=== PATIENT | male | born 1955 | race Caucasian/White ===

== ENCOUNTER → 2017-01-01 | Outpatient (CLI) | payer MEDICAID | LOC: M OUTALCOH 13:20 | PROVIDERS: ATTEND Psychiatry & Neurology Psychiatry | DX: Z13.9 Encounter for screening, unspecified (principal); F12.20 Cannabis dependence, uncomplicated ==

== ENCOUNTER 2017-01-17 15:30 | Outpatient (RCR) | payer MEDICAID | END 2017-01-22 | LOC: M OUTALCOH 15:30 | PROVIDERS: ATTEND Psychiatry & Neurology Psychiatry | DX: F12.20 Cannabis dependence, uncomplicated (principal) ==

== ENCOUNTER 2017-02-21 15:09 | Outpatient (RCR) | payer MEDICAID | END 2017-02-22 | LOC: M OUTALCOH 15:09 | PROVIDERS: ATTEND Psychiatry & Neurology Psychiatry | DX: F12.20 Cannabis dependence, uncomplicated (principal) ==

== ENCOUNTER 2017-03-21 15:00 | Outpatient (RCR) | payer MEDICAID | END 2017-03-24 | LOC: M OUTALCOH 15:00 | PROVIDERS: ATTEND Psychiatry & Neurology Psychiatry | DX: F12.20 Cannabis dependence, uncomplicated (principal) ==

== ENCOUNTER → 2017-11-05 | Outpatient (CLI) | payer MEDICAID ==
[2017-11-08 00:08] LABS: QUANTIFERON GOLD TB Negative (Negative); TB Test (QFT) Antigen 0.13 IU/mL (.); TB Test (QFT) Antigen Minus Ni 0.09 IU/mL (.); TB Test (QFT) Mitogen >10.00 IU/mL (.); TB Test (QFT) Nil 0.04 IU/mL (.)
== END ==
LOC: M LAB 12:45
DX: Z09 Encounter for follow-up examination after completed treatment for conditions other than malignant neoplasm (principal); R91.8 Other nonspecific abnormal finding of lung field; Z86.11 Personal history of tuberculosis
CPT/HCPCS: 71046

== ENCOUNTER → 2020-03-12 | Outpatient (REF) | payer MEDICAID, OTHER ==
[2020-03-12 18:25] LABS: BASO % 0.7 % (0.0-1.0); EOS # 0.1 10^3/uL (0.0-0.5); EOS % 3.1 % (0.0-3.0); HEMATOCRIT 48.1 % (42.0-52.0); HEMOGLOBIN 16.3 g/dl (13.5-17.5); LYMPH % 23.1 % (24.0-44.0); MEAN CORPUSCULAR HEMOGLOBIN 32.5 pg (27.0-33.0); MEAN CORPUSCULAR HGB CONC 33.9 g/dl (32.0-36.5); MONO # 0.5 10^3/uL (0.0-0.8); MONO % 10.2 % (0.0-5.0); NEUTROPHILS # 2.8 10^3/uL (1.5-8.5); NEUTROPHILS % 62.7 % (36.0-66.0); PLATELET COUNT, AUTOMATED 105 10^3/uL (150-450); RED BLOOD COUNT 5.01 10^6/uL (4.30-6.10); WHITE BLOOD COUNT 4.5 10^3/uL (4.0-10.0)
[2020-03-12 18:34] LABS: ALBUMIN 3.4 GM/DL (3.2-5.2); ALT/SGPT 93 U/L (12-78); BILIRUBIN,TOTAL 1.5 MG/DL (0.2-1.0); BLOOD UREA NITROGEN 15 MG/DL (7-18); CALCIUM LEVEL 8.6 MG/DL (8.8-10.2); CARBON DIOXIDE LEVEL 29 MEQ/L (21-32); CHLORIDE LEVEL 107 MEQ/L (98-107); CHOLESTEROL LEVEL 185 MG/DL (<200); CREATININE FOR GFR 0.81 MG/DL (0.70-1.30); GLOMERULAR FILTRATION RATE > 60.0 (>49); GLUCOSE, FASTING 131 MG/DL (70-100); HDL CHOLESTEROL 100 MG/DL (>40); LDL CHOLESTEROL 75 MG/DL (<100); NON-HDL-C 85 MG/DL; POTASSIUM SERUM 4.1 MEQ/L (3.5-5.1); SODIUM LEVEL 140 MEQ/L (136-145); THYROID STIMULATING HORMONE 0.711 uIU/ML (0.358-3.740); TOTAL PROTEIN 7.4 GM/DL (6.4-8.2); TRIGLYCERIDES LEVEL 50 MG/DL (<150)
[2020-03-12 18:54] LABS: HEMOGLOBIN A1c 5.1 %
== END ==
LOC: M LAB REF 16:22
PROVIDERS: ATTEND Physician Assistant
DX: I10 Essential (primary) hypertension (principal); B17.10 Acute hepatitis C without hepatic coma

== ENCOUNTER → 2021-11-22 | Outpatient (CLI) | payer MEDICARE, OTHER ==
[2021-11-22 15:50] LABS: BASO # 0.1 10^3/uL (0.0-0.2); BASO % 1.2 % (0.0-1.0); EOS # 0.1 10^3/uL (0.0-0.5); EOS % 2.6 % (0.0-3.0); HEMATOCRIT 43.5 % (42.0-52.0); HEMOGLOBIN 14.6 g/dl (13.5-17.5); LYMPH # 1.1 10^3/uL (1.5-5.0); LYMPH % 22.5 % (24.0-44.0); MEAN CORPUSCULAR HEMOGLOBIN 31.1 pg (27.0-33.0); MEAN CORPUSCULAR HGB CONC 33.6 g/dl (32.0-36.5); MEAN CORPUSCULAR VOLUME 92.6 fl (80.0-96.0); MONO # 0.6 10^3/uL (0.0-0.8); MONO % 11.2 % (2.0-8.0); NEUTROPHILS # 3.2 10^3/uL (1.5-8.5); NEUTROPHILS % 62.5 % (36.0-66.0); PLATELET COUNT, AUTOMATED 103 10^3/uL (150-450); WHITE BLOOD COUNT 5.1 10^3/uL (4.0-10.0)
[2021-11-22 16:11] LABS: INR 1.24
[2021-11-22 16:19] LABS: ALBUMIN 2.8 GM/DL (3.2-5.2); ALT/SGPT 41 U/L (12-78); BILIRUBIN,TOTAL 1.7 MG/DL (0.2-1.0); BLOOD UREA NITROGEN 12 MG/DL (7-18); CALCIUM LEVEL 8.3 MG/DL (8.8-10.2); CARBON DIOXIDE LEVEL 32 MEQ/L (21-32); CHLORIDE LEVEL 103 MEQ/L (98-107); CREATININE FOR GFR 0.87 MG/DL (0.70-1.30); GLOMERULAR FILTRATION RATE > 60.0 (>49); GLUCOSE, FASTING 92 MG/DL (70-100); POTASSIUM SERUM 3.6 MEQ/L (3.5-5.1); SODIUM LEVEL 138 MEQ/L (136-145); TOTAL PROTEIN 6.9 GM/DL (6.4-8.2)
[2021-11-22 16:40] LABS: HEPATITIS B SURFACE ANTIBODY NEGATIVE (POSITIVE)
[2021-11-22 16:50] LABS: HEPATITIS B SURFACE ANTIGEN NEGATIVE (NEGATIVE)
[2021-11-22 17:19] LABS: HIV 1&2 SCREEN CENTAUR NEGATIVE (NEGATIVE)
[2021-11-25 21:09] LABS: HEPATITIS A IgG TOTAL Positive (Negative); HEPATITIS B CORE ANTIBODY IGG Negative (Negative); HEPATITIS C QUANTITATION 946000 IU/mL (.); HEPATITIS C VIRUS GENOTYPE 1b (.)
== END ==
LOC: M PLALAB 13:24
PROVIDERS: ATTEND Internal Medicine Infectious Disease
DX: B18.2 Chronic viral hepatitis C (principal); K70.31 Alcoholic cirrhosis of liver with ascites

== ENCOUNTER → 2021-12-13 | Outpatient (CLI) | payer MEDICARE, OTHER ==
[~2021-12-13] MED LIST: ATEN50TA2 PO; FURO40TA2 PO; KRIS20PA4 PO; PANT40TA29 PO; SPIR-10 PO; TAMS1CAP17 PO
[2021-12-13 15:49] LABS: BASO # 0.1 10^3/uL (0.0-0.2); BASO % 1.2 % (0.0-1.0); EOS # 0.1 10^3/uL (0.0-0.5); EOS % 2.6 % (0.0-3.0); HEMATOCRIT 45.6 % (42.0-52.0); HEMOGLOBIN 15.2 g/dl (13.5-17.5); LYMPH # 1.1 10^3/uL (1.5-5.0); LYMPH % 21.9 % (24.0-44.0); MEAN CORPUSCULAR HEMOGLOBIN 30.8 pg (27.0-33.0); MEAN CORPUSCULAR HGB CONC 33.3 g/dl (32.0-36.5); MEAN CORPUSCULAR VOLUME 92.3 fl (80.0-96.0); MONO # 0.6 10^3/uL (0.0-0.8); MONO % 12.1 % (2.0-8.0); NEUTROPHILS # 3.1 10^3/uL (1.5-8.5); RED BLOOD COUNT 4.94 10^6/uL (4.30-6.10)
[2021-12-13 15:51] LABS: PLATELET COUNT, AUTOMATED 99 10^3/uL (150-450)
[2021-12-13 15:57] LABS: INR 1.15; PROTHROMBIN TIME 15.1 SECONDS (12.7-14.5)
[2021-12-13 15:58] LABS: PARTIAL THROMBOPLASTIN TIME 33.4 SECONDS (25.9-37.0)
[2021-12-13 15:59] LABS: BLOOD UREA NITROGEN 13 MG/DL (7-18); CARBON DIOXIDE LEVEL 33 MEQ/L (21-32); CHLORIDE LEVEL 103 MEQ/L (98-107); GLOMERULAR FILTRATION RATE > 60.0 (>49); GLUCOSE, FASTING 110 MG/DL (70-100); SODIUM LEVEL 142 MEQ/L (136-145)
[2021-12-13 16:00] LABS: ALT/SGPT 36 U/L (12-78); CALCIUM LEVEL 8.6 MG/DL (8.8-10.2); TOTAL PROTEIN 7.1 GM/DL (6.4-8.2)
== END ==
LOC: M PLAIMG 13:42
PROVIDERS: ATTEND Physician Assistant
DX: R33.8 Other retention of urine (principal); B18.2 Chronic viral hepatitis C

== ENCOUNTER → 2021-12-14 | Outpatient (REF) | payer MEDICARE, OTHER ==
[2021-12-14 18:52] LABS: APPEARANCE, URINE CLEAR (CLEAR); BACTERIA, URINE AUTO NEGATIVE (NEGATIVE); BILIRUBIN, URINE AUTO NEGATIVE (NEGATIVE); BLOOD, URINE BLOOD 2+ (NEGATIVE); COLOR, URINE YELLOW (YELLOW); GLUCOSE, URINE (UA) AUTO NEGATIVE (NEGATIVE); KETONE, URINE AUTO NEGATIVE (NEGATIVE); LEUKOCYTE ESTERASE, URINE AUTO 3+ (NEGATIVE); NITRITE, URINE AUTO NEGATIVE (NEGATIVE); PROTEIN, URINE AUTO NEGATIVE (NEGATIVE); RBC, URINE AUTO 14 /HPF (0-3); SPECIFIC GRAVITY URINE AUTO 1.009 (1.002-1.035); SQUAMOUS EPITHELIAL CELL UR AU 0 /HPF (0-6); UROBILINOGEN, URINE AUTO 0.2 mg/dL (0.0-2.0); WBC, URINE AUTO 16 /HPF (0-3)
== END ==
LOC: M SMT 16:59
PROVIDERS: ATTEND Physician Assistant
DX: Z01.818 Encounter for other preprocedural examination (principal); Z79.899 Other long term (current) drug therapy

== ENCOUNTER → 2022-01-26 | Outpatient (CLI) | payer MEDICARE, OTHER ==
[2022-01-26 17:47] LABS: BASO % 0.9 % (0.0-1.0); EOS # 0.1 10^3/uL (0.0-0.5); EOS % 1.4 % (0.0-3.0); HEMATOCRIT 36.3 % (42.0-52.0); HEMOGLOBIN 11.9 g/dl (13.5-17.5); LYMPH # 0.8 10^3/uL (1.5-5.0); LYMPH % 18.9 % (24.0-44.0); MEAN CORPUSCULAR HEMOGLOBIN 31.3 pg (27.0-33.0); MEAN CORPUSCULAR HGB CONC 32.8 g/dl (32.0-36.5); MEAN CORPUSCULAR VOLUME 95.5 fl (80.0-96.0); MONO # 0.4 10^3/uL (0.0-0.8); NEUTROPHILS % 68.6 % (36.0-66.0); PLATELET COUNT, AUTOMATED 105 10^3/uL (150-450); WHITE BLOOD COUNT 4.4 10^3/uL (4.0-10.0)
[2022-01-26 17:53] LABS: INR 1.22; PROTHROMBIN TIME 15.8 SECONDS (12.7-14.5)
[2022-01-26 21:55] LABS: ALBUMIN 3.1 GM/DL (3.2-5.2); ALT/SGPT 20 U/L (12-78); BILIRUBIN,TOTAL 3.3 MG/DL (0.2-1.0); BLOOD UREA NITROGEN 16 MG/DL (7-18); CALCIUM LEVEL 8.8 MG/DL (8.8-10.2); CARBON DIOXIDE LEVEL 29 MEQ/L (21-32); CHLORIDE LEVEL 103 MEQ/L (98-107); GLOMERULAR FILTRATION RATE > 60.0 (>49); GLUCOSE, FASTING 94 MG/DL (70-100); IRON (FE) 85 UG/DL (65-175); PERCENT SATURATION 36.2 % (19.7-50.0); POTASSIUM SERUM 3.8 MEQ/L (3.5-5.1); SODIUM LEVEL 139 MEQ/L (136-145); TOTAL IRON BINDING CAPACITY 235 UG/DL (250-450); TOTAL PROTEIN 6.7 GM/DL (6.4-8.2)
[2022-01-31 16:08] LABS: ANCA-ATYPICAL <1:20 titer (Neg:<1:20); ANTI-MITOCHONDRIAL ANTIBODY <20.0 Units (0.0-20.0); ANTINUCLEAR ANTIBODIES DIRECT Negative (Negative); CYTOPLASMIC NEUTROP AB ANCA-C <1:20 titer (Neg:<1:20); LIVER-KIDNEY MICROSOMAL ABY <20.1 Units (0.0-20.0); PERINUCLEAR AB ANCA-P <1:20 titer (Neg:<1:20)
== END ==
LOC: M PLALAB 14:57
PROVIDERS: ATTEND Internal Medicine Gastroenterology
DX: K70.31 Alcoholic cirrhosis of liver with ascites (principal)

== ENCOUNTER → 2022-01-26 | Outpatient (CLI) | payer MEDICARE, OTHER ==
[2022-01-28 20:07] LABS: HEPATITIS C QUANTITATION <15 IU/mL (.)
== END ==
LOC: M PLALAB 14:54
PROVIDERS: ATTEND Internal Medicine Infectious Disease
DX: B18.2 Chronic viral hepatitis C (principal)

== ENCOUNTER → 2022-02-13 | Outpatient (CLI) | payer MEDICARE, OTHER | LOC: M RAD 08:37 | PROVIDERS: ATTEND Internal Medicine Gastroenterology | DX: K70.31 Alcoholic cirrhosis of liver with ascites (principal) ==

== ENCOUNTER → 2022-03-15 | Outpatient (CLI) | payer MEDICARE, OTHER ==
[~2022-03-15] MED LIST changes: +LIDOCAINE 1% MDV 20ML VIAL As Ordered ONE
[2022-03-15 11:42] VITALS: BP 106/44
[2022-03-15 12:13] VITALS: BP 116/81
[2022-03-15 12:35] VITALS: BP 114/58
[2022-03-15 12:46] VITALS: BP 114/60
== END ==
LOC: M IRPRO 10:34
PROVIDERS: ATTEND Internal Medicine Gastroenterology
DX: K70.31 Alcoholic cirrhosis of liver with ascites (principal)
CPT/HCPCS: 49083; 96365; P9047

== ENCOUNTER → 2022-03-28 | Outpatient (CLI) | payer MEDICARE, MEDICAID ==
[~2022-03-28] MED LIST changes: -LIDOCAINE 1% MDV 20ML VIAL As Ordered ONE
[2022-03-28 10:53] VITALS: BP 134/84
[2022-03-28 10:58] VITALS: BP 138/110
[2022-03-28 11:02] VITALS: BP 130/78
[2022-03-28 11:32] VITALS: BP 134/73
[2022-03-28 11:45] VITALS: BP 128/72
== END ==
LOC: M IRPRO 09:27
PROVIDERS: ATTEND Internal Medicine Gastroenterology
DX: K70.31 Alcoholic cirrhosis of liver with ascites (principal)
CPT/HCPCS: 49083; 96365; P9047

== ENCOUNTER → 2022-04-18 | Outpatient (CLI) | payer MEDICARE, OTHER ==
[2022-04-18 11:14] VITALS: BP 128/79
[2022-04-18 11:29] VITALS: BP 112/70
[2022-04-18 11:36] VITALS: BP 121/79
[2022-04-18 11:45] VITALS: BP 123/83
== END ==
LOC: M IRPRO 10:24
PROVIDERS: ATTEND Internal Medicine Gastroenterology
DX: K70.31 Alcoholic cirrhosis of liver with ascites (principal)
CPT/HCPCS: 49083; 96365; P9047

== ENCOUNTER → 2022-05-02 | Outpatient (CLI) | payer MEDICAID, MEDICARE ==
[2022-05-02 14:14] VITALS: BP 135/75
[2022-05-02 14:18] VITALS: BP 131/71
[2022-05-02 14:31] VITALS: BP 132/80
[2022-05-02 14:37] VITALS: BP 133/76
[2022-05-02 15:37] LABS: APPEARANCE, BODY FLUID HAZY (CLEAR); ASCITES FL COLOR YELLOW (COLORLESS); SOURCE, BODY FLUID ASCITES
[2022-05-02 16:30] LABS: SOURCE, BODY FLUID ALBUMIN ASCITES; SOURCE, BODY FLUID TOT PROTEIN ASCITES; TOTAL PROTEIN, BODY FLUID 1.1 G/DL (NOT ESTABLISHED)
== END ==
LOC: M IRPRO 13:21
PROVIDERS: ATTEND Internal Medicine Gastroenterology
DX: K70.31 Alcoholic cirrhosis of liver with ascites (principal)
CPT/HCPCS: 49083; 82042; 84157; 88108; 88305; 88313; 89051; 96365; P9047

== ENCOUNTER 2022-05-16 10:26 | Emergency (ER) | payer MEDICARE, MEDICAID ==
[~2022-05-16] VITALS: Ht 190.5 cm; Wt 111.5 kg
[2022-05-16 10:27] VITALS: BP 150/80
[2022-05-16 11:38] LABS: BASO % 0.1 % (0.0-1.0); EOS % 0.2 % (0.0-3.0); HEMATOCRIT 41.4 % (42.0-52.0); HEMOGLOBIN 13.2 g/dl (13.5-17.5); LYMPH # 0.6 10^3/uL (1.5-5.0); LYMPH % 6.3 % (24.0-44.0); MEAN CORPUSCULAR HEMOGLOBIN 30.8 pg (27.0-33.0); MEAN CORPUSCULAR HGB CONC 31.9 g/dl (32.0-36.5); MEAN CORPUSCULAR VOLUME 96.5 fl (80.0-96.0); MONO # 1.1 10^3/uL (0.0-0.8); MONO % 11.7 % (2.0-8.0); NEUTROPHILS # 7.6 10^3/uL (1.5-8.5); NEUTROPHILS % 81.4 % (36.0-66.0); PLATELET COUNT, AUTOMATED 111 10^3/uL (150-450); RED BLOOD COUNT 4.29 10^6/uL (4.30-6.10); WHITE BLOOD COUNT 9.3 10^3/uL (4.0-10.0)
[2022-05-16 11:51] LABS: INR 1.33; PROTHROMBIN TIME 16.7 SECONDS (12.5-14.5)
[2022-05-16 11:52] LABS: PARTIAL THROMBOPLASTIN TIME 32.2 SECONDS (24.8-34.2)
[2022-05-16 12:07] LABS: ALBUMIN 2.7 G/DL (3.2-5.2); ALKALINE PHOSPHATASE 122 U/L (46-116); ALT/SGPT 24 U/L (7.0-40); AST/SGOT 29 U/L (<34); BILIRUBIN,DIRECT 1.9 MG/DL (<0.4); BLOOD UREA NITROGEN 34 MG/DL (9-23); CALCIUM LEVEL 7.9 MG/DL (8.3-10.6); CARBON DIOXIDE LEVEL 27 MMOL/L (20-31); CHLORIDE LEVEL 101 MMOL/L (98-107); GLOMERULAR FILTRATION RATE > 60.0 (>49); GLUCOSE, FASTING 112 MG/DL (74-106); LIPASE 28 U/L (12-53); POTASSIUM SERUM 3.9 MMOL/L (3.5-5.1); SODIUM LEVEL 137 MMOL/L (136-145); TOTAL PROTEIN 5.8 G/DL (5.7-8.2)
== END 2022-05-16 13:59 | disposition left against medical advice (07) ==
LOC: M ED 10:26
DX: R18.8 Other ascites (principal); I25.2 Old myocardial infarction; K74.60 Unspecified cirrhosis of liver; Z79.899 Other long term (current) drug therapy; Z86.69 Personal history of other diseases of the nervous system and sense organs
CPT/HCPCS: 36415; 80048; 80076; 83690; 85025; 85610; 85730; 99281; G0463

== ENCOUNTER → 2022-05-17 | Outpatient (CLI) | payer MEDICARE ==
[~2022-05-17] MED LIST changes: +ALBU8.5H INH; +ERGO500029 PO; +LACT20EL PO; +OXYB10TA23 PO; +SPIR100T3 PO; +TRIA1CR80 TOP; +XIFA550T PO
[2022-05-17 13:48] VITALS: BP 147/84
[2022-05-17 13:58] VITALS: BP 147/84
[2022-05-17 14:07] VITALS: BP 144/86
== END ==
LOC: M IRPRO 12:07
PROVIDERS: ATTEND Internal Medicine Gastroenterology
DX: K70.31 Alcoholic cirrhosis of liver with ascites (principal)
CPT/HCPCS: 49083; 96365; P9047

== ENCOUNTER 2022-05-22 14:15 | Emergency (ER) | payer MEDICARE ==
[~2022-05-22] VITALS: Ht 190.5 cm; Wt 108.2 kg
[~2022-05-22 14:15] MED LIST changes: -ALBU8.5H INH; -ERGO500029 PO; -LACT20EL PO; -OXYB10TA23 PO; -SPIR100T3 PO; -TRIA1CR80 TOP; -XIFA550T PO
[2022-05-22 15:20] LABS: BASO % 0.4 % (0.0-1.0); EOS % 0.3 % (0.0-3.0); HEMATOCRIT 41.5 % (42.0-52.0); HEMOGLOBIN 13.4 g/dl (13.5-17.5); LYMPH # 0.9 10^3/uL (1.5-5.0); LYMPH % 7.9 % (24.0-44.0); MEAN CORPUSCULAR HEMOGLOBIN 30.5 pg (27.0-33.0); MEAN CORPUSCULAR HGB CONC 32.3 g/dl (32.0-36.5); MEAN CORPUSCULAR VOLUME 94.3 fl (80.0-96.0); MONO # 0.9 10^3/uL (0.0-0.8); MONO % 8.4 % (2.0-8.0); NEUTROPHILS # 9.1 10^3/uL (1.5-8.5); NEUTROPHILS % 82.5 % (36.0-66.0); PLATELET COUNT, AUTOMATED 186 10^3/uL (150-450)
[2022-05-22 15:45] LABS: CHLORIDE LEVEL 103 MMOL/L (98-107); POTASSIUM SERUM 4.1 MMOL/L (3.5-5.1); SODIUM LEVEL 138 MMOL/L (136-145)
[2022-05-22 15:46] LABS: ALBUMIN 2.6 G/DL (3.2-5.2); CARBON DIOXIDE LEVEL 27 MMOL/L (20-31)
[2022-05-22 15:51] LABS: BLOOD UREA NITROGEN 23 MG/DL (9-23); CALCIUM LEVEL 8.1 MG/DL (8.3-10.6); GLUCOSE, FASTING 123 MG/DL (74-106)
[2022-05-22 15:52] LABS: ALKALINE PHOSPHATASE 163 U/L (46-116); LIPASE 20 U/L (12-53)
[2022-05-22 15:53] LABS: ALT/SGPT 35 U/L (7.0-40); AST/SGOT 35 U/L (<34); BILIRUBIN,TOTAL 1.7 MG/DL (0.3-1.2); CREATININE FOR GFR 0.98 MG/DL (0.70-1.30); GLOMERULAR FILTRATION RATE > 60.0 (>49); TOTAL PROTEIN 5.7 G/DL (5.7-8.2)
[2022-05-22] MEDS ORDERED: TRIA1CR80 TOP (20:14)
[2022-05-22] MEDS ORDERED: ERGO500029 PO (20:14)
[2022-05-22] MEDS ORDERED: XIFA550T PO (20:14)
[2022-05-22] MEDS ORDERED: SPIR100T3 PO (20:14)
[2022-05-22] MEDS ORDERED: LACT20EL PO (20:14)
[2022-05-22] MEDS ORDERED: ALBU8.5H INH (20:14)
[2022-05-22] MEDS ORDERED: OXYB10TA23 PO (20:14)
[2022-05-22] MEDS ORDERED: HOME MED LIST COMPLETE! XX SCH (20:15)
[2022-05-22 20:18] VITALS: BP 119/74
== END 2022-05-22 21:44 | disposition home or self-care (01) ==
LOC: M ED 14:15
DX: K40.90 Unilateral inguinal hernia, without obstruction or gangrene, not specified as recurrent (principal); K42.9 Umbilical hernia without obstruction or gangrene; I10 Essential (primary) hypertension; B18.2 Chronic viral hepatitis C; Z87.891 Personal history of nicotine dependence; Z79.51 Long term (current) use of inhaled steroids; Z79.2 Long term (current) use of antibiotics; Z79.83 Long term (current) use of bisphosphonates; Z79.899 Other long term (current) drug therapy

== ENCOUNTER → 2022-05-25 | Outpatient (CLI) | payer MEDICARE ==
[~2022-05-25] MED LIST changes: +ALBU8.5H INH; +ERGO500029 PO; +LACT20EL PO; +OXYB10TA23 PO; +SPIR100T3 PO; +TRIA1CR80 TOP; +XIFA550T PO
[2022-05-25 15:15] LABS: HEMOGLOBIN 12.7 g/dl (13.5-17.5); MEAN CORPUSCULAR HEMOGLOBIN 30.3 pg (27.0-33.0); MEAN CORPUSCULAR HGB CONC 32.6 g/dl (32.0-36.5); MEAN CORPUSCULAR VOLUME 93.1 fl (80.0-96.0); PLATELET COUNT, AUTOMATED 160 10^3/uL (150-450); RED BLOOD COUNT 4.19 10^6/uL (4.30-6.10); WHITE BLOOD COUNT 6.1 10^3/uL (4.0-10.0)
[2022-05-25 15:40] LABS: ALBUMIN 3.2 G/DL (3.2-5.2); ALKALINE PHOSPHATASE 159 U/L (46-116); ALT/SGPT 32 U/L (7.0-40); AST/SGOT 37 U/L (<34); BILIRUBIN,TOTAL 1.6 MG/DL (0.3-1.2); BLOOD UREA NITROGEN 22 MG/DL (9-23); CALCIUM LEVEL 8.2 MG/DL (8.3-10.6); CARBON DIOXIDE LEVEL 27 MMOL/L (20-31); CHLORIDE LEVEL 103 MMOL/L (98-107); CREATININE FOR GFR 0.88 MG/DL (0.70-1.30); GLOMERULAR FILTRATION RATE > 60.0 (>49); GLUCOSE, FASTING 118 MG/DL (74-106); POTASSIUM SERUM 3.9 MMOL/L (3.5-5.1); SODIUM LEVEL 138 MMOL/L (136-145)
[2022-05-28 02:06] LABS: HEPATITIS C QUANTITATION HCV Not Detected IU/mL (.)
== END ==
LOC: M LAB 13:54
PROVIDERS: ATTEND Internal Medicine Infectious Disease
DX: B18.2 Chronic viral hepatitis C (principal)

== ENCOUNTER → 2022-05-25 | Outpatient (CLI) | payer MEDICARE ==
[2022-05-25 12:07] VITALS: BP 122/71
[2022-05-25 12:17] VITALS: BP 132/82
[2022-05-25 12:25] VITALS: BP 141/88
[2022-05-25 12:32] VITALS: BP 141/88
== END ==
LOC: M IRPRO 10:36
PROVIDERS: ATTEND Internal Medicine Gastroenterology
DX: K70.31 Alcoholic cirrhosis of liver with ascites (principal)
CPT/HCPCS: 36415; 49083; 80053; 85027; 87522; 96365; P9047

== ENCOUNTER → 2022-06-01 | Outpatient (CLI) | payer MEDICARE ==
[2022-06-01 11:25] LABS: BASO # 0.1 10^3/uL (0.0-0.2); EOS # 0.1 10^3/uL (0.0-0.5); EOS % 1.4 % (0.0-3.0); HEMATOCRIT 39.4 % (42.0-52.0); HEMOGLOBIN 12.9 g/dl (13.5-17.5); LYMPH # 0.8 10^3/uL (1.5-5.0); LYMPH % 16.3 % (24.0-44.0); MEAN CORPUSCULAR HEMOGLOBIN 30.1 pg (27.0-33.0); MEAN CORPUSCULAR HGB CONC 32.7 g/dl (32.0-36.5); MEAN CORPUSCULAR VOLUME 91.8 fl (80.0-96.0); MONO # 0.5 10^3/uL (0.0-0.8); MONO % 9.5 % (2.0-8.0); NEUTROPHILS # 3.6 10^3/uL (1.5-8.5); NEUTROPHILS % 71.6 % (36.0-66.0); PLATELET COUNT, AUTOMATED 116 10^3/uL (150-450); RED BLOOD COUNT 4.29 10^6/uL (4.30-6.10)
[2022-06-01 11:38] LABS: ALBUMIN 2.5 G/DL (3.2-5.2); ALKALINE PHOSPHATASE 158 U/L (46-116); ALT/SGPT 30 U/L (7.0-40); AST/SGOT 32 U/L (<34); BILIRUBIN,TOTAL 1.1 MG/DL (0.3-1.2); BLOOD UREA NITROGEN 25 MG/DL (9-23); CARBON DIOXIDE LEVEL 27 MMOL/L (20-31); CHLORIDE LEVEL 102 MMOL/L (98-107); CREATININE FOR GFR 0.99 MG/DL (0.70-1.30); GLOMERULAR FILTRATION RATE > 60.0 (>49); GLUCOSE, FASTING 165 MG/DL (74-106); POTASSIUM SERUM 3.6 MMOL/L (3.5-5.1); SODIUM LEVEL 136 MMOL/L (136-145); TOTAL PROTEIN 5.3 G/DL (5.7-8.2)
[2022-06-01 11:40] VITALS: BP 122/71
[2022-06-01 11:48] VITALS: BP 119/70
[2022-06-01 11:56] VITALS: BP 120/71
[2022-06-01 12:00] VITALS: BP 121/69
[2022-06-03 00:08] LABS: HEPATITIS C QUANTITATION HCV Not Detected IU/mL (.)
== END ==
LOC: M IRPRO 10:04
PROVIDERS: ATTEND Internal Medicine Gastroenterology
DX: K70.31 Alcoholic cirrhosis of liver with ascites (principal)
CPT/HCPCS: 49083; 51702; 80053; 82105; 85025; 87522; 96365; G0463; P9047

== ENCOUNTER → 2022-06-08 | Outpatient (CLI) | payer MEDICARE ==
[2022-06-08 11:21] VITALS: BP 116/71
[2022-06-08 11:31] VITALS: BP 118/75
[2022-06-08 11:38] VITALS: BP 118/76
[2022-06-08 11:43] VITALS: BP 117/72
[2022-06-08 11:49] VITALS: BP 115/75
== END ==
LOC: M IRPRO 10:05
PROVIDERS: ATTEND Internal Medicine Gastroenterology
DX: K70.31 Alcoholic cirrhosis of liver with ascites (principal)
CPT/HCPCS: 49083; 96365; P9047

== ENCOUNTER → 2022-06-14 | Outpatient (CLI) | payer MEDICARE, OTHER ==
[2022-06-14 15:19] VITALS: BP 116/61
[2022-06-14 15:23] VITALS: BP 120/68
[2022-06-14 15:29] VITALS: BP 112/64
[2022-06-14 15:35] VITALS: BP 115/65
[2022-06-14 15:38] VITALS: BP 130/82
== END ==
LOC: M IRPRO 12:46
PROVIDERS: ATTEND Internal Medicine Gastroenterology
DX: K70.31 Alcoholic cirrhosis of liver with ascites (principal)
CPT/HCPCS: 49083; 96365; P9047

== ENCOUNTER → 2022-06-22 | Outpatient (CLI) | payer MEDICARE ==
[2022-06-22 11:18] VITALS: BP 131/70
[2022-06-22 11:26] VITALS: BP 160/72
[2022-06-22 11:33] VITALS: BP 132/75
[2022-06-22 11:40] VITALS: BP 134/74
[2022-06-22 11:47] VITALS: BP 142/82
== END ==
LOC: M IRPRO 09:56
PROVIDERS: ATTEND Internal Medicine Gastroenterology
DX: R18.8 Other ascites (principal); K74.60 Unspecified cirrhosis of liver
CPT/HCPCS: 49083; 96365; P9047

== ENCOUNTER → 2022-06-29 | Outpatient (CLI) | payer MEDICARE ==
[2022-06-29 10:22] VITALS: BP 127/72
[2022-06-29 10:32] VITALS: BP 133/68
[2022-06-29 10:41] VITALS: BP 128/69
[2022-06-29 10:53] VITALS: BP 111/63
== END ==
LOC: M IRPRO 09:44
PROVIDERS: ATTEND Internal Medicine Gastroenterology
DX: K70.31 Alcoholic cirrhosis of liver with ascites (principal)
CPT/HCPCS: 49083; 96365; P9047

== ENCOUNTER → 2022-07-07 | Outpatient (CLI) | payer MEDICARE, OTHER ==
[~2022-07-07] MED LIST changes: +LIDOCAINE 1% MDV 20ML VIAL As Ordered ONE
[2022-07-07 12:39] VITALS: BP 117/80
[2022-07-07 12:49] VITALS: BP 124/71
[2022-07-07 13:07] VITALS: BP 128/65
[2022-07-07 13:20] VITALS: BP 114/70
== END ==
LOC: M IRPRO 12:07
PROVIDERS: ATTEND Internal Medicine Gastroenterology
DX: R18.8 Other ascites (principal)
CPT/HCPCS: 49083; 96365; P9047

== ENCOUNTER → 2022-07-13 | Outpatient (CLI) | payer MEDICARE, OTHER ==
[2022-07-13 12:04] VITALS: BP 112/70
[2022-07-13 12:14] VITALS: BP 111/64
[2022-07-13 12:24] VITALS: BP 111/62
[2022-07-13 12:31] VITALS: BP 118/65
== END ==
LOC: M IRPRO 10:47
PROVIDERS: ATTEND Internal Medicine Gastroenterology
DX: K70.31 Alcoholic cirrhosis of liver with ascites (principal)
CPT/HCPCS: 49083; 96365; P9047

== ENCOUNTER → 2022-07-18 | Outpatient (POV) | payer MEDICARE ==
[~2022-07-18] VITALS: Ht 190.5 cm; Wt 100.9 kg
[~2022-07-18] MED LIST changes: -LIDOCAINE 1% MDV 20ML VIAL As Ordered ONE
[2022-07-18 09:30] VITALS: BP 125/86
== END ==
LOC: M IRPOV 09:16
PROVIDERS: ATTEND Radiology Diagnostic Radiology
DX: K70.30 Alcoholic cirrhosis of liver without ascites (principal); R18.8 Other ascites; R41.89 Other symptoms and signs involving cognitive functions and awareness; Z79.51 Long term (current) use of inhaled steroids; Z79.899 Other long term (current) drug therapy; Z86.11 Personal history of tuberculosis; Z86.19 Personal history of other infectious and parasitic diseases; Z87.891 Personal history of nicotine dependence

== ENCOUNTER → 2022-07-20 | Outpatient (CLI) | payer MEDICARE, OTHER ==
[~2022-07-20] MED LIST changes: +LIDOCAINE 1% MDV 20ML VIAL As Ordered ONE
[2022-07-20 14:11] VITALS: BP 118/58
[2022-07-20 14:34] VITALS: BP 119/72
[2022-07-20 14:36] VITALS: BP 123/77
[2022-07-20 14:57] VITALS: BP 115/79
[2022-07-20 15:34] VITALS: BP 123/76
== END ==
LOC: M IRPRO 13:51
PROVIDERS: ATTEND Internal Medicine Gastroenterology
DX: K70.31 Alcoholic cirrhosis of liver with ascites (principal)
CPT/HCPCS: 49083; 96365; P9047

== ENCOUNTER → 2022-07-27 | Outpatient (CLI) | payer MEDICARE, OTHER ==
[~2022-07-27] MED LIST changes: -LIDOCAINE 1% MDV 20ML VIAL As Ordered ONE
[2022-07-27 11:16] VITALS: BP 135/91
[2022-07-27 11:19] VITALS: BP 137/89
[2022-07-27 11:24] VITALS: BP 125/84
[2022-07-27 11:27] VITALS: BP 144/81
[2022-07-27 11:45] VITALS: BP 144/79
== END ==
LOC: M IRPRO 10:37
PROVIDERS: ATTEND Internal Medicine Gastroenterology
DX: K70.31 Alcoholic cirrhosis of liver with ascites (principal)
CPT/HCPCS: 49083; 96365; P9047

== ENCOUNTER → 2022-08-03 | Outpatient (CLI) | payer MEDICARE, OTHER ==
[~2022-08-03] MED LIST changes: +LIDOCAINE 1% MDV 20ML VIAL As Ordered ONE
[2022-08-03 14:29] VITALS: BP 135/65
[2022-08-03 14:35] VITALS: BP 116/73
[2022-08-03 14:40] VITALS: BP 117/67
[2022-08-03 14:45] VITALS: BP 127/80
[2022-08-03 14:54] VITALS: BP 125/76
== END ==
LOC: M IRPRO 14:01
PROVIDERS: ATTEND Internal Medicine Gastroenterology
DX: K70.31 Alcoholic cirrhosis of liver with ascites (principal)
CPT/HCPCS: 49083; 96365; P9047

== ENCOUNTER → 2022-08-07 | Outpatient (CLI) | payer MEDICARE, OTHER ==
[~2022-08-07] MED LIST changes: -LIDOCAINE 1% MDV 20ML VIAL As Ordered ONE
[2022-08-07 14:38] LABS: EOS # 0.1 10^3/uL (0.0-0.5); EOS % 2.9 % (0.0-3.0); HEMOGLOBIN 13.2 g/dl (13.5-17.5); LYMPH # 0.8 10^3/uL (1.5-5.0); LYMPH % 19.5 % (24.0-44.0); MEAN CORPUSCULAR HEMOGLOBIN 30.7 pg (27.0-33.0); MEAN CORPUSCULAR HGB CONC 33.8 g/dl (32.0-36.5); MEAN CORPUSCULAR VOLUME 90.7 fl (80.0-96.0); MONO # 0.5 10^3/uL (0.0-0.8); MONO % 10.7 % (2.0-8.0); NEUTROPHILS # 2.8 10^3/uL (1.5-8.5); NEUTROPHILS % 65.7 % (36.0-66.0); WHITE BLOOD COUNT 4.2 10^3/uL (4.0-10.0)
[2022-08-07 15:04] LABS: ALKALINE PHOSPHATASE 108 U/L (46-116); ALT/SGPT 20 U/L (7.0-40); AST/SGOT 30 U/L (<34); BLOOD UREA NITROGEN 15 MG/DL (9-23); CARBON DIOXIDE LEVEL 30 MMOL/L (20-31); CHLORIDE LEVEL 102 MMOL/L (98-107); CREATININE FOR GFR 1.18 MG/DL (0.70-1.30); GLOMERULAR FILTRATION RATE > 60.0 (>49); GLUCOSE, FASTING 88 MG/DL (74-106); POTASSIUM SERUM 4.1 MMOL/L (3.5-5.1); SODIUM LEVEL 137 MMOL/L (136-145); TOTAL PROTEIN 5.3 G/DL (5.7-8.2)
[2022-08-07 15:13] LABS: PLATELET COUNT, AUTOMATED 69 10^3/uL (150-450)
[2022-08-08 20:11] LABS: HEPATITIS C QUANTITATION HCV Not Detected IU/mL (.)
== END ==
LOC: M PLALAB 10:23
PROVIDERS: ATTEND Internal Medicine Infectious Disease
DX: B18.2 Chronic viral hepatitis C (principal)

== ENCOUNTER → 2022-08-10 | Outpatient (CLI) | payer MEDICARE, OTHER ==
[2022-08-10 09:56] VITALS: BP 143/68
[2022-08-10 10:07] VITALS: BP 134/87
[2022-08-10 10:25] VITALS: BP 107/59
[2022-08-10 10:31] VITALS: BP 109/60
[2022-08-10 10:35] VITALS: BP 120/70
== END ==
LOC: M IRPRO 09:22
PROVIDERS: ATTEND Internal Medicine Gastroenterology
DX: K70.31 Alcoholic cirrhosis of liver with ascites (principal)
CPT/HCPCS: 49083; 96365; P9047

== ENCOUNTER → 2022-08-16 | Outpatient (CLI) | payer MEDICARE, OTHER ==
[~2022-08-16] MED LIST changes: +HYDR-3363 PO
[2022-08-16 15:13] VITALS: BP 129/82
[2022-08-16 15:23] VITALS: BP 135/88
[2022-08-16 15:32] VITALS: BP 153/85
[2022-08-16 15:44] VITALS: BP 120/71
[2022-08-16 16:00] VITALS: BP 127/81
[2022-08-16 16:09] VITALS: BP 139/85
== END ==
LOC: M IRPRO 14:19
PROVIDERS: ATTEND Internal Medicine Gastroenterology
DX: K70.31 Alcoholic cirrhosis of liver with ascites (principal)
CPT/HCPCS: 49083; 96365; P9047

== ENCOUNTER → 2022-08-23 | Outpatient (CLI) | payer MEDICARE ==
[2022-08-23 14:37] VITALS: BP 131/84
[2022-08-23 14:41] VITALS: BP 131/82
[2022-08-23 14:45] VITALS: BP 128/77
[2022-08-23 14:50] VITALS: BP 144/86
[2022-08-23 14:52] VITALS: BP 122/76
== END ==
LOC: M IRPRO 13:18
PROVIDERS: ATTEND Internal Medicine Gastroenterology
DX: K70.31 Alcoholic cirrhosis of liver with ascites (principal)
CPT/HCPCS: 49083; 96365; P9047

== ENCOUNTER → 2022-08-24 | Outpatient (CLI) | payer MEDICARE, OTHER | LOC: M LABSMTC 09:40 | PROVIDERS: ATTEND Anesthesiology | DX: Z01.812 Encounter for preprocedural laboratory examination (principal); Z20.822 Contact with and (suspected) exposure to COVID-19 ==

== ENCOUNTER 2022-08-29 12:58 | Day surgery (SDC) | payer MEDICARE, OTHER ==
[~2022-08-29] VITALS: Ht 190.5 cm; Wt 98.9 kg
[~2022-08-29 12:58] MED LIST changes: +NS 1,000 ML IV ONE
[2022-08-29 16:31] VITALS: BP 143/77
== END 2022-08-29 16:33 | disposition home or self-care (01) ==
LOC: M OPP 12:58
PROVIDERS: ATTEND Internal Medicine Gastroenterology
DX: I85.01 Esophageal varices with bleeding (principal); K76.6 Portal hypertension; K31.89 Other diseases of stomach and duodenum; I45.6 Pre-excitation syndrome; B19.20 Unspecified viral hepatitis C without hepatic coma; F32.9 Major depressive disorder, single episode, unspecified; Z87.891 Personal history of nicotine dependence; R33.8 Other retention of urine; Z79.51 Long term (current) use of inhaled steroids; Z79.899 Other long term (current) drug therapy; Z88.5 Allergy status to narcotic agent

== ENCOUNTER → 2022-08-30 | Outpatient (CLI) | payer MEDICARE, OTHER ==
[~2022-08-30] MED LIST changes: -NS 1,000 ML IV ONE
[2022-08-30 14:58] VITALS: BP 146/83
[2022-08-30 15:05] VITALS: BP 146/87
[2022-08-30 15:09] VITALS: BP 137/74
[2022-08-30 15:11] VITALS: BP 141/79
[2022-08-30 15:13] VITALS: BP 145/78
== END ==
LOC: M IRPRO 13:19
PROVIDERS: ATTEND Internal Medicine Gastroenterology
DX: K70.31 Alcoholic cirrhosis of liver with ascites (principal)
CPT/HCPCS: 49083; 96365; P9047

== ENCOUNTER → 2022-09-06 | Outpatient (CLI) | payer MEDICARE, OTHER ==
[2022-09-06 14:06] VITALS: BP 131/62
[2022-09-06 14:17] VITALS: BP 120/70
[2022-09-06 14:29] VITALS: BP 126/75
[2022-09-06 14:38] VITALS: BP 120/71
== END ==
LOC: M IRPRO 13:35
PROVIDERS: ATTEND Internal Medicine Gastroenterology
DX: K70.31 Alcoholic cirrhosis of liver with ascites (principal)
CPT/HCPCS: 49083; 96365; P9047

== ENCOUNTER → 2022-09-14 | Outpatient (CLI) | payer MEDICARE, OTHER ==
[2022-09-14 11:10] VITALS: BP 120/75
[2022-09-14 11:22] VITALS: BP 119/65
[2022-09-14 11:34] VITALS: BP 128/69
[2022-09-14 11:59] VITALS: BP 123/63
== END ==
LOC: M IRPRO 09:59
PROVIDERS: ATTEND Internal Medicine Gastroenterology
DX: R18.8 Other ascites (principal)
CPT/HCPCS: 49083; 96365; P9047

== ENCOUNTER → 2022-09-21 | Outpatient (CLI) | payer MEDICARE, OTHER ==
[2022-09-21 10:03] VITALS: BP 127/71
[2022-09-21 10:10] VITALS: BP 116/77
[2022-09-21 10:24] VITALS: BP 126/70
[2022-09-21 10:26] VITALS: BP 109/68
[2022-09-21 10:30] VITALS: BP 122/72
== END ==
LOC: M IRPRO 09:19
PROVIDERS: ATTEND Internal Medicine Gastroenterology
DX: R18.8 Other ascites (principal)
CPT/HCPCS: 49083; 96365; P9047

== ENCOUNTER → 2022-09-28 | Outpatient (CLI) | payer MEDICARE ==
[2022-09-28 12:56] VITALS: BP 120/78
[2022-09-28 13:00] VITALS: BP 122/68
[2022-09-28 13:05] VITALS: BP 115/71
[2022-09-28 13:10] VITALS: BP 122/69
== END ==
LOC: M IRPRO 12:18
PROVIDERS: ATTEND Internal Medicine Gastroenterology
DX: R18.8 Other ascites (principal)
CPT/HCPCS: 49083; 96365; P9047

== ENCOUNTER 2022-09-29 13:03 | Day surgery (SDC) | payer MEDICARE ==
[~2022-09-29] VITALS: Ht 190.5 cm; Wt 95.0 kg
[~2022-09-29 13:03] MED LIST changes: +NS 1,000 ML IV ONE
[2022-09-29] MEDS ORDERED: propofoL 200 MG/20 ML VIAL As Ordered ONE (14:35)
[2022-09-29] MEDS ORDERED: LIDOCAINE 2% 100MG/5ML SDV (FOR ANES.) As Ordered ONE (14:35)
[2022-09-29] MEDS ORDERED: fentaNYL 100 MCG/2 ML INJECTION As Ordered ONE (14:36)
[2022-09-29 16:38] VITALS: BP 122/72
== END 2022-09-29 16:37 | disposition home or self-care (01) ==
LOC: M OPP 13:03
PROVIDERS: ATTEND Internal Medicine Gastroenterology
DX: K31.89 Other diseases of stomach and duodenum (principal); K76.6 Portal hypertension; I85.00 Esophageal varices without bleeding; K74.60 Unspecified cirrhosis of liver; Z79.51 Long term (current) use of inhaled steroids; Z79.899 Other long term (current) drug therapy; Z86.79 Personal history of other diseases of the circulatory system; Z86.19 Personal history of other infectious and parasitic diseases; Z87.891 Personal history of nicotine dependence
CPT/HCPCS: 43235; J3010

== ENCOUNTER → 2022-10-05 | Outpatient (CLI) | payer MEDICARE, OTHER ==
[~2022-10-05] MED LIST changes: -NS 1,000 ML IV ONE
[2022-10-05 13:07] VITALS: BP 125/70
[2022-10-05 13:12] VITALS: BP 138/79
[2022-10-05 13:17] VITALS: BP 122/75
[2022-10-05 13:21] VITALS: BP 123/80
[2022-10-05 13:26] VITALS: BP 122/75
== END ==
LOC: M IRPRO 12:05
PROVIDERS: ATTEND Internal Medicine Gastroenterology
DX: R18.8 Other ascites (principal)
CPT/HCPCS: 49083; 96365; P9047

== ENCOUNTER → 2022-10-12 | Outpatient (CLI) | payer MEDICARE, OTHER ==
[~2022-10-12] MED LIST changes: +LIDOCAINE 1% MDV 20ML VIAL As Ordered ONE
[2022-10-12 12:01] VITALS: BP 119/72
[2022-10-12 12:15] VITALS: BP 115/69
[2022-10-12 12:39] VITALS: BP 109/63
== END ==
LOC: M IRPRO 11:04
PROVIDERS: ATTEND Internal Medicine Gastroenterology
DX: R18.8 Other ascites (principal)
CPT/HCPCS: 49083; 96365; P9047

== ENCOUNTER → 2022-10-18 | Outpatient (CLI) | payer MEDICARE, OTHER ==
[~2022-10-18] MED LIST changes: -LIDOCAINE 1% MDV 20ML VIAL As Ordered ONE; +SPIR50TA4 PO
[2022-10-18 14:07] LABS: BASO # 0.1 10^3/uL (0.0-0.2); BASO % 1.3 % (0.0-1.0); EOS # 0.1 10^3/uL (0.0-0.5); EOS % 2.9 % (0.0-3.0); HEMATOCRIT 38.3 % (42.0-52.0); HEMOGLOBIN 12.8 g/dl (13.5-17.5); LYMPH # 0.7 10^3/uL (1.5-5.0); LYMPH % 18.4 % (24.0-44.0); MEAN CORPUSCULAR HEMOGLOBIN 31.1 pg (27.0-33.0); MEAN CORPUSCULAR HGB CONC 33.4 g/dl (32.0-36.5); MONO # 0.3 10^3/uL (0.0-0.8); MONO % 9.1 % (2.0-8.0); NEUTROPHILS # 2.6 10^3/uL (1.5-8.5); RED BLOOD COUNT 4.12 10^6/uL (4.30-6.10); WHITE BLOOD COUNT 3.8 10^3/uL (4.0-10.0)
[2022-10-18 14:14] LABS: PLATELET COUNT, AUTOMATED 67 10^3/uL (150-450)
[2022-10-18 14:29] LABS: ALBUMIN 3.1 G/DL (3.2-5.2); ALKALINE PHOSPHATASE 129 U/L (46-116); ALT/SGPT 18 U/L (7.0-40); AST/SGOT 23 U/L (<34); BILIRUBIN,DIRECT 0.8 MG/DL (<0.4); BILIRUBIN,TOTAL 1.5 MG/DL (0.3-1.2); BLOOD UREA NITROGEN 18 MG/DL (9-23); CREATININE FOR GFR 0.99 MG/DL (0.70-1.30); GLOMERULAR FILTRATION RATE > 60.0 (>49); TOTAL PROTEIN 5.7 G/DL (5.7-8.2)
== END ==
LOC: M PLALAB 12:06
PROVIDERS: ATTEND Internal Medicine Gastroenterology
DX: K70.31 Alcoholic cirrhosis of liver with ascites (principal)

== ENCOUNTER → 2022-10-19 | Outpatient (CLI) | payer MEDICARE, OTHER ==
[~2022-10-19] MED LIST changes: -SPIR50TA4 PO
[2022-10-19 10:45] VITALS: BP 115/79
[2022-10-19 10:53] VITALS: BP 135/63
[2022-10-19 11:02] VITALS: BP 126/77
[2022-10-19 11:13] VITALS: BP 123/66
[2022-10-19 11:19] VITALS: BP 130/74
== END ==
LOC: M IRPRO 10:10
PROVIDERS: ATTEND Internal Medicine Gastroenterology
DX: R18.8 Other ascites (principal)
CPT/HCPCS: 49083; 96365; P9047

== ENCOUNTER → 2022-10-26 | Outpatient (CLI) | payer MEDICARE, OTHER ==
[~2022-10-26] MED LIST changes: +SPIR50TA4 PO
[2022-10-26 11:05] LABS: INR 1.12; PLATELET COUNT, AUTOMATED 67 10^3/uL (150-450); PROTHROMBIN TIME 14.6 SECONDS (12.5-14.5)
[2022-10-26 11:21] VITALS: BP 125/77
[2022-10-26 11:44] VITALS: BP 115/66
[2022-10-26 11:52] VITALS: BP 118/72
[2022-10-26 12:00] VITALS: BP 106/64
[2022-10-26 12:15] VITALS: BP 115/69
== END ==
LOC: M IRPRO 10:04
PROVIDERS: ATTEND Internal Medicine Gastroenterology
DX: R18.8 Other ascites (principal)
CPT/HCPCS: 49083; 85027; 85049; 85055; 85610; 96365; P9047

== ENCOUNTER → 2022-11-02 | Outpatient (CLI) | payer MEDICARE, OTHER ==
[2022-11-02 11:19] VITALS: BP 131/72
[2022-11-02 11:23] VITALS: BP 128/78
[2022-11-02 11:27] VITALS: BP 114/85
[2022-11-02 11:31] VITALS: BP 133/76
[2022-11-02 11:40] VITALS: BP 123/72
== END ==
LOC: M IRPRO 10:45
PROVIDERS: ATTEND Internal Medicine Gastroenterology
DX: R18.8 Other ascites (principal)
CPT/HCPCS: 49083; 96374; P9047

== ENCOUNTER → 2022-11-09 | Outpatient (CLI) | payer MEDICARE, OTHER | LOC: M RAD 06:31 | PROVIDERS: ATTEND Internal Medicine Gastroenterology | DX: K70.31 Alcoholic cirrhosis of liver with ascites (principal) ==

== ENCOUNTER → 2022-11-09 | Outpatient (CLI) | payer MEDICARE, OTHER ==
[2022-11-09 08:34] VITALS: BP 119/73
[2022-11-09 08:45] VITALS: BP 115/72
[2022-11-09 08:49] VITALS: BP 114/70
[2022-11-09 08:53] VITALS: BP 117/73
== END ==
LOC: M IRPRO 06:37
PROVIDERS: ATTEND Internal Medicine Gastroenterology
DX: R18.8 Other ascites (principal)
CPT/HCPCS: 49083; 76705; 96365; P9047

== ENCOUNTER → 2022-11-16 | Outpatient (CLI) | payer MEDICARE, OTHER ==
[2022-11-16 10:20] VITALS: BP 140/85; TEMP 97.9; O2SAT 97
[2022-11-16 10:27] VITALS: BP 113/64; TEMP 97.9; O2SAT 97
[2022-11-16 10:29] VITALS: BP 127/73; TEMP 97.9; O2SAT 98
[2022-11-16 10:33] VITALS: BP 119/71; TEMP 98.9; O2SAT 97
[2022-11-16 10:36] VITALS: BP 121/74; TEMP 98.6; O2SAT 98
[2022-11-16 11:04] VITALS: BP 125/76; O2SAT 98
== END ==
LOC: M IRPRO 09:52
PROVIDERS: ATTEND Internal Medicine Gastroenterology
DX: R18.8 Other ascites (principal)
CPT/HCPCS: 49083; 51701; 96365; G0463; P9047

== ENCOUNTER → 2022-11-23 | Outpatient (CLI) | payer MEDICARE ==
[2022-11-23 11:39] VITALS: BP 125/73
[2022-11-23 11:45] VITALS: BP 131/78
[2022-11-23 11:49] VITALS: BP 126/78
[2022-11-23 11:52] VITALS: BP 134/81
== END ==
LOC: M IRPRO 09:44
PROVIDERS: ATTEND Internal Medicine Gastroenterology
DX: R18.8 Other ascites (principal)
CPT/HCPCS: 49083; 96365; P9047

== ENCOUNTER → 2022-12-14 | Outpatient (CLI) | payer MEDICARE, OTHER | LOC: M IRPRO 10:06 | PROVIDERS: ATTEND Internal Medicine Gastroenterology | DX: R18.8 Other ascites (principal) ==

== ENCOUNTER → 2023-01-16 | Outpatient (REF) | payer MEDICARE, MEDICAID | LOC: M SMT 17:21 | PROVIDERS: ATTEND Urology | DX: N30.00 Acute cystitis without hematuria (principal) ==

== ENCOUNTER → 2023-01-25 | Outpatient (CLI) | payer MEDICARE, OTHER ==
[2023-01-25 15:39] VITALS: BP 117/62; O2SAT 97
[2023-01-25 15:54] VITALS: BP 115/61; TEMP 99; O2SAT 98
[2023-01-25 15:58] VITALS: BP 115/64; TEMP 98.9; O2SAT 97
[2023-01-25 16:05] VITALS: BP 110/63; TEMP 98.6; O2SAT 98
[2023-01-25 16:10] VITALS: BP 112/82; O2SAT 97
[2023-01-25 16:15] VITALS: BP 112/82; O2SAT 98
== END ==
LOC: M IRPRO 14:35
PROVIDERS: ATTEND Internal Medicine Gastroenterology
DX: R18.8 Other ascites (principal)
CPT/HCPCS: 49083; 96365; P9047

== ENCOUNTER → 2023-02-28 | Outpatient (CLI) | payer MEDICARE, OTHER ==
[2023-02-28 10:48] VITALS: TEMP 99.3
[2023-02-28 11:16] VITALS: BP 105/72; O2SAT 96
[2023-02-28 11:21] VITALS: BP 128/81; O2SAT 97
[2023-02-28 11:36] VITALS: BP 113/67; O2SAT 98
[2023-02-28 11:44] VITALS: BP 141/87; O2SAT 97
[2023-02-28 12:09] LABS: INR 1.2; PROTHROMBIN TIME 14.9 SECONDS (12.5-14.5)
[2023-02-28 12:10] LABS: HEMATOCRIT 37.4 % (42.0-52.0); HEMOGLOBIN 12.7 g/dl (13.5-17.5); MEAN CORPUSCULAR HEMOGLOBIN 30.8 pg (27.0-33.0); MEAN CORPUSCULAR VOLUME 90.8 fl (80.0-96.0); RED BLOOD COUNT 4.12 10^6/uL (4.30-6.10); WHITE BLOOD COUNT 4.7 10^3/uL (4.0-10.0)
[2023-02-28 12:11] LABS: PLATELET COUNT, AUTOMATED 67 10^3/uL (150-450)
== END ==
LOC: M IRPRO 10:40
PROVIDERS: ATTEND Internal Medicine Gastroenterology
DX: R18.8 Other ascites (principal)
CPT/HCPCS: 49083; 85027; 85049; 85055; 85610; 96365; P9047

== ENCOUNTER → 2023-04-16 | Outpatient (CLI) | payer MEDICARE, MEDICAID ==
[~2023-04-16] MED LIST changes: +ASPI-161 PO; +GASTROGRAFIN SOLUTION 30ML As Ordered ONE; +ISOVUE-370 76% 100ML VIAL As Ordered ONE; +OXYB5TAB11 PO
== END ==
LOC: M RAD 12:07
PROVIDERS: ATTEND Internal Medicine Gastroenterology
DX: K70.31 Alcoholic cirrhosis of liver with ascites (principal)
CPT/HCPCS: 74160; Q9963; Q9967

== ENCOUNTER 2023-04-17 16:07 | Inpatient (IN) | payer MEDICARE, MEDICAID ==
[~2023-04-17] VITALS: Ht 190.5 cm; Wt 104.6 kg
[~2023-04-17 16:07] MED LIST changes: -ASPI-161 PO; -GASTROGRAFIN SOLUTION 30ML As Ordered ONE; -ISOVUE-370 76% 100ML VIAL As Ordered ONE; -OXYB5TAB11 PO
[2023-04-17 18:04] LABS: BASO % 0.2 % (0.0-1.0); EOS % 0.1 % (0.0-3.0); HEMATOCRIT 41.6 % (42.0-52.0); HEMOGLOBIN 14.7 g/dl (13.5-17.5); LYMPH # 0.6 10^3/uL (1.5-5.0); LYMPH % 5.7 % (24.0-44.0); MEAN CORPUSCULAR HEMOGLOBIN 31.1 pg (27.0-33.0); MEAN CORPUSCULAR HGB CONC 35.3 g/dl (32.0-36.5); MEAN CORPUSCULAR VOLUME 88.1 fl (80.0-96.0); MONO # 0.8 10^3/uL (0.0-0.8); MONO % 7.4 % (2.0-8.0); NEUTROPHILS % 86.4 % (36.0-66.0); PLATELET COUNT, AUTOMATED 108 10^3/uL (150-450); RED BLOOD COUNT 4.72 10^6/uL (4.30-6.10); WHITE BLOOD COUNT 10.5 10^3/uL (4.0-10.0)
[2023-04-17 18:23] LABS: LIPASE 27 U/L (12-53)
[2023-04-17 18:24] LABS: INR 1.22
[2023-04-17 18:25] LABS: ALBUMIN 3.4 G/DL (3.2-5.2); ALKALINE PHOSPHATASE 118 U/L (46-116); ALT/SGPT 29 U/L (7.0-40); AST/SGOT 37 U/L (<34); BILIRUBIN,DIRECT 1.4 MG/DL (<0.4); BILIRUBIN,TOTAL 3.1 MG/DL (0.3-1.2); BLOOD UREA NITROGEN 22 MG/DL (9-23); CALCIUM LEVEL 8.8 MG/DL (8.3-10.6); CARBON DIOXIDE LEVEL 27 MMOL/L (20-31); CHLORIDE LEVEL 106 MMOL/L (98-107); CREATININE FOR GFR 1.03 MG/DL (0.70-1.30); GLOMERULAR FILTRATION RATE > 60.0 (>49); GLUCOSE, FASTING 130 MG/DL (74-106); PARTIAL THROMBOPLASTIN TIME 29.9 SECONDS (24.8-34.2); POTASSIUM SERUM 4.6 MMOL/L (3.5-5.1); SODIUM LEVEL 140 MMOL/L (136-145); TOTAL PROTEIN 6.8 G/DL (5.7-8.2)
[2023-04-17] MEDS ORDERED: MIDAZOLAM INJ 2MG/2ML VIAL As Ordered ONE (18:43)
[2023-04-17] MEDS ORDERED: fentaNYL 100 MCG/2 ML INJECTION As Ordered ONE ×3 (18:43→21:00)
[2023-04-17] MEDS ORDERED: SUCCINYLCHOLINE 100MG/5ML SYRINGE As Ordered ONE (18:49)
[2023-04-17] MEDS ORDERED: propofoL 200 MG/20 ML VIAL As Ordered ONE (18:49)
[2023-04-17] MEDS ORDERED: LIDOCAINE 2% 100MG/5ML SDV (FOR ANES.) As Ordered ONE (18:49)
[2023-04-17] MEDS ORDERED: ROCURONIUM BROMIDE 50MG/5ML VIAL As Ordered ONE (18:49)
[2023-04-17 18:50] LABS: RSV AMPLIFICATION NEGATIVE (NEGATIVE)
[2023-04-17] MEDS ORDERED: ACETAMINOPHEN 1000MG 100ML IV BAG As Ordered ONE (18:50)
[2023-04-17] MEDS ORDERED: KETOROLAC 60MG 2ML VIAL As Ordered ONE (18:50)
[2023-04-17] MEDS ORDERED: ONDANSETRON 4MG 2ML VIAL As Ordered ONE (18:50)
[2023-04-17] MEDS ORDERED: ONDANSETRON 4MG 2ML VIAL IV ONE (18:55)
[2023-04-17] MEDS ORDERED: LIDOCAINE 1% SDV 30ML VIAL As Ordered ONE (18:57)
[2023-04-17] MEDS ORDERED: LR 1,000 ML IV SCH (19:10)
[2023-04-17] MEDS ORDERED: ZOSYN 3.375GM VIAL As Ordered ONE (20:07)
[2023-04-17] MEDS ORDERED: MED REC IN PROGRESS XX SCH (20:45)
[2023-04-17] MEDS ORDERED: SUGAMMADEX SODIUM 500 MG/5 ML VIAL (BRIDION) As Ordered ONE (21:09)
[2023-04-17] MEDS ORDERED: oxyCODONE 5MG TAB PO PRN (21:15)
[2023-04-17] MEDS ORDERED: fentaNYL 100 MCG/2 ML INJECTION IV PRN (21:15)
[2023-04-17] MEDS ORDERED: ONDANSETRON 4MG 2ML VIAL IV PRN ×2 (21:15→21:30)
[2023-04-17] MEDS: HYDROMORPHONE HCL 0.5 MG/ 0.5 ML SYRINGE IV PRN ×2 (21:44→21:51)
[2023-04-17 22:30] VITALS: BP 132/76; TEMP 99.4; O2SAT 97
[2023-04-17] MEDS: LR 1,000 ML IV SCH (22:30)
[2023-04-17 23:00] VITALS: BP 118/67; TEMP 99; O2SAT 95
[2023-04-17] MEDS ORDERED: ASPI-161 PO (23:00)
[2023-04-17] MEDS ORDERED: OXYB5TAB11 PO (23:01)
[2023-04-17] MEDS ORDERED: HOME MED LIST COMPLETE! XX SCH (23:05)
[2023-04-17 23:30] VITALS: BP 113/62; TEMP 99; O2SAT 97
[2023-04-18] VITALS (10 sets, daily range): BP systolic 96–154; BP diastolic 61–83; TEMP 97.8–99.5; O2SAT 96–100
[2023-04-18] MEDS: PIPERACILLIN/TAZOBACTAM SOD 3.375 GM in D5W MINI-BAG PLUS 50 ML IV SCH ×4 (01:00→20:48)
[2023-04-18] MEDS: LR 1,000 ML IV SCH ×4 (01:00→21:52)
[2023-04-18] MEDS: KETOROLAC 30 MG/ML 1ML VIAL IV SCH ×4 (01:02→20:50)
[2023-04-18 05:07] LABS: BASO % 0.2 % (0.0-1.0); HEMOGLOBIN 13.6 g/dl (13.5-17.5); LYMPH # 0.4 10^3/uL (1.5-5.0); LYMPH % 7.5 % (24.0-44.0); MEAN CORPUSCULAR HEMOGLOBIN 31.1 pg (27.0-33.0); MEAN CORPUSCULAR HGB CONC 34.9 g/dl (32.0-36.5); MEAN CORPUSCULAR VOLUME 89.2 fl (80.0-96.0); MONO # 0.6 10^3/uL (0.0-0.8); MONO % 11.1 % (2.0-8.0); NEUTROPHILS # 4.2 10^3/uL (1.5-8.5); RED BLOOD COUNT 4.37 10^6/uL (4.30-6.10); WHITE BLOOD COUNT 5.2 10^3/uL (4.0-10.0)
[2023-04-18 05:25] LABS: PLATELET COUNT, AUTOMATED 69 10^3/uL (150-450)
[2023-04-18 05:28] LABS: ALKALINE PHOSPHATASE 96 U/L (46-116); ALT/SGPT 25 U/L (7.0-40); AST/SGOT 34 U/L (<34); BILIRUBIN,TOTAL 2.9 MG/DL (0.3-1.2); BLOOD UREA NITROGEN 30 MG/DL (9-23); CALCIUM LEVEL 8.2 MG/DL (8.3-10.6); CARBON DIOXIDE LEVEL 25 MMOL/L (20-31); CHLORIDE LEVEL 107 MMOL/L (98-107); GLOMERULAR FILTRATION RATE > 60.0 (>49); GLUCOSE, FASTING 137 MG/DL (74-106); POTASSIUM SERUM 4.9 MMOL/L (3.5-5.1); SODIUM LEVEL 140 MMOL/L (136-145)
[2023-04-18] MEDS: PERCOCET 5MG/325MG TAB PO PRN (06:20)
[2023-04-18] MEDS ORDERED: ALBUTEROL 90 MCG/ACT 8GM HFA INHALER INH PRN (07:40)
[2023-04-18] MEDS: oxyBUTYnin 5 MG TAB PO SCH ×2 (08:54→20:52)
[2023-04-18] MEDS: SENOKOT S TAB PO SCH ×2 (08:54→20:52)
[2023-04-18] MEDS: rifAXIMin 550 MG TAB (XIFAXAN) PO SCH ×2 (08:54→20:52)
[2023-04-18] MEDS: PANTOPRAZOLE 40MG VIAL IV SCH (08:54)
[2023-04-18] MEDS: atenoloL 50 MG TAB PO SCH ×2 (08:56→20:52)
[2023-04-18] MEDS: ENOXAPARIN 30MG/0.3ML SYRINGE (J1650 PER 10MG) SC SCH (10:15)
[2023-04-18] MEDS: METOCLOPRAMIDE INJ 10MG/2ML VIAL IV PRN (12:59)
[2023-04-19] VITALS: BP 128/73; TEMP 98.4; O2SAT 97
[2023-04-19] MEDS: PIPERACILLIN/TAZOBACTAM SOD 3.375 GM in D5W MINI-BAG PLUS 50 ML IV SCH ×4 (02:38→20:18)
[2023-04-19] MEDS: KETOROLAC 30 MG/ML 1ML VIAL IV SCH ×4 (02:39→20:17)
[2023-04-19 04:00] VITALS: BP 127/77; TEMP 98.4; O2SAT 98
[2023-04-19] MEDS: LR 1,000 ML IV SCH ×3 (05:32→22:41)
[2023-04-19 07:48] LABS: EOS # 0.1 10^3/uL (0.0-0.5); EOS % 2.4 % (0.0-3.0); LYMPH # 0.7 10^3/uL (1.5-5.0); LYMPH % 25.6 % (24.0-44.0); MEAN CORPUSCULAR HEMOGLOBIN 31.1 pg (27.0-33.0); MEAN CORPUSCULAR HGB CONC 34.2 g/dl (32.0-36.5); MEAN CORPUSCULAR VOLUME 90.9 fl (80.0-96.0); MONO # 0.5 10^3/uL (0.0-0.8); MONO % 17.3 % (2.0-8.0); NEUTROPHILS # 1.6 10^3/uL (1.5-8.5); NEUTROPHILS % 53.7 % (36.0-66.0); RED BLOOD COUNT 4.18 10^6/uL (4.30-6.10); WHITE BLOOD COUNT 2.9 10^3/uL (4.0-10.0)
[2023-04-19 08:08] LABS: ALBUMIN 2.6 G/DL (3.2-5.2); BILIRUBIN,TOTAL 1.9 MG/DL (0.3-1.2); CALCIUM LEVEL 7.6 MG/DL (8.3-10.6); CREATININE FOR GFR 1.29 MG/DL (0.70-1.30); GLOMERULAR FILTRATION RATE 59.1 (>49); MAGNESIUM LEVEL 1.9 MG/DL (1.8-2.4); POTASSIUM SERUM 4.1 MMOL/L (3.5-5.1); TOTAL PROTEIN 5.3 G/DL (5.7-8.2)
[2023-04-19 08:09] LABS: PLATELET COUNT, AUTOMATED 52 10^3/uL (150-450)
[2023-04-19] MEDS ORDERED: MORPHINE 10 MG/ML 1ML VIAL IV ONE (08:55)
[2023-04-19] MEDS: METOCLOPRAMIDE INJ 10MG/2ML VIAL IV PRN (09:18)
[2023-04-19] MEDS: PANTOPRAZOLE 40MG VIAL IV SCH (09:39)
[2023-04-19] MEDS: SENOKOT S TAB PO SCH ×2 (09:40→20:16)
[2023-04-19] MEDS: atenoloL 50 MG TAB PO SCH ×2 (09:40→20:16)
[2023-04-19] MEDS: ENOXAPARIN 30MG/0.3ML SYRINGE (J1650 PER 10MG) SC SCH (09:40)
[2023-04-19] MEDS: rifAXIMin 550 MG TAB (XIFAXAN) PO SCH ×2 (09:40→20:15)
[2023-04-19] MEDS: oxyBUTYnin 5 MG TAB PO SCH ×2 (09:40→20:16)
[2023-04-19] MEDS ORDERED: amLODIPine 5 MG TAB PO ONE (10:00)
[2023-04-19 12:09] VITALS: BP 129/77
[2023-04-19] MEDS: LACTULOSE 20GM/30ML SYRUP UDC PO SCH ×3 (12:30→20:15)
[2023-04-19] MEDS: ONDANSETRON 4MG 2ML VIAL IV PRN ×2 (13:42→20:18)
[2023-04-19] MEDS: PERCOCET 5MG/325MG TAB PO PRN ×2 (18:11→23:27)
[2023-04-19 18:12] VITALS: BP 133/77; TEMP 98.8; O2SAT 97
[2023-04-19 20:00] VITALS: BP 153/57; TEMP 98.3; O2SAT 97
[2023-04-19] MEDS: zolPIDEM TARTRATE 5 MG TAB PO SCH (20:18)
[2023-04-20] VITALS: BP 131/84; TEMP 98.3; O2SAT 97
[2023-04-20] MEDS: KETOROLAC 30 MG/ML 1ML VIAL IV SCH ×4 (03:00→19:48)
[2023-04-20] MEDS: PIPERACILLIN/TAZOBACTAM SOD 3.375 GM in D5W MINI-BAG PLUS 50 ML IV SCH ×4 (03:00→19:49)
[2023-04-20 04:00] VITALS: BP 145/81; TEMP 98.3; O2SAT 95
[2023-04-20 05:07] LABS: BASO % 0.7 % (0.0-1.0); EOS # 0.1 10^3/uL (0.0-0.5); EOS % 2.7 % (0.0-3.0); HEMATOCRIT 39.6 % (42.0-52.0); HEMOGLOBIN 13.6 g/dl (13.5-17.5); LYMPH # 0.7 10^3/uL (1.5-5.0); LYMPH % 17.7 % (24.0-44.0); MEAN CORPUSCULAR HEMOGLOBIN 31.1 pg (27.0-33.0); MEAN CORPUSCULAR HGB CONC 34.3 g/dl (32.0-36.5); MEAN CORPUSCULAR VOLUME 90.4 fl (80.0-96.0); MONO # 0.5 10^3/uL (0.0-0.8); MONO % 13.1 % (2.0-8.0); NEUTROPHILS # 2.7 10^3/uL (1.5-8.5); NEUTROPHILS % 65.8 % (36.0-66.0); RED BLOOD COUNT 4.38 10^6/uL (4.30-6.10); WHITE BLOOD COUNT 4.1 10^3/uL (4.0-10.0)
[2023-04-20 05:24] LABS: PLATELET COUNT, AUTOMATED 61 10^3/uL (150-450)
[2023-04-20] MEDS: ONDANSETRON 4MG 2ML VIAL IV PRN (05:26)
[2023-04-20 05:37] LABS: ALBUMIN 2.6 G/DL (3.2-5.2); BILIRUBIN,TOTAL 2.1 MG/DL (0.3-1.2); CALCIUM LEVEL 8.1 MG/DL (8.3-10.6); CREATININE FOR GFR 1.43 MG/DL (0.70-1.30); GLOMERULAR FILTRATION RATE 52.5 (>49); TOTAL PROTEIN 5.5 G/DL (5.7-8.2)
[2023-04-20] MEDS: LR 1,000 ML IV SCH ×3 (06:44→21:20)
[2023-04-20 08:15] VITALS: BP 154/85; TEMP 98.3; O2SAT 95
[2023-04-20] MEDS: METOCLOPRAMIDE INJ 10MG/2ML VIAL IV PRN (09:07)
[2023-04-20] MEDS: ENOXAPARIN 30MG/0.3ML SYRINGE (J1650 PER 10MG) SC SCH (09:09)
[2023-04-20] MEDS: PANTOPRAZOLE 40MG VIAL IV SCH (11:12)
[2023-04-20 11:40] VITALS: BP 157/77; TEMP 98; O2SAT 98
[2023-04-20] MEDS: LACTULOSE 20GM/30ML SYRUP UDC PO SCH ×3 (13:20→21:00)
[2023-04-20] MEDS: atenoloL 50 MG TAB PO SCH ×2 (13:21→21:19)
[2023-04-20] MEDS: SENOKOT S TAB PO SCH ×2 (13:21→21:19)
[2023-04-20] MEDS: oxyBUTYnin 5 MG TAB PO SCH ×2 (13:21→21:19)
[2023-04-20] MEDS: rifAXIMin 550 MG TAB (XIFAXAN) PO SCH ×2 (13:21→21:16)
[2023-04-20] MEDS ORDERED: ASPIRIN 81MG CHEW TABLET PO ONE (14:40)
[2023-04-20 15:07] VITALS: BP 138/72; TEMP 98.3; O2SAT 97
[2023-04-20 19:54] VITALS: BP 137/80; TEMP 98.2; O2SAT 98
[2023-04-20] MEDS: zolPIDEM TARTRATE 5 MG TAB PO SCH (21:19)
[2023-04-21] VITALS (7 sets, daily range): BP systolic 137–158; BP diastolic 78–89; TEMP 97.4–98.9; O2SAT 96–98
[2023-04-21] MEDS: PIPERACILLIN/TAZOBACTAM SOD 3.375 GM in D5W MINI-BAG PLUS 50 ML IV SCH ×4 (03:17→19:36)
[2023-04-21] MEDS: KETOROLAC 30 MG/ML 1ML VIAL IV SCH ×4 (03:17→19:36)
[2023-04-21 04:26] LABS: BASO % 0.8 % (0.0-1.0); EOS # 0.2 10^3/uL (0.0-0.5); EOS % 4.7 % (0.0-3.0); HEMATOCRIT 37.3 % (42.0-52.0); HEMOGLOBIN 13.1 g/dl (13.5-17.5); LYMPH # 0.8 10^3/uL (1.5-5.0); LYMPH % 20.9 % (24.0-44.0); MEAN CORPUSCULAR HEMOGLOBIN 31.3 pg (27.0-33.0); MEAN CORPUSCULAR HGB CONC 35.1 g/dl (32.0-36.5); MONO # 0.4 10^3/uL (0.0-0.8); MONO % 9.9 % (2.0-8.0); NEUTROPHILS # 2.4 10^3/uL (1.5-8.5); NEUTROPHILS % 63.4 % (36.0-66.0); RED BLOOD COUNT 4.19 10^6/uL (4.30-6.10); WHITE BLOOD COUNT 3.8 10^3/uL (4.0-10.0)
[2023-04-21 04:29] LABS: PLATELET COUNT, AUTOMATED 59 10^3/uL (150-450)
[2023-04-21] MEDS: LR 1,000 ML IV SCH ×3 (04:41→20:02)
[2023-04-21 04:54] LABS: ALBUMIN 2.5 G/DL (3.2-5.2); BILIRUBIN,TOTAL 1.9 MG/DL (0.3-1.2); CALCIUM LEVEL 7.7 MG/DL (8.3-10.6); CREATININE FOR GFR 1.33 MG/DL (0.70-1.30); GLOMERULAR FILTRATION RATE 57.1 (>49); POTASSIUM SERUM 3.7 MMOL/L (3.5-5.1)
[2023-04-21] MEDS: atenoloL 50 MG TAB PO SCH ×2 (09:00→21:16)
[2023-04-21] MEDS: PANTOPRAZOLE 40MG VIAL IV SCH (09:30)
[2023-04-21] MEDS: ENOXAPARIN 30MG/0.3ML SYRINGE (J1650 PER 10MG) SC SCH (09:30)
[2023-04-21] MEDS: SENOKOT S TAB PO SCH ×2 (09:31→21:16)
[2023-04-21] MEDS: rifAXIMin 550 MG TAB (XIFAXAN) PO SCH ×2 (09:31→21:16)
[2023-04-21] MEDS: LACTULOSE 20GM/30ML SYRUP UDC PO SCH ×3 (09:31→21:00)
[2023-04-21] MEDS: oxyBUTYnin 5 MG TAB PO SCH ×2 (09:32→21:16)
[2023-04-21] MEDS: PERCOCET 5MG/325MG TAB PO PRN (09:34)
[2023-04-21] MEDS: SPIRONOLACTONE 50 MG TAB PO SCH ×3 (11:39→21:17)
[2023-04-21] MEDS: zolPIDEM TARTRATE 5 MG TAB PO SCH (21:17)
[2023-04-22] MEDS: PIPERACILLIN/TAZOBACTAM SOD 3.375 GM in D5W MINI-BAG PLUS 50 ML IV SCH ×4 (03:28→20:49)
[2023-04-22] MEDS: LR 1,000 ML IV SCH (03:28)
[2023-04-22] MEDS: KETOROLAC 30 MG/ML 1ML VIAL IV SCH ×4 (03:29→20:48)
[2023-04-22 04:38] VITALS: BP 124/72; TEMP 97.9; O2SAT 97
[2023-04-22 07:45] LABS: BASO % 0.6 % (0.0-1.0); EOS # 0.3 10^3/uL (0.0-0.5); EOS % 4.3 % (0.0-3.0); HEMATOCRIT 39.4 % (42.0-52.0); HEMOGLOBIN 14.1 g/dl (13.5-17.5); LYMPH # 0.8 10^3/uL (1.5-5.0); LYMPH % 13.2 % (24.0-44.0); MEAN CORPUSCULAR HEMOGLOBIN 31.5 pg (27.0-33.0); MEAN CORPUSCULAR HGB CONC 35.8 g/dl (32.0-36.5); MEAN CORPUSCULAR VOLUME 87.9 fl (80.0-96.0); MONO # 0.7 10^3/uL (0.0-0.8); MONO % 10.8 % (2.0-8.0); NEUTROPHILS # 4.4 10^3/uL (1.5-8.5); NEUTROPHILS % 70.6 % (36.0-66.0); RED BLOOD COUNT 4.48 10^6/uL (4.30-6.10); WHITE BLOOD COUNT 6.3 10^3/uL (4.0-10.0)
[2023-04-22 07:50] LABS: PLATELET COUNT, AUTOMATED 77 10^3/uL (150-450)
[2023-04-22] MEDS: SPIRONOLACTONE 50 MG TAB PO SCH ×3 (07:52→20:47)
[2023-04-22] MEDS: LACTULOSE 20GM/30ML SYRUP UDC PO SCH ×3 (07:52→21:00)
[2023-04-22] MEDS: rifAXIMin 550 MG TAB (XIFAXAN) PO SCH ×2 (07:53→20:47)
[2023-04-22] MEDS: atenoloL 50 MG TAB PO SCH ×2 (07:53→20:47)
[2023-04-22] MEDS: oxyBUTYnin 5 MG TAB PO SCH ×2 (07:53→20:47)
[2023-04-22] MEDS: ENOXAPARIN 30MG/0.3ML SYRINGE (J1650 PER 10MG) SC SCH (07:54)
[2023-04-22] MEDS: PANTOPRAZOLE 40MG VIAL IV SCH (07:54)
[2023-04-22 08:16] LABS: ALBUMIN 2.7 G/DL (3.2-5.2); ALKALINE PHOSPHATASE 88 U/L (46-116); ALT/SGPT 32 U/L (7.0-40); AST/SGOT 38 U/L (<34); BILIRUBIN,TOTAL 2.1 MG/DL (0.3-1.2); BLOOD UREA NITROGEN 27 MG/DL (9-23); CARBON DIOXIDE LEVEL 25 MMOL/L (20-31); CHLORIDE LEVEL 106 MMOL/L (98-107); CREATININE FOR GFR 1.18 MG/DL (0.70-1.30); GLOMERULAR FILTRATION RATE > 60.0 (>49); GLUCOSE, FASTING 104 MG/DL (74-106); POTASSIUM SERUM 3.7 MMOL/L (3.5-5.1); SODIUM LEVEL 140 MMOL/L (136-145); TOTAL PROTEIN 5.4 G/DL (5.7-8.2)
[2023-04-22 08:30] VITALS: BP 119/74; TEMP 98.2; O2SAT 96
[2023-04-22 15:36] VITALS: BP 134/88; TEMP 98.8; O2SAT 95
[2023-04-22] MEDS: zolPIDEM TARTRATE 5 MG TAB PO SCH (20:46)
[2023-04-22 22:00] VITALS: BP 128/90; TEMP 98.6; O2SAT 96
[2023-04-22] MEDS: PERCOCET 5MG/325MG TAB PO PRN (23:56)
[2023-04-23] MEDS: PIPERACILLIN/TAZOBACTAM SOD 3.375 GM in D5W MINI-BAG PLUS 50 ML IV SCH (01:55)
[2023-04-23 05:06] LABS: BASO % 0.7 % (0.0-1.0); EOS # 0.2 10^3/uL (0.0-0.5); EOS % 4.3 % (0.0-3.0); HEMATOCRIT 36.6 % (42.0-52.0); HEMOGLOBIN 12.8 g/dl (13.5-17.5); LYMPH # 0.9 10^3/uL (1.5-5.0); LYMPH % 16.7 % (24.0-44.0); MEAN CORPUSCULAR HEMOGLOBIN 30.9 pg (27.0-33.0); MEAN CORPUSCULAR VOLUME 88.4 fl (80.0-96.0); MONO # 0.6 10^3/uL (0.0-0.8); MONO % 11.7 % (2.0-8.0); NEUTROPHILS # 3.6 10^3/uL (1.5-8.5); RED BLOOD COUNT 4.14 10^6/uL (4.30-6.10); WHITE BLOOD COUNT 5.4 10^3/uL (4.0-10.0)
[2023-04-23 05:09] LABS: PLATELET COUNT, AUTOMATED 73 10^3/uL (150-450)
[2023-04-23 05:31] LABS: ALBUMIN 2.6 G/DL (3.2-5.2); BILIRUBIN,TOTAL 1.7 MG/DL (0.3-1.2); CREATININE FOR GFR 1.29 MG/DL (0.70-1.30); GLOMERULAR FILTRATION RATE 59.1 (>49); POTASSIUM SERUM 3.8 MMOL/L (3.5-5.1)
[2023-04-23 06:00] VITALS: BP 114/76; TEMP 98.4; O2SAT 94
[2023-04-23 08:21] VITALS: BP 133/80; TEMP 98.3; O2SAT 96
[2023-04-23] MEDS: ENOXAPARIN 30MG/0.3ML SYRINGE (J1650 PER 10MG) SC SCH (10:04)
[2023-04-23] MEDS: LACTULOSE 20GM/30ML SYRUP UDC PO SCH ×3 (10:04→20:45)
[2023-04-23] MEDS: oxyBUTYnin 5 MG TAB PO SCH ×2 (10:05→20:45)
[2023-04-23] MEDS: atenoloL 50 MG TAB PO SCH ×2 (10:05→20:39)
[2023-04-23] MEDS: FUROSEMIDE 40 MG TAB PO SCH (10:05)
[2023-04-23] MEDS: rifAXIMin 550 MG TAB (XIFAXAN) PO SCH ×2 (10:05→20:45)
[2023-04-23] MEDS: PANTOPRAZOLE 40MG TAB (PROTONIX) PO SCH (10:06)
[2023-04-23] MEDS: SPIRONOLACTONE 50 MG TAB PO SCH (10:06)
[2023-04-23] MEDS: PERCOCET 5MG/325MG TAB PO PRN ×3 (10:17→21:01)
[2023-04-23 11:59] VITALS: BP 125/67; TEMP 98.2; O2SAT 98
[2023-04-23 16:00] VITALS: BP 132/94; TEMP 98.2; O2SAT 95
[2023-04-23 17:08] VITALS: BP 133/77
[2023-04-23 20:34] VITALS: BP 118/85; TEMP 98.1; O2SAT 99
[2023-04-23] MEDS: zolPIDEM TARTRATE 5 MG TAB PO SCH (20:46)
[2023-04-23] MEDS: METOCLOPRAMIDE INJ 10MG/2ML VIAL IV PRN (21:01)
[2023-04-24 06:00] VITALS: BP 113/73; TEMP 98.2; O2SAT 98
[2023-04-24 07:07] LABS: BASO # 0.1 10^3/uL (0.0-0.2); BASO % 0.9 % (0.0-1.0); EOS # 0.3 10^3/uL (0.0-0.5); EOS % 4.4 % (0.0-3.0); HEMATOCRIT 36.6 % (42.0-52.0); HEMOGLOBIN 13.1 g/dl (13.5-17.5); LYMPH # 0.9 10^3/uL (1.5-5.0); LYMPH % 16.7 % (24.0-44.0); MEAN CORPUSCULAR HEMOGLOBIN 31.5 pg (27.0-33.0); MEAN CORPUSCULAR HGB CONC 35.8 g/dl (32.0-36.5); MONO # 0.7 10^3/uL (0.0-0.8); NEUTROPHILS # 3.6 10^3/uL (1.5-8.5); NEUTROPHILS % 64.5 % (36.0-66.0); RED BLOOD COUNT 4.16 10^6/uL (4.30-6.10); WHITE BLOOD COUNT 5.6 10^3/uL (4.0-10.0)
[2023-04-24 07:10] LABS: PLATELET COUNT, AUTOMATED 75 10^3/uL (150-450)
[2023-04-24 07:39] LABS: ALBUMIN 2.5 G/DL (3.2-5.2); ALKALINE PHOSPHATASE 104 U/L (46-116); ALT/SGPT 38 U/L (7.0-40); AST/SGOT 47 U/L (<34); BILIRUBIN,TOTAL 1.6 MG/DL (0.3-1.2); BLOOD UREA NITROGEN 19 MG/DL (9-23); CALCIUM LEVEL 7.9 MG/DL (8.3-10.6); CARBON DIOXIDE LEVEL 28 MMOL/L (20-31); CHLORIDE LEVEL 106 MMOL/L (98-107); GLOMERULAR FILTRATION RATE > 60.0 (>49); GLUCOSE, FASTING 86 MG/DL (74-106); POTASSIUM SERUM 3.9 MMOL/L (3.5-5.1); SODIUM LEVEL 140 MMOL/L (136-145)
[2023-04-24] MEDS: rifAXIMin 550 MG TAB (XIFAXAN) PO SCH ×2 (08:44→20:51)
[2023-04-24] MEDS: FUROSEMIDE 40 MG TAB PO SCH (08:45)
[2023-04-24] MEDS: SPIRONOLACTONE 50 MG TAB PO SCH (08:45)
[2023-04-24] MEDS: atenoloL 50 MG TAB PO SCH ×2 (08:48→20:51)
[2023-04-24] MEDS: PANTOPRAZOLE 40MG TAB (PROTONIX) PO SCH (08:49)
[2023-04-24] MEDS: ENOXAPARIN 30MG/0.3ML SYRINGE (J1650 PER 10MG) SC SCH ×2 (08:49→08:50)
[2023-04-24] MEDS: LACTULOSE 20GM/30ML SYRUP UDC PO SCH ×3 (08:49→20:51)
[2023-04-24] MEDS: PERCOCET 5MG/325MG TAB PO PRN ×2 (08:50→21:00)
[2023-04-24] MEDS: oxyBUTYnin 5 MG TAB PO SCH ×2 (08:50→20:50)
[2023-04-24 14:45] VITALS: BP 118/79; TEMP 98.4; O2SAT 99
[2023-04-24] MEDS: zolPIDEM TARTRATE 5 MG TAB PO SCH (20:50)
[2023-04-24 20:53] VITALS: BP 124/79; TEMP 98.2; O2SAT 99
[2023-04-24] MEDS: METOCLOPRAMIDE INJ 10MG/2ML VIAL IV PRN (21:00)
[2023-04-25 05:41] VITALS: BP 118/75; TEMP 98.6; O2SAT 98
[2023-04-25 06:21] LABS: BASO % 0.6 % (0.0-1.0); EOS # 0.2 10^3/uL (0.0-0.5); EOS % 3.7 % (0.0-3.0); HEMATOCRIT 37.8 % (42.0-52.0); HEMOGLOBIN 13.1 g/dl (13.5-17.5); LYMPH # 0.9 10^3/uL (1.5-5.0); LYMPH % 14.1 % (24.0-44.0); MEAN CORPUSCULAR HEMOGLOBIN 30.5 pg (27.0-33.0); MEAN CORPUSCULAR HGB CONC 34.7 g/dl (32.0-36.5); MEAN CORPUSCULAR VOLUME 88.1 fl (80.0-96.0); MONO # 0.8 10^3/uL (0.0-0.8); MONO % 12.7 % (2.0-8.0); NEUTROPHILS # 4.2 10^3/uL (1.5-8.5); NEUTROPHILS % 68.3 % (36.0-66.0); RED BLOOD COUNT 4.29 10^6/uL (4.30-6.10); WHITE BLOOD COUNT 6.2 10^3/uL (4.0-10.0)
[2023-04-25 06:26] LABS: PLATELET COUNT, AUTOMATED 87 10^3/uL (150-450)
[2023-04-25 06:49] LABS: ALBUMIN 2.5 G/DL (3.2-5.2); ALKALINE PHOSPHATASE 131 U/L (46-116); ALT/SGPT 41 U/L (7.0-40); AST/SGOT 45 U/L (<34); BILIRUBIN,TOTAL 1.4 MG/DL (0.3-1.2); BLOOD UREA NITROGEN 22 MG/DL (9-23); CALCIUM LEVEL 8.1 MG/DL (8.3-10.6); CARBON DIOXIDE LEVEL 28 MMOL/L (20-31); CHLORIDE LEVEL 107 MMOL/L (98-107); CREATININE FOR GFR 1.19 MG/DL (0.70-1.30); GLOMERULAR FILTRATION RATE > 60.0 (>49); GLUCOSE, FASTING 98 MG/DL (74-106); POTASSIUM SERUM 4.5 MMOL/L (3.5-5.1); SODIUM LEVEL 141 MMOL/L (136-145); TOTAL PROTEIN 5.1 G/DL (5.7-8.2)
[2023-04-25] MEDS: LACTULOSE 20GM/30ML SYRUP UDC PO SCH ×3 (09:00→21:00)
[2023-04-25] MEDS ORDERED: ENOXAPARIN 30MG/0.3ML SYRINGE (J1650 PER 10MG) SC SCH (09:00)
[2023-04-25] MEDS: ENOXAPARIN 40MG/0.4ML SYRINGE (J1650 PER 10MG) SC SCH (09:00)
[2023-04-25] MEDS: atenoloL 50 MG TAB PO SCH ×2 (09:17→21:00)
[2023-04-25] MEDS: rifAXIMin 550 MG TAB (XIFAXAN) PO SCH ×2 (09:17→22:55)
[2023-04-25] MEDS: PANTOPRAZOLE 40MG TAB (PROTONIX) PO SCH (09:17)
[2023-04-25] MEDS: FUROSEMIDE 80 MG TAB PO SCH (09:17)
[2023-04-25] MEDS: SPIRONOLACTONE 50 MG TAB PO SCH ×2 (09:18→22:55)
[2023-04-25] MEDS: oxyBUTYnin 5 MG TAB PO SCH ×2 (09:18→22:54)
[2023-04-25 14:00] VITALS: BP 126/75; TEMP 98.2; O2SAT 99
[2023-04-25] MEDS ORDERED: zolPIDEM TARTRATE 5 MG TAB PO PRN (21:00)
[2023-04-25 22:22] VITALS: BP 120/76; TEMP 98.1; O2SAT 99
[2023-04-25] MEDS: PERCOCET 5MG/325MG TAB PO PRN (23:04)
[2023-04-26 05:59] LABS: BASO # 0.1 10^3/uL (0.0-0.2); BASO % 0.7 % (0.0-1.0); EOS # 0.2 10^3/uL (0.0-0.5); HEMATOCRIT 37.7 % (42.0-52.0); HEMOGLOBIN 13.3 g/dl (13.5-17.5); MEAN CORPUSCULAR HEMOGLOBIN 30.8 pg (27.0-33.0); MEAN CORPUSCULAR HGB CONC 35.3 g/dl (32.0-36.5); MEAN CORPUSCULAR VOLUME 87.3 fl (80.0-96.0); MONO # 0.9 10^3/uL (0.0-0.8); MONO % 11.8 % (2.0-8.0); NEUTROPHILS # 5.1 10^3/uL (1.5-8.5); RED BLOOD COUNT 4.32 10^6/uL (4.30-6.10); WHITE BLOOD COUNT 7.4 10^3/uL (4.0-10.0)
[2023-04-26 06:00] LABS: PLATELET COUNT, AUTOMATED 91 10^3/uL (150-450)
[2023-04-26 06:27] LABS: ALBUMIN 2.5 G/DL (3.2-5.2); ALKALINE PHOSPHATASE 134 U/L (46-116); ALT/SGPT 37 U/L (7.0-40); AST/SGOT 37 U/L (<34); BILIRUBIN,TOTAL 1.3 MG/DL (0.3-1.2); BLOOD UREA NITROGEN 27 MG/DL (9-23); CALCIUM LEVEL 8.5 MG/DL (8.3-10.6); CARBON DIOXIDE LEVEL 26 MMOL/L (20-31); CHLORIDE LEVEL 104 MMOL/L (98-107); CREATININE FOR GFR 1.11 MG/DL (0.70-1.30); GLOMERULAR FILTRATION RATE > 60.0 (>49); GLUCOSE, FASTING 127 MG/DL (74-106); POTASSIUM SERUM 4.1 MMOL/L (3.5-5.1); SODIUM LEVEL 138 MMOL/L (136-145); TOTAL PROTEIN 5.1 G/DL (5.7-8.2)
[2023-04-26 06:29] VITALS: BP 110/78; TEMP 98.1; O2SAT 98
[2023-04-26] MEDS: ENOXAPARIN 40MG/0.4ML SYRINGE (J1650 PER 10MG) SC SCH (09:00)
[2023-04-26] MEDS: PERCOCET 5MG/325MG TAB PO PRN ×3 (09:56→22:03)
[2023-04-26] MEDS: FUROSEMIDE 80 MG TAB PO SCH (09:57)
[2023-04-26] MEDS: PANTOPRAZOLE 40MG TAB (PROTONIX) PO SCH (09:59)
[2023-04-26] MEDS: oxyBUTYnin 5 MG TAB PO SCH ×2 (09:59→22:03)
[2023-04-26] MEDS: SPIRONOLACTONE 50 MG TAB PO SCH ×3 (09:59→22:01)
[2023-04-26] MEDS: LACTULOSE 20GM/30ML SYRUP UDC PO SCH ×3 (09:59→21:00)
[2023-04-26] MEDS: atenoloL 50 MG TAB PO SCH ×2 (09:59→21:00)
[2023-04-26] MEDS: rifAXIMin 550 MG TAB (XIFAXAN) PO SCH ×2 (09:59→22:00)
[2023-04-26] MEDS: METOCLOPRAMIDE INJ 10MG/2ML VIAL IV PRN (13:42)
[2023-04-26 14:59] LABS: APPEARANCE, BODY FLUID CLEAR (CLEAR); ASCITES FL COLOR PALE YELLOW (COLORLESS); SOURCE, BODY FLUID ASCITES
[2023-04-26] MEDS: FUROSEMIDE 40 MG TAB PO SCH ×2 (15:40→22:06)
[2023-04-26 21:07] VITALS: BP 111/71; TEMP 99; O2SAT 99
[2023-04-27 06:15] VITALS: BP 125/90; TEMP 97.1; O2SAT 99
[2023-04-27] MEDS: LACTULOSE 20GM/30ML SYRUP UDC PO SCH ×3 (08:18→21:00)
[2023-04-27] MEDS: ENOXAPARIN 40MG/0.4ML SYRINGE (J1650 PER 10MG) SC SCH (09:00)
[2023-04-27] MEDS: rifAXIMin 550 MG TAB (XIFAXAN) PO SCH ×2 (09:25→21:54)
[2023-04-27] MEDS: FUROSEMIDE 40 MG TAB PO SCH ×3 (09:25→21:53)
[2023-04-27] MEDS: oxyBUTYnin 5 MG TAB PO SCH ×2 (09:25→21:52)
[2023-04-27] MEDS: SPIRONOLACTONE 50 MG TAB PO SCH ×2 (09:27→21:53)
[2023-04-27] MEDS: atenoloL 50 MG TAB PO SCH ×2 (09:27→21:54)
[2023-04-27] MEDS: PANTOPRAZOLE 40MG TAB (PROTONIX) PO SCH (09:27)
[2023-04-27] MEDS: PERCOCET 5MG/325MG TAB PO PRN (13:43)
[2023-04-27] MEDS: METOCLOPRAMIDE INJ 10MG/2ML VIAL IV PRN (13:48)
[2023-04-27 14:00] VITALS: BP 114/75; TEMP 98.4; O2SAT 98
[2023-04-27 21:37] VITALS: BP 120/80; TEMP 98.1; O2SAT 97
[2023-04-28] MEDS ORDERED: LIDOCAINE 2% JELLY 6ML SYRINGE TOP ONE (00:45)
[2023-04-28] MEDS ORDERED: BENZOCAINE 10% 9GM TUBE (ANBESOL) TOP PRN (00:55)
[2023-04-28 06:15] VITALS: BP 121/74; TEMP 98.1; O2SAT 96
[2023-04-28] MEDS: LACTULOSE 20GM/30ML SYRUP UDC PO SCH ×3 (09:00→20:34)
[2023-04-28] MEDS: FUROSEMIDE 40 MG TAB PO SCH ×3 (09:20→20:34)
[2023-04-28] MEDS: ENOXAPARIN 40MG/0.4ML SYRINGE (J1650 PER 10MG) SC SCH (09:20)
[2023-04-28] MEDS: atenoloL 50 MG TAB PO SCH ×2 (09:20→20:35)
[2023-04-28] MEDS: rifAXIMin 550 MG TAB (XIFAXAN) PO SCH ×2 (09:21→20:32)
[2023-04-28] MEDS: oxyBUTYnin 5 MG TAB PO SCH ×2 (09:21→20:32)
[2023-04-28] MEDS: SPIRONOLACTONE 50 MG TAB PO SCH ×2 (09:21→20:33)
[2023-04-28] MEDS: PANTOPRAZOLE 40MG TAB (PROTONIX) PO SCH (09:21)
[2023-04-28] MEDS: METOCLOPRAMIDE INJ 10MG/2ML VIAL IV PRN (09:25)
[2023-04-28 14:28] VITALS: BP 110/75; TEMP 97.4; O2SAT 97
[2023-04-28] MEDS: ONDANSETRON 4MG 2ML VIAL IV PRN (14:35)
[2023-04-28 19:58] VITALS: BP 115/70; TEMP 98.1; O2SAT 99
[2023-04-28] MEDS ORDERED: BISACODYL 10MG SUPP PR ONE (20:00)
[2023-04-29 05:42] LABS: HEMATOCRIT 41.9 % (42.0-52.0); HEMOGLOBIN 14.8 g/dl (13.5-17.5); MEAN CORPUSCULAR HEMOGLOBIN 30.8 pg (27.0-33.0); MEAN CORPUSCULAR HGB CONC 35.3 g/dl (32.0-36.5); MEAN CORPUSCULAR VOLUME 87.3 fl (80.0-96.0); PLATELET COUNT, AUTOMATED 117 10^3/uL (150-450); WHITE BLOOD COUNT 11.3 10^3/uL (4.0-10.0)
[2023-04-29 05:43] VITALS: BP 120/71; TEMP 98.2; O2SAT 98
[2023-04-29] MEDS: METOCLOPRAMIDE INJ 10MG/2ML VIAL IV PRN ×2 (07:33→22:18)
[2023-04-29] MEDS: SPIRONOLACTONE 50 MG TAB PO SCH ×2 (08:57→21:59)
[2023-04-29] MEDS: FUROSEMIDE 40 MG TAB PO SCH ×3 (08:57→21:59)
[2023-04-29] MEDS: atenoloL 50 MG TAB PO SCH ×2 (08:58→21:59)
[2023-04-29] MEDS: LACTULOSE 20GM/30ML SYRUP UDC PO SCH ×3 (08:58→21:00)
[2023-04-29] MEDS: rifAXIMin 550 MG TAB (XIFAXAN) PO SCH ×2 (08:58→21:59)
[2023-04-29] MEDS: PANTOPRAZOLE 40MG TAB (PROTONIX) PO SCH (08:58)
[2023-04-29] MEDS: oxyBUTYnin 5 MG TAB PO SCH ×2 (08:58→22:00)
[2023-04-29] MEDS: ENOXAPARIN 40MG/0.4ML SYRINGE (J1650 PER 10MG) SC SCH (08:58)
[2023-04-29 21:40] VITALS: BP 117/78; TEMP 97.9; O2SAT 100
[2023-04-29] MEDS: PERCOCET 5MG/325MG TAB PO PRN (22:19)
[2023-04-30 01:48] VITALS: BP 108/73; TEMP 98.1; O2SAT 97
[2023-04-30 05:37] VITALS: BP 107/65; TEMP 97.9; O2SAT 96
[2023-04-30] MEDS: METOCLOPRAMIDE INJ 10MG/2ML VIAL IV PRN ×2 (06:27→19:01)
[2023-04-30] MEDS: SPIRONOLACTONE 50 MG TAB PO SCH ×2 (08:20→20:09)
[2023-04-30] MEDS: rifAXIMin 550 MG TAB (XIFAXAN) PO SCH ×2 (08:21→20:09)
[2023-04-30] MEDS: oxyBUTYnin 5 MG TAB PO SCH ×2 (08:21→20:09)
[2023-04-30] MEDS: PANTOPRAZOLE 40MG TAB (PROTONIX) PO SCH (08:21)
[2023-04-30] MEDS: FUROSEMIDE 40 MG TAB PO SCH ×3 (08:21→20:09)
[2023-04-30] MEDS: atenoloL 50 MG TAB PO SCH ×2 (08:23→20:02)
[2023-04-30] MEDS: ENOXAPARIN 40MG/0.4ML SYRINGE (J1650 PER 10MG) SC SCH (08:24)
[2023-04-30] MEDS: LACTULOSE 20GM/30ML SYRUP UDC PO SCH ×3 (08:26→20:03)
[2023-04-30 14:00] VITALS: BP 121/75; TEMP 98.1; O2SAT 99
[2023-04-30] MEDS: PERCOCET 5MG/325MG TAB PO PRN ×2 (14:18→20:10)
[2023-04-30] MEDS: ONDANSETRON 4MG 2ML VIAL IV PRN (16:17)
[2023-04-30 21:30] VITALS: BP 107/64; TEMP 97.9; O2SAT 99
[2023-05-01] VITALS (7 sets, daily range): BP systolic 102–140; BP diastolic 57–80; TEMP 97.5–98.1; O2SAT 94–99
[2023-05-01] MEDS: ONDANSETRON 4MG 2ML VIAL IV PRN ×2 (03:38→22:55)
[2023-05-01] MEDS: PERCOCET 5MG/325MG TAB PO PRN ×3 (03:39→22:56)
[2023-05-01] MEDS: LACTULOSE 20GM/30ML SYRUP UDC PO SCH ×3 (09:00→22:55)
[2023-05-01] MEDS: FUROSEMIDE 40 MG TAB PO SCH ×3 (09:00→22:53)
[2023-05-01] MEDS ORDERED: SUGAMMADEX SODIUM 500 MG/5 ML VIAL (BRIDION) As Ordered ONE (10:44)
[2023-05-01] MEDS ORDERED: LIDOCAINE 2% 100MG/5ML SDV (FOR ANES.) As Ordered ONE (10:44)
[2023-05-01] MEDS ORDERED: propofoL 200 MG/20 ML VIAL As Ordered ONE (10:44)
[2023-05-01] MEDS ORDERED: ACETAMINOPHEN 1000MG 100ML IV BAG As Ordered ONE ×2 (10:44→10:48)
[2023-05-01] MEDS ORDERED: ROCURONIUM BROMIDE 50MG/5ML VIAL As Ordered ONE ×2 (10:44→12:14)
[2023-05-01] MEDS ORDERED: MIDAZOLAM INJ 2MG/2ML VIAL As Ordered ONE (10:45)
[2023-05-01] MEDS ORDERED: fentaNYL 100 MCG/2 ML INJECTION As Ordered ONE (10:45)
[2023-05-01] MEDS ORDERED: KETOROLAC 60MG 2ML VIAL As Ordered ONE (10:45)
[2023-05-01] MEDS ORDERED: ONDANSETRON 4MG 2ML VIAL As Ordered ONE (10:49)
[2023-05-01] MEDS ORDERED: HEPARIN SOD (PORCINE) 5000UNITS/ML 1ML VIAL/SYRINGE As Ordered ONE (11:17)
[2023-05-01] MEDS ORDERED: ceFAZolin 2 GM/D5W 50 ML IV BAG As Ordered ONE (12:06)
[2023-05-01] MEDS ORDERED: fentaNYL 100 MCG/2 ML INJECTION IV PRN (12:55)
[2023-05-01] MEDS ORDERED: oxyCODONE 5MG TAB PO PRN (12:55)
[2023-05-01] MEDS ORDERED: ONDANSETRON 4MG 2ML VIAL IV PRN (12:55)
[2023-05-01] MEDS ORDERED: METOCLOPRAMIDE INJ 10MG/2ML VIAL IV PRN (12:55)
[2023-05-01] MEDS: oxyBUTYnin 5 MG TAB PO SCH ×2 (14:02→22:54)
[2023-05-01] MEDS: atenoloL 50 MG TAB PO SCH ×2 (14:02→22:54)
[2023-05-01] MEDS: SPIRONOLACTONE 50 MG TAB PO SCH ×2 (14:03→22:54)
[2023-05-01] MEDS: PANTOPRAZOLE 40MG TAB (PROTONIX) PO SCH (14:03)
[2023-05-01] MEDS: rifAXIMin 550 MG TAB (XIFAXAN) PO SCH ×2 (14:03→22:53)
[2023-05-01] MEDS: ENOXAPARIN 40MG/0.4ML SYRINGE (J1650 PER 10MG) SC SCH (14:04)
[2023-05-02 01:41] VITALS: TEMP 97.7; O2SAT 95
[2023-05-02 05:48] VITALS: BP 104/54; TEMP 98.1; O2SAT 96
[2023-05-02] MEDS: PANTOPRAZOLE 40MG TAB (PROTONIX) PO SCH (08:19)
[2023-05-02] MEDS: SPIRONOLACTONE 50 MG TAB PO SCH ×2 (08:19→20:27)
[2023-05-02] MEDS: rifAXIMin 550 MG TAB (XIFAXAN) PO SCH ×2 (08:19→20:27)
[2023-05-02] MEDS: oxyBUTYnin 5 MG TAB PO SCH ×2 (08:19→20:27)
[2023-05-02] MEDS: FUROSEMIDE 40 MG TAB PO SCH ×3 (08:20→20:27)
[2023-05-02] MEDS: atenoloL 50 MG TAB PO SCH ×2 (08:22→20:29)
[2023-05-02] MEDS: ENOXAPARIN 40MG/0.4ML SYRINGE (J1650 PER 10MG) SC SCH (08:23)
[2023-05-02] MEDS: LACTULOSE 20GM/30ML SYRUP UDC PO SCH ×4 (08:23→20:30)
[2023-05-02] MEDS: PERCOCET 5MG/325MG TAB PO PRN ×2 (10:39→20:26)
[2023-05-02 14:00] VITALS: BP 118/65; TEMP 98.1; O2SAT 99
[2023-05-02 20:10] VITALS: BP 114/57; TEMP 98.1; O2SAT 99
[2023-05-02] MEDS ORDERED: BISACODYL 10MG SUPP PR ONE (20:50)
[2023-05-02] MEDS: ONDANSETRON 4MG 2ML VIAL IV PRN (22:48)
[2023-05-03 05:50] VITALS: BP 124/66; TEMP 98.4; O2SAT 98
[2023-05-03] MEDS: LACTULOSE 20GM/30ML SYRUP UDC PO SCH (09:00)
[2023-05-03] MEDS: ENOXAPARIN 40MG/0.4ML SYRINGE (J1650 PER 10MG) SC SCH (09:00)
[2023-05-03] MEDS: rifAXIMin 550 MG TAB (XIFAXAN) PO SCH (09:43)
[2023-05-03] MEDS: PANTOPRAZOLE 40MG TAB (PROTONIX) PO SCH (09:43)
[2023-05-03] MEDS: oxyBUTYnin 5 MG TAB PO SCH (09:43)
[2023-05-03] MEDS: FUROSEMIDE 40 MG TAB PO SCH (09:43)
[2023-05-03] MEDS: SPIRONOLACTONE 50 MG TAB PO SCH (09:43)
[2023-05-03 09:46] VITALS: BP 116/66
[2023-05-03] MEDS: atenoloL 50 MG TAB PO SCH (09:46)
[2023-05-03] MEDS ORDERED: ALDA50TA2 PO (12:22)
[2023-05-03] MEDS ORDERED: PERCOCET PO (12:22)
== END 2023-05-03 16:20 | disposition home health service (06) | DRG 354 ==
LOC: EDBD 16:07 → M ED 16:07 → M RR INP 19:19 → M PCU 21:28 → M ED 22:33 → M MS5PR 04-23 17:11
PROVIDERS: ADMIT Surgery; ATTEND Surgery
PROC: 0WQF0ZZ Repair Abdominal Wall, Open Approach (ICD-10-PCS; principal; 2023-04-17 19:00)
PROC: 0WHG43Z Insertion of Infusion Device into Peritoneal Cavity, Percutaneous Endoscopic Approach (ICD-10-PCS; 2023-05-01)
DX: K42.0 Umbilical hernia with obstruction, without gangrene (principal); I85.10 Secondary esophageal varices without bleeding; K56.50 Intestinal adhesions [bands], unspecified as to partial versus complete obstruction; R18.8 Other ascites; K31.9 Disease of stomach and duodenum, unspecified; K74.60 Unspecified cirrhosis of liver; I10 Essential (primary) hypertension; Z87.891 Personal history of nicotine dependence; Z79.899 Other long term (current) drug therapy; Z79.82 Long term (current) use of aspirin; K80.20 Calculus of gallbladder without cholecystitis without obstruction; J45.909 Unspecified asthma, uncomplicated; B18.2 Chronic viral hepatitis C

== ENCOUNTER 2023-05-12 20:21 | Inpatient (IN) | payer MEDICARE, MEDICAID ==
[~2023-05-12] VITALS: Ht 190.5 cm; Wt 93.2 kg
[~2023-05-12 20:21] MED LIST changes: +ALDA50TA2 PO; +ASPI-161 PO; +OXYB5TAB11 PO; +PERCOCET PO
[2023-05-12 21:04] LABS: BASO % 0.1 % (0.0-1.0); EOS # 0.1 10^3/uL (0.0-0.5); EOS % 0.4 % (0.0-3.0); HEMATOCRIT 36.9 % (42.0-52.0); HEMOGLOBIN 13.1 g/dl (13.5-17.5); LYMPH # 0.4 10^3/uL (1.5-5.0); LYMPH % 2.6 % (24.0-44.0); MEAN CORPUSCULAR HEMOGLOBIN 31.3 pg (27.0-33.0); MEAN CORPUSCULAR HGB CONC 35.5 g/dl (32.0-36.5); MEAN CORPUSCULAR VOLUME 88.1 fl (80.0-96.0); MONO # 1.3 10^3/uL (0.0-0.8); MONO % 7.8 % (2.0-8.0); NEUTROPHILS # 14.5 10^3/uL (1.5-8.5); NEUTROPHILS % 88.7 % (36.0-66.0); PLATELET COUNT, AUTOMATED 135 10^3/uL (150-450); RED BLOOD COUNT 4.19 10^6/uL (4.30-6.10); WHITE BLOOD COUNT 16.3 10^3/uL (4.0-10.0)
[2023-05-12 21:17] LABS: INR 1.32; PROTHROMBIN TIME 15.9 SECONDS (12.5-14.5)
[2023-05-12 21:29] LABS: BILIRUBIN,DIRECT 1.6 MG/DL (<0.4); BILIRUBIN,TOTAL 2.2 MG/DL (0.3-1.2); CALCIUM LEVEL 7.7 MG/DL (8.3-10.6); CREATININE FOR GFR 1.61 MG/DL (0.70-1.30); GLOMERULAR FILTRATION RATE 45.8 (>49); POTASSIUM SERUM 4.8 MMOL/L (3.5-5.1); TOTAL PROTEIN 5.4 G/DL (5.7-8.2)
[2023-05-12 21:32] LABS: SOURCE, BODY FLUID PERITONEAL
[2023-05-12 21:33] LABS: APPEARANCE, BODY FLUID HAZY (CLEAR); PERITONEAL FL COLOR ORANGE (COLORLESS)
[2023-05-12 21:36] LABS: SOURCE, BODY FLUID ALBUMIN PERITONEAL
[2023-05-12 21:41] LABS: SOURCE, BODY FLUID GLUCOSE PERITONEAL
[2023-05-12 21:44] LABS: SOURCE, BODY FLUID TOT PROTEIN PERITONEAL; TOTAL PROTEIN, BODY FLUID < 2.0 G/DL (NOT ESTABLISHED)
[2023-05-12] MEDS ORDERED: cefTAZidime 2 GM in D5W MINI-BAG PLUS 50 ML IV ONE (21:50)
[2023-05-12] MEDS ORDERED: VANCOMYCIN HCL 2,000 MG in D5W 500 ML IV ONE (21:50)
[2023-05-12] MEDS ORDERED: VANCOMYCIN HCL 1,000 MG, VIAL MATE ADAPTER 1 EACH in D5W 250 ML IV ONE ×6 (23:00)
[2023-05-12] MEDS ORDERED: NS 1,000 ML IV ONE (23:30)
[2023-05-12] MEDS: MORPHINE 2 MG/ML 1ML VIAL IV PRN (23:34)
[2023-05-12] MEDS ORDERED: HOME MED LIST COMPLETE! XX SCH (23:35)
[2023-05-13 01:03] LABS: MAGNESIUM LEVEL 2.1 MG/DL (1.8-2.4)
[2023-05-13] MEDS ORDERED: cefTAZidime 2 GM in D5W MINI-BAG PLUS 50 ML IV SCH (01:30)
[2023-05-13] MEDS: MORPHINE 2 MG/ML 1ML VIAL IV PRN (01:40)
[2023-05-13 01:44] LABS: APPEARANCE, URINE HAZY (CLEAR); BACTERIA, URINE AUTO 1+ (NEGATIVE); BILIRUBIN, URINE AUTO NEGATIVE (NEGATIVE); BLOOD, URINE BLOOD 2+ (NEGATIVE); COLOR, URINE AMBER (YELLOW); GLUCOSE, URINE (UA) AUTO NEGATIVE (NEGATIVE); KETONE, URINE AUTO NEGATIVE (NEGATIVE); LEUKOCYTE ESTERASE, URINE AUTO 1+ (NEGATIVE); MUCUS, URINE SMALL (NEGATIVE); NITRITE, URINE AUTO NEGATIVE (NEGATIVE); PROTEIN, URINE AUTO NEGATIVE (NEGATIVE); RBC, URINE AUTO 1 /HPF (0-3); SPECIFIC GRAVITY URINE AUTO 1.018 (1.002-1.035); SQUAMOUS EPITHELIAL CELL UR AU 0 /HPF (0-6); WBC, URINE AUTO 36 /HPF (0-3)
[2023-05-13] MEDS ORDERED: ASPIRIN 81MG ENTERIC TABLET PO PRN (01:45)
[2023-05-13] MEDS ORDERED: ALBUTEROL 90 MCG/ACT 8GM HFA INHALER INH PRN (01:45)
[2023-05-13 01:51] LABS: CREATININE,RANDOM URINE 139.4 MG/DL
[2023-05-13 02:13] LABS: SODIUM,RANDOM URINE < 10 MMOL/L
[2023-05-13 02:20] VITALS: BP 114/59; TEMP 98.8; O2SAT 97
[2023-05-13] MEDS: oxyCODONE 5MG TAB PO PRN ×3 (04:52→20:33)
[2023-05-13 05:27] LABS: HEMATOCRIT 34.2 % (42.0-52.0); MEAN CORPUSCULAR HEMOGLOBIN 30.5 pg (27.0-33.0); MEAN CORPUSCULAR HGB CONC 35.1 g/dl (32.0-36.5); PLATELET COUNT, AUTOMATED 102 10^3/uL (150-450); RED BLOOD COUNT 3.93 10^6/uL (4.30-6.10); WHITE BLOOD COUNT 10.4 10^3/uL (4.0-10.0)
[2023-05-13 05:49] LABS: CALCIUM LEVEL 7.2 MG/DL (8.3-10.6); CREATININE FOR GFR 1.46 MG/DL (0.70-1.30); GLOMERULAR FILTRATION RATE 51.3 (>49); MAGNESIUM LEVEL 1.9 MG/DL (1.8-2.4); POTASSIUM SERUM 5.1 MMOL/L (3.5-5.1)
[2023-05-13] MEDS: cefTAZidime 2 GM in D5W MINI-BAG PLUS 50 ML IV SCH ×3 (06:58→21:36)
[2023-05-13] MEDS: HEPARIN SOD (PORCINE) 5000UNITS/ML 1ML VIAL/SYRINGE SQ SCH ×3 (06:58→21:37)
[2023-05-13] MEDS: LACTULOSE 20GM/30ML SYRUP UDC PO SCH ×2 (08:16→21:36)
[2023-05-13] MEDS: PANTOPRAZOLE 40MG TAB (PROTONIX) PO SCH (08:17)
[2023-05-13] MEDS: oxyBUTYnin 5 MG TAB PO SCH ×2 (08:17→21:37)
[2023-05-13] MEDS: rifAXIMin 550 MG TAB (XIFAXAN) PO SCH ×2 (08:17→21:37)
[2023-05-13] MEDS: atenoloL 50 MG TAB PO SCH ×2 (08:22→21:37)
[2023-05-13] MEDS: VANCOMYCIN HCL 1,000 MG, VIAL MATE ADAPTER 1 EACH in D5W 250 ML IV SCH ×2 (09:15→21:36)
[2023-05-13 12:17] VITALS: BP 111/69
[2023-05-13] MEDS: ONDANSETRON 4MG 2ML VIAL IV PRN ×2 (12:17→20:33)
[2023-05-13 12:49] VITALS: BP 140/67; TEMP 97.2; O2SAT 98
[2023-05-13 14:00] VITALS: BP 124/67; TEMP 98.1; O2SAT 96
[2023-05-13 21:10] VITALS: BP 118/69; TEMP 98.1; O2SAT 99
[2023-05-14] MEDS: HEPARIN SOD (PORCINE) 5000UNITS/ML 1ML VIAL/SYRINGE SQ SCH ×3 (05:36→22:08)
[2023-05-14] MEDS: cefTAZidime 2 GM in D5W MINI-BAG PLUS 50 ML IV SCH ×3 (05:37→22:08)
[2023-05-14 06:00] VITALS: BP 118/68; TEMP 97.7; O2SAT 99
[2023-05-14] MEDS: oxyCODONE 5MG TAB PO PRN ×2 (06:59→20:21)
[2023-05-14 08:30] LABS: VANCOMYCIN LEVEL TROUGH 13.6 UG/ML (10.0-20.0)
[2023-05-14 08:32] LABS: ALBUMIN 1.7 G/DL (3.2-5.2); BILIRUBIN,TOTAL 2.8 MG/DL (0.3-1.2); CALCIUM LEVEL 7.5 MG/DL (8.3-10.6); CREATININE FOR GFR 1.3 MG/DL (0.70-1.30); GLOMERULAR FILTRATION RATE 58.6 (>49); POTASSIUM SERUM 5.1 MMOL/L (3.5-5.1)
[2023-05-14 08:42] LABS: HEMATOCRIT 39.5 % (42.0-52.0); HEMOGLOBIN 13.4 g/dl (13.5-17.5); MEAN CORPUSCULAR HEMOGLOBIN 30.5 pg (27.0-33.0); MEAN CORPUSCULAR HGB CONC 33.9 g/dl (32.0-36.5); PLATELET COUNT, AUTOMATED 136 10^3/uL (150-450); RED BLOOD COUNT 4.39 10^6/uL (4.30-6.10); WHITE BLOOD COUNT 13.4 10^3/uL (4.0-10.0)
[2023-05-14] MEDS: LACTULOSE 20GM/30ML SYRUP UDC PO SCH ×2 (09:07→20:22)
[2023-05-14] MEDS: PANTOPRAZOLE 40MG TAB (PROTONIX) PO SCH (09:08)
[2023-05-14] MEDS: atenoloL 50 MG TAB PO SCH ×2 (09:08→20:23)
[2023-05-14] MEDS: rifAXIMin 550 MG TAB (XIFAXAN) PO SCH ×2 (09:08→20:19)
[2023-05-14] MEDS: oxyBUTYnin 5 MG TAB PO SCH ×2 (09:08→20:18)
[2023-05-14] MEDS: VANCOMYCIN HCL 1,000 MG, VIAL MATE ADAPTER 1 EACH in D5W 250 ML IV SCH ×2 (09:09→20:21)
[2023-05-14 14:00] VITALS: BP 115/66; TEMP 97.9; O2SAT 98
[2023-05-14 14:25] LABS: APPEARANCE, BODY FLUID HAZY (CLEAR); ASCITES FL COLOR YELLOW (COLORLESS); SOURCE, BODY FLUID ASCITES
[2023-05-14 14:34] LABS: SOURCE, BODY FLUID ALBUMIN ASCITES
[2023-05-14 14:39] LABS: SOURCE, BODY FLUID GLUCOSE ASCITES
[2023-05-14 14:41] LABS: SOURCE, BODY FLUID TOT PROTEIN ASCITES; TOTAL PROTEIN, BODY FLUID < 2.0 G/DL (NOT ESTABLISHED)
[2023-05-14] MEDS: ONDANSETRON 4MG 2ML VIAL IV PRN (17:31)
[2023-05-14 20:36] VITALS: BP 110/66; TEMP 97.7; O2SAT 96
[2023-05-15] MEDS: cefTAZidime 2 GM in D5W MINI-BAG PLUS 50 ML IV SCH (05:26)
[2023-05-15] MEDS: HEPARIN SOD (PORCINE) 5000UNITS/ML 1ML VIAL/SYRINGE SQ SCH ×3 (05:30→21:02)
[2023-05-15] MEDS: oxyCODONE 5MG TAB PO PRN ×3 (05:31→18:30)
[2023-05-15 06:57] VITALS: BP 111/69; TEMP 97.1; O2SAT 97
[2023-05-15 08:15] LABS: BASO % 0.2 % (0.0-1.0); EOS # 0.3 10^3/uL (0.0-0.5); HEMATOCRIT 39.4 % (42.0-52.0); HEMOGLOBIN 13.6 g/dl (13.5-17.5); LYMPH # 0.5 10^3/uL (1.5-5.0); LYMPH % 3.6 % (24.0-44.0); MEAN CORPUSCULAR HEMOGLOBIN 30.8 pg (27.0-33.0); MEAN CORPUSCULAR HGB CONC 34.5 g/dl (32.0-36.5); MEAN CORPUSCULAR VOLUME 89.3 fl (80.0-96.0); MONO # 1.1 10^3/uL (0.0-0.8); NEUTROPHILS # 12.3 10^3/uL (1.5-8.5); NEUTROPHILS % 85.6 % (36.0-66.0); PLATELET COUNT, AUTOMATED 171 10^3/uL (150-450); RED BLOOD COUNT 4.41 10^6/uL (4.30-6.10); WHITE BLOOD COUNT 14.3 10^3/uL (4.0-10.0)
[2023-05-15 08:41] LABS: C REACTIVE PROTEIN QUANTITATIV 13.6 MG/DL (<1.0)
[2023-05-15 08:42] LABS: CALCIUM LEVEL 7.7 MG/DL (8.3-10.6); CREATININE FOR GFR 1.3 MG/DL (0.70-1.30); GLOMERULAR FILTRATION RATE 58.6 (>49); MAGNESIUM LEVEL 2.2 MG/DL (1.8-2.4); POTASSIUM SERUM 5.2 MMOL/L (3.5-5.1)
[2023-05-15] MEDS: LACTULOSE 20GM/30ML SYRUP UDC PO SCH ×2 (09:00→20:57)
[2023-05-15] MEDS: atenoloL 50 MG TAB PO SCH ×3 (09:00→21:02)
[2023-05-15] MEDS: rifAXIMin 550 MG TAB (XIFAXAN) PO SCH ×2 (09:42→20:57)
[2023-05-15] MEDS: PANTOPRAZOLE 40MG TAB (PROTONIX) PO SCH (09:42)
[2023-05-15] MEDS: oxyBUTYnin 5 MG TAB PO SCH ×2 (09:43→20:57)
[2023-05-15] MEDS: VANCOMYCIN HCL 1,000 MG, VIAL MATE ADAPTER 1 EACH in D5W 250 ML IV SCH ×2 (09:46→20:58)
[2023-05-15] MEDS: ONDANSETRON 4MG 2ML VIAL IV PRN (11:38)
[2023-05-15 14:02] VITALS: BP 110/68; TEMP 97.7; O2SAT 96
[2023-05-15 21:26] VITALS: BP 109/66; TEMP 98.4; O2SAT 96
[2023-05-16] MEDS ORDERED: BISACODYL 10MG SUPP PR ONE (00:25)
[2023-05-16] MEDS: oxyCODONE 5MG TAB PO PRN ×4 (00:45→19:58)
[2023-05-16] MEDS: HEPARIN SOD (PORCINE) 5000UNITS/ML 1ML VIAL/SYRINGE SQ SCH ×3 (05:33→22:00)
[2023-05-16 06:08] LABS: BASO % 0.2 % (0.0-1.0); EOS # 0.1 10^3/uL (0.0-0.5); EOS % 1.3 % (0.0-3.0); HEMATOCRIT 33.8 % (42.0-52.0); HEMOGLOBIN 11.8 g/dl (13.5-17.5); LYMPH # 0.4 10^3/uL (1.5-5.0); LYMPH % 4.8 % (24.0-44.0); MEAN CORPUSCULAR HEMOGLOBIN 31.1 pg (27.0-33.0); MEAN CORPUSCULAR HGB CONC 34.9 g/dl (32.0-36.5); MEAN CORPUSCULAR VOLUME 88.9 fl (80.0-96.0); MONO # 0.8 10^3/uL (0.0-0.8); MONO % 9.6 % (2.0-8.0); NEUTROPHILS # 7.4 10^3/uL (1.5-8.5); NEUTROPHILS % 83.6 % (36.0-66.0); PLATELET COUNT, AUTOMATED 115 10^3/uL (150-450); WHITE BLOOD COUNT 8.8 10^3/uL (4.0-10.0)
[2023-05-16 06:38] VITALS: BP 108/68; TEMP 98.8; O2SAT 96
[2023-05-16 06:39] LABS: BLOOD UREA NITROGEN 38 MG/DL (9-23); CALCIUM LEVEL 7.5 MG/DL (8.3-10.6); CARBON DIOXIDE LEVEL 24 MMOL/L (20-31); CHLORIDE LEVEL 104 MMOL/L (98-107); CREATININE FOR GFR 1.23 MG/DL (0.70-1.30); GLOMERULAR FILTRATION RATE > 60.0 (>49); GLUCOSE, FASTING 118 MG/DL (74-106); MAGNESIUM LEVEL 2.4 MG/DL (1.8-2.4); POTASSIUM SERUM 5.8 MMOL/L (3.5-5.1); SODIUM LEVEL 132 MMOL/L (136-145)
[2023-05-16] MEDS ORDERED: HumuLIN R (REGULAR) INSULIN (NovoLIN R) **100U/ML** PER UNIT IV STA (07:08)
[2023-05-16] MEDS ORDERED: DEXTROSE 50% 50ML SYRINGE IV STA (07:08)
[2023-05-16] MEDS ORDERED: ALBUTEROL SULFATE 2.5MG/0.5ML INH NEB SOLN NEB ONE (07:10)
[2023-05-16] MEDS: LACTULOSE 20GM/30ML SYRUP UDC PO SCH ×2 (09:00→21:00)
[2023-05-16] MEDS: oxyBUTYnin 5 MG TAB PO SCH ×2 (10:59→19:57)
[2023-05-16] MEDS: PANTOPRAZOLE 40MG TAB (PROTONIX) PO SCH (11:00)
[2023-05-16] MEDS: rifAXIMin 550 MG TAB (XIFAXAN) PO SCH ×2 (11:00→19:57)
[2023-05-16] MEDS: atenoloL 50 MG TAB PO SCH ×2 (11:02→19:57)
[2023-05-16] MEDS: VANCOMYCIN HCL 1,000 MG, VIAL MATE ADAPTER 1 EACH in D5W 250 ML IV SCH ×2 (11:03→19:58)
[2023-05-16 12:27] LABS: BLOOD UREA NITROGEN 37 MG/DL (9-23); CALCIUM LEVEL 7.9 MG/DL (8.3-10.6); CARBON DIOXIDE LEVEL 18 MMOL/L (20-31); CHLORIDE LEVEL 101 MMOL/L (98-107); CREATININE FOR GFR 1.17 MG/DL (0.70-1.30); GLOMERULAR FILTRATION RATE > 60.0 (>49); GLUCOSE, FASTING 107 MG/DL (74-106); POTASSIUM SERUM 5.4 MMOL/L (3.5-5.1); SODIUM LEVEL 129 MMOL/L (136-145)
[2023-05-16 14:01] VITALS: BP 106/65; TEMP 98.1; O2SAT 85
[2023-05-16] MEDS: BISACODYL 10MG SUPP PR SCH (17:09)
[2023-05-17] MEDS: BISACODYL 10MG SUPP PR SCH ×2 (05:47→17:09)
[2023-05-17] MEDS: HEPARIN SOD (PORCINE) 5000UNITS/ML 1ML VIAL/SYRINGE SQ SCH ×3 (05:47→20:14)
[2023-05-17 06:30] LABS: BASO % 0.6 % (0.0-1.0); EOS # 0.2 10^3/uL (0.0-0.5); EOS % 2.6 % (0.0-3.0); HEMATOCRIT 33.2 % (42.0-52.0); HEMOGLOBIN 11.7 g/dl (13.5-17.5); LYMPH # 0.5 10^3/uL (1.5-5.0); LYMPH % 7.4 % (24.0-44.0); MEAN CORPUSCULAR HEMOGLOBIN 31.3 pg (27.0-33.0); MEAN CORPUSCULAR HGB CONC 35.2 g/dl (32.0-36.5); MEAN CORPUSCULAR VOLUME 88.8 fl (80.0-96.0); MONO # 0.8 10^3/uL (0.0-0.8); MONO % 10.6 % (2.0-8.0); NEUTROPHILS # 5.6 10^3/uL (1.5-8.5); PLATELET COUNT, AUTOMATED 116 10^3/uL (150-450); RED BLOOD COUNT 3.74 10^6/uL (4.30-6.10); WHITE BLOOD COUNT 7.2 10^3/uL (4.0-10.0)
[2023-05-17 06:44] VITALS: BP 110/69; TEMP 97.5; O2SAT 96
[2023-05-17 06:51] LABS: BLOOD UREA NITROGEN 32 MG/DL (9-23); CALCIUM LEVEL 7.4 MG/DL (8.3-10.6); CARBON DIOXIDE LEVEL 22 MMOL/L (20-31); CHLORIDE LEVEL 102 MMOL/L (98-107); CREATININE FOR GFR 1.09 MG/DL (0.70-1.30); GLOMERULAR FILTRATION RATE > 60.0 (>49); GLUCOSE, FASTING 96 MG/DL (74-106); MAGNESIUM LEVEL 2.3 MG/DL (1.8-2.4); POTASSIUM SERUM 5.7 MMOL/L (3.5-5.1); SODIUM LEVEL 129 MMOL/L (136-145)
[2023-05-17] MEDS: oxyCODONE 5MG TAB PO PRN ×3 (07:18→20:11)
[2023-05-17] MEDS ORDERED: HumuLIN R (REGULAR) INSULIN (NovoLIN R) **100U/ML** PER UNIT IV STA (07:25)
[2023-05-17] MEDS ORDERED: DEXTROSE 50% 50ML SYRINGE IV STA (07:25)
[2023-05-17] MEDS: atenoloL 50 MG TAB PO SCH ×3 (09:00→20:13)
[2023-05-17] MEDS: LACTULOSE 20GM/30ML SYRUP UDC PO SCH ×2 (09:00→20:14)
[2023-05-17] MEDS: VANCOMYCIN HCL 1,000 MG, VIAL MATE ADAPTER 1 EACH in D5W 250 ML IV SCH ×2 (09:21→20:13)
[2023-05-17] MEDS: PANTOPRAZOLE 40MG TAB (PROTONIX) PO SCH (09:27)
[2023-05-17] MEDS: rifAXIMin 550 MG TAB (XIFAXAN) PO SCH ×2 (09:27→20:11)
[2023-05-17] MEDS: oxyBUTYnin 5 MG TAB PO SCH ×2 (09:28→20:13)
[2023-05-17] MEDS ORDERED: SOD POLYSTYRENE SULFONATE SUSP 15GM 60ML UD PO ONE (10:00)
[2023-05-17] MEDS ORDERED: CHLORASEPTIC SPRAY MT PRN (10:00)
[2023-05-17 14:00] VITALS: BP 111/69; TEMP 97.9; O2SAT 97
[2023-05-17 23:18] VITALS: BP 120/72; TEMP 97.1; O2SAT 95
[2023-05-18 05:34] LABS: BASO % 0.5 % (0.0-1.0); EOS # 0.2 10^3/uL (0.0-0.5); EOS % 2.5 % (0.0-3.0); HEMATOCRIT 33.6 % (42.0-52.0); HEMOGLOBIN 11.6 g/dl (13.5-17.5); LYMPH # 0.6 10^3/uL (1.5-5.0); LYMPH % 8.2 % (24.0-44.0); MEAN CORPUSCULAR HEMOGLOBIN 31.1 pg (27.0-33.0); MEAN CORPUSCULAR HGB CONC 34.5 g/dl (32.0-36.5); MEAN CORPUSCULAR VOLUME 90.1 fl (80.0-96.0); MONO # 0.8 10^3/uL (0.0-0.8); MONO % 11.5 % (2.0-8.0); NEUTROPHILS # 5.6 10^3/uL (1.5-8.5); NEUTROPHILS % 76.8 % (36.0-66.0); PLATELET COUNT, AUTOMATED 126 10^3/uL (150-450); RED BLOOD COUNT 3.73 10^6/uL (4.30-6.10); WHITE BLOOD COUNT 7.3 10^3/uL (4.0-10.0)
[2023-05-18 05:45] VITALS: BP 112/68; TEMP 97.8; O2SAT 97
[2023-05-18] MEDS: oxyCODONE 5MG TAB PO PRN ×2 (05:45→17:27)
[2023-05-18] MEDS: HEPARIN SOD (PORCINE) 5000UNITS/ML 1ML VIAL/SYRINGE SQ SCH ×3 (05:46→21:19)
[2023-05-18] MEDS: BISACODYL 10MG SUPP PR SCH ×2 (05:55→17:23)
[2023-05-18 06:02] LABS: BLOOD UREA NITROGEN 27 MG/DL (9-23); CARBON DIOXIDE LEVEL 24 MMOL/L (20-31); CHLORIDE LEVEL 104 MMOL/L (98-107); CREATININE FOR GFR 0.97 MG/DL (0.70-1.30); GLOMERULAR FILTRATION RATE > 60.0 (>49); GLUCOSE, FASTING 90 MG/DL (74-106); MAGNESIUM LEVEL 2.2 MG/DL (1.8-2.4); SODIUM LEVEL 132 MMOL/L (136-145)
[2023-05-18] MEDS: VANCOMYCIN HCL 1,000 MG, VIAL MATE ADAPTER 1 EACH in D5W 250 ML IV SCH ×2 (08:47→21:17)
[2023-05-18] MEDS: PANTOPRAZOLE 40MG TAB (PROTONIX) PO SCH (08:47)
[2023-05-18] MEDS: rifAXIMin 550 MG TAB (XIFAXAN) PO SCH ×2 (08:47→21:16)
[2023-05-18] MEDS: atenoloL 50 MG TAB PO SCH ×2 (08:47→21:16)
[2023-05-18] MEDS: oxyBUTYnin 5 MG TAB PO SCH ×2 (08:47→21:16)
[2023-05-18] MEDS: LACTULOSE 20GM/30ML SYRUP UDC PO SCH ×2 (08:48→21:00)
[2023-05-18] MEDS: SOD POLYSTYRENE SULFONATE SUSP 15GM 60ML UD PO SCH (08:48)
[2023-05-18] MEDS: MAGIC MOUTHWASH SUSPENSION BTL SSP SCH ×4 (09:00→17:23)
[2023-05-18 15:15] VITALS: BP 111/67; TEMP 97.9; O2SAT 97
[2023-05-18] MEDS: ONDANSETRON 4MG 2ML VIAL IV PRN (17:27)
[2023-05-18 20:13] VITALS: BP 111/69; TEMP 97.9; O2SAT 96
[2023-05-19 06:00] LABS: BASO # 0.1 10^3/uL (0.0-0.2); BASO % 0.8 % (0.0-1.0); EOS # 0.1 10^3/uL (0.0-0.5); HEMATOCRIT 32.5 % (42.0-52.0); HEMOGLOBIN 11.3 g/dl (13.5-17.5); LYMPH # 0.7 10^3/uL (1.5-5.0); LYMPH % 9.9 % (24.0-44.0); MEAN CORPUSCULAR HEMOGLOBIN 31.2 pg (27.0-33.0); MEAN CORPUSCULAR HGB CONC 34.8 g/dl (32.0-36.5); MEAN CORPUSCULAR VOLUME 89.8 fl (80.0-96.0); MONO # 0.8 10^3/uL (0.0-0.8); MONO % 11.7 % (2.0-8.0); NEUTROPHILS # 4.9 10^3/uL (1.5-8.5); PLATELET COUNT, AUTOMATED 135 10^3/uL (150-450); RED BLOOD COUNT 3.62 10^6/uL (4.30-6.10); WHITE BLOOD COUNT 6.6 10^3/uL (4.0-10.0)
[2023-05-19 06:12] VITALS: BP 112/71; TEMP 97.7; O2SAT 97
[2023-05-19] MEDS: BISACODYL 10MG SUPP PR SCH ×2 (06:18→17:22)
[2023-05-19] MEDS: HEPARIN SOD (PORCINE) 5000UNITS/ML 1ML VIAL/SYRINGE SQ SCH ×3 (06:19→20:35)
[2023-05-19 06:31] LABS: BLOOD UREA NITROGEN 24 MG/DL (9-23); CALCIUM LEVEL 7.1 MG/DL (8.3-10.6); CARBON DIOXIDE LEVEL 22 MMOL/L (20-31); CHLORIDE LEVEL 101 MMOL/L (98-107); GLOMERULAR FILTRATION RATE > 60.0 (>49); GLUCOSE, FASTING 88 MG/DL (74-106); MAGNESIUM LEVEL 2.1 MG/DL (1.8-2.4); POTASSIUM SERUM 4.8 MMOL/L (3.5-5.1); SODIUM LEVEL 130 MMOL/L (136-145)
[2023-05-19] MEDS: VANCOMYCIN HCL 1,000 MG, VIAL MATE ADAPTER 1 EACH in D5W 250 ML IV SCH ×2 (08:42→20:36)
[2023-05-19] MEDS: MAGIC MOUTHWASH SUSPENSION BTL SSP SCH ×3 (08:43→17:25)
[2023-05-19] MEDS: rifAXIMin 550 MG TAB (XIFAXAN) PO SCH ×2 (08:43→20:36)
[2023-05-19] MEDS: ONDANSETRON 4MG 2ML VIAL IV PRN ×2 (08:44→17:25)
[2023-05-19] MEDS: atenoloL 50 MG TAB PO SCH ×2 (08:45→20:36)
[2023-05-19] MEDS: oxyCODONE 5MG TAB PO PRN ×2 (08:46→17:26)
[2023-05-19] MEDS: SUCRALFATE 1 GM TAB PO SCH ×3 (08:46→17:25)
[2023-05-19] MEDS: PANTOPRAZOLE 40MG TAB (PROTONIX) PO SCH (08:46)
[2023-05-19] MEDS: oxyBUTYnin 5 MG TAB PO SCH ×2 (08:46→20:35)
[2023-05-19] MEDS: SOD POLYSTYRENE SULFONATE SUSP 15GM 60ML UD PO SCH (08:47)
[2023-05-19] MEDS: LACTULOSE 20GM/30ML SYRUP UDC PO SCH ×2 (08:47→20:36)
[2023-05-19 14:00] VITALS: BP 113/72; TEMP 98.7; O2SAT 95
[2023-05-19 19:46] VITALS: BP 113/71; TEMP 97.7; O2SAT 98
[2023-05-20 05:11] VITALS: BP 100/53; TEMP 97.7; O2SAT 94
[2023-05-20] MEDS: oxyCODONE 5MG TAB PO PRN ×3 (05:51→21:16)
[2023-05-20] MEDS: BISACODYL 10MG SUPP PR SCH ×2 (05:52→17:04)
[2023-05-20] MEDS: HEPARIN SOD (PORCINE) 5000UNITS/ML 1ML VIAL/SYRINGE SQ SCH ×3 (05:52→21:55)
[2023-05-20 06:24] LABS: BLOOD UREA NITROGEN 24 MG/DL (9-23); CALCIUM LEVEL 7.5 MG/DL (8.3-10.6); CARBON DIOXIDE LEVEL 24 MMOL/L (20-31); CHLORIDE LEVEL 101 MMOL/L (98-107); CREATININE FOR GFR 1.05 MG/DL (0.70-1.30); GLOMERULAR FILTRATION RATE > 60.0 (>49); GLUCOSE, FASTING 91 MG/DL (74-106); MAGNESIUM LEVEL 2.1 MG/DL (1.8-2.4); SODIUM LEVEL 130 MMOL/L (136-145)
[2023-05-20] MEDS: SOD POLYSTYRENE SULFONATE SUSP 15GM 60ML UD PO SCH (08:19)
[2023-05-20] MEDS: oxyBUTYnin 5 MG TAB PO SCH ×2 (08:21→21:56)
[2023-05-20] MEDS: LACTULOSE 20GM/30ML SYRUP UDC PO SCH ×2 (08:21→21:00)
[2023-05-20] MEDS: rifAXIMin 550 MG TAB (XIFAXAN) PO SCH ×2 (08:21→21:56)
[2023-05-20] MEDS: SUCRALFATE 1 GM TAB PO SCH ×3 (08:22→17:04)
[2023-05-20] MEDS: PANTOPRAZOLE 40MG TAB (PROTONIX) PO SCH (08:22)
[2023-05-20] MEDS: atenoloL 50 MG TAB PO SCH ×2 (08:23→21:57)
[2023-05-20] MEDS: MAGIC MOUTHWASH SUSPENSION BTL SSP SCH ×3 (08:24→17:04)
[2023-05-20] MEDS: VANCOMYCIN HCL 1,000 MG, VIAL MATE ADAPTER 1 EACH in D5W 250 ML IV SCH ×2 (09:14→21:55)
[2023-05-20] MEDS ORDERED: ALTEPLASE 2MG/2ML VIAL XX ONE (12:00)
[2023-05-20] MEDS: ONDANSETRON 4MG 2ML VIAL IV PRN ×2 (13:58→21:56)
[2023-05-20 14:00] VITALS: BP 120/71; TEMP 97.7; O2SAT 95
[2023-05-20 19:50] VITALS: BP 108/64; TEMP 97.7; O2SAT 95
[2023-05-21 05:25] VITALS: BP 123/77; TEMP 98.1; O2SAT 98
[2023-05-21] MEDS: oxyCODONE 5MG TAB PO PRN ×2 (05:32→20:56)
[2023-05-21] MEDS: HEPARIN SOD (PORCINE) 5000UNITS/ML 1ML VIAL/SYRINGE SQ SCH ×3 (05:35→20:53)
[2023-05-21] MEDS: BISACODYL 10MG SUPP PR SCH ×2 (05:36→09:35)
[2023-05-21 06:18] LABS: BLOOD UREA NITROGEN 21 MG/DL (9-23); CALCIUM LEVEL 7.3 MG/DL (8.3-10.6); CARBON DIOXIDE LEVEL 23 MMOL/L (20-31); CHLORIDE LEVEL 101 MMOL/L (98-107); CREATININE FOR GFR 1.01 MG/DL (0.70-1.30); GLOMERULAR FILTRATION RATE > 60.0 (>49); GLUCOSE, FASTING 85 MG/DL (74-106); POTASSIUM SERUM 5.2 MMOL/L (3.5-5.1); SODIUM LEVEL 129 MMOL/L (136-145)
[2023-05-21] MEDS: ONDANSETRON 4MG 2ML VIAL IV PRN (06:39)
[2023-05-21] MEDS: atenoloL 50 MG TAB PO SCH ×2 (08:46→20:54)
[2023-05-21] MEDS: SUCRALFATE 1 GM TAB PO SCH ×3 (08:46→17:27)
[2023-05-21] MEDS: VANCOMYCIN HCL 1,000 MG, VIAL MATE ADAPTER 1 EACH in D5W 250 ML IV SCH ×2 (08:46→20:54)
[2023-05-21] MEDS: PANTOPRAZOLE 40MG TAB (PROTONIX) PO SCH (08:46)
[2023-05-21] MEDS: rifAXIMin 550 MG TAB (XIFAXAN) PO SCH ×2 (08:46→20:54)
[2023-05-21] MEDS: MAGIC MOUTHWASH SUSPENSION BTL SSP SCH ×3 (08:50→17:27)
[2023-05-21] MEDS: SOD POLYSTYRENE SULFONATE SUSP 15GM 60ML UD PO SCH (09:00)
[2023-05-21] MEDS: LACTULOSE 20GM/30ML SYRUP UDC PO SCH ×2 (09:00→20:54)
[2023-05-21] MEDS: oxyBUTYnin 5 MG TAB PO SCH ×2 (09:18→20:53)
[2023-05-21 14:00] VITALS: BP 124/78; TEMP 97.7; O2SAT 96
[2023-05-21 18:13] LABS: APPEARANCE, BODY FLUID CLOUDY (CLEAR); ASCITES FL COLOR AMBER (COLORLESS); SOURCE, BODY FLUID ASCITES
[2023-05-21 20:21] VITALS: BP 121/74; TEMP 97.9; O2SAT 98
[2023-05-21] MEDS: LINEZOLID 600MG TABLET (ZYVOX) PO SCH (21:37)
[2023-05-22 05:09] VITALS: BP 125/75; TEMP 97.9; O2SAT 97
[2023-05-22] MEDS: BISACODYL 10MG SUPP PR SCH ×2 (05:28→17:40)
[2023-05-22] MEDS: HEPARIN SOD (PORCINE) 5000UNITS/ML 1ML VIAL/SYRINGE SQ SCH ×3 (05:28→20:32)
[2023-05-22] MEDS: oxyCODONE 5MG TAB PO PRN ×2 (05:28→18:39)
[2023-05-22] MEDS: ONDANSETRON 4MG 2ML VIAL IV PRN (05:28)
[2023-05-22 06:20] LABS: BLOOD UREA NITROGEN 22 MG/DL (9-23); CALCIUM LEVEL 7.5 MG/DL (8.3-10.6); CARBON DIOXIDE LEVEL 25 MMOL/L (20-31); CHLORIDE LEVEL 102 MMOL/L (98-107); CREATININE FOR GFR 1.09 MG/DL (0.70-1.30); GLOMERULAR FILTRATION RATE > 60.0 (>49); GLUCOSE, FASTING 96 MG/DL (74-106); MAGNESIUM LEVEL 2.1 MG/DL (1.8-2.4); POTASSIUM SERUM 5.5 MMOL/L (3.5-5.1); SODIUM LEVEL 132 MMOL/L (136-145)
[2023-05-22] MEDS: LACTULOSE 20GM/30ML SYRUP UDC PO SCH ×2 (09:00→20:31)
[2023-05-22] MEDS: SOD POLYSTYRENE SULFONATE SUSP 15GM 60ML UD PO SCH (09:21)
[2023-05-22] MEDS: SUCRALFATE 1 GM TAB PO SCH ×3 (09:22→17:06)
[2023-05-22] MEDS: rifAXIMin 550 MG TAB (XIFAXAN) PO SCH ×2 (09:22→20:31)
[2023-05-22] MEDS: oxyBUTYnin 5 MG TAB PO SCH ×2 (09:22→20:31)
[2023-05-22] MEDS: LINEZOLID 600MG TABLET (ZYVOX) PO SCH ×2 (09:22→20:30)
[2023-05-22] MEDS: PANTOPRAZOLE 40MG TAB (PROTONIX) PO SCH (09:22)
[2023-05-22] MEDS: atenoloL 50 MG TAB PO SCH ×2 (09:24→20:31)
[2023-05-22] MEDS: MAGIC MOUTHWASH SUSPENSION BTL SSP SCH ×3 (09:30→17:07)
[2023-05-22] MEDS ORDERED: FUROSEMIDE 40MG/4ML VIAL IV ONE (11:35)
[2023-05-22] MEDS ORDERED: CALCIUM GLUCONATE 1,000 MG in D5W MINI-BAG PLUS 100 ML IV ONE (11:35)
[2023-05-22] MEDS ORDERED: metOLazone 5 MG TAB PO ONE (11:35)
[2023-05-22] MEDS ORDERED: PATIROMER SORBITEX CALCIUM 8.4 GM POWDER PACKET (VELTASSA) PO ONE (11:40)
[2023-05-22] MEDS: MIDODRINE 5 MG TAB PO SCH ×2 (12:46→17:06)
[2023-05-22 13:00] VITALS: BP 120/73
[2023-05-22 14:15] VITALS: BP 114/70; TEMP 97.7; O2SAT 98
[2023-05-22] MEDS ORDERED: LIDOCAINE 1% MDV 20ML VIAL As Ordered ONE (14:56)
[2023-05-22] MEDS ORDERED: fentaNYL 100 MCG/2 ML INJECTION As Ordered ONE (15:30)
[2023-05-22] MEDS ORDERED: propofoL 200 MG/20 ML VIAL As Ordered ONE (15:30)
[2023-05-22] MEDS ORDERED: MIDAZOLAM INJ 2MG/2ML VIAL As Ordered ONE (15:30)
[2023-05-22] MEDS ORDERED: ONDANSETRON 4MG 2ML VIAL As Ordered ONE (15:30)
[2023-05-22] MEDS ORDERED: LIDOCAINE 2% 100MG/5ML SDV (FOR ANES.) As Ordered ONE (15:30)
[2023-05-22 17:15] VITALS: BP 103/61; TEMP 98.2; O2SAT 99
[2023-05-22] MEDS: FUROSEMIDE 40MG/4ML VIAL IV SCH (18:00)
[2023-05-22 18:52] LABS: BLOOD UREA NITROGEN 22 MG/DL (9-23); CALCIUM LEVEL 7.2 MG/DL (8.3-10.6); CARBON DIOXIDE LEVEL 23 MMOL/L (20-31); CHLORIDE LEVEL 103 MMOL/L (98-107); CREATININE FOR GFR 1.03 MG/DL (0.70-1.30); GLOMERULAR FILTRATION RATE > 60.0 (>49); GLUCOSE, FASTING 107 MG/DL (74-106); MAGNESIUM LEVEL 2.1 MG/DL (1.8-2.4); POTASSIUM SERUM 5.1 MMOL/L (3.5-5.1); SODIUM LEVEL 133 MMOL/L (136-145)
[2023-05-22 20:08] VITALS: BP 109/73; TEMP 97.2; O2SAT 95
[2023-05-23 00:30] LABS: CALCIUM LEVEL 7.5 MG/DL (8.3-10.6); CREATININE FOR GFR 1.4 MG/DL (0.70-1.30); GLOMERULAR FILTRATION RATE 53.8 (>49); POTASSIUM SERUM 4.8 MMOL/L (3.5-5.1)
[2023-05-23] MEDS: oxyCODONE 5MG TAB PO PRN (05:22)
[2023-05-23] MEDS: HEPARIN SOD (PORCINE) 5000UNITS/ML 1ML VIAL/SYRINGE SQ SCH ×2 (05:22→14:00)
[2023-05-23] MEDS: FUROSEMIDE 40MG/4ML VIAL IV SCH ×2 (05:22)
[2023-05-23] MEDS: ONDANSETRON 4MG 2ML VIAL IV PRN (05:22)
[2023-05-23] MEDS: BISACODYL 10MG SUPP PR SCH (05:23)
[2023-05-23 05:40] VITALS: BP 117/66; TEMP 97.7; O2SAT 95
[2023-05-23 06:58] LABS: CALCIUM LEVEL 7.3 MG/DL (8.3-10.6); CREATININE FOR GFR 1.4 MG/DL (0.70-1.30); GLOMERULAR FILTRATION RATE 53.8 (>49); POTASSIUM SERUM 4.6 MMOL/L (3.5-5.1)
[2023-05-23] MEDS: rifAXIMin 550 MG TAB (XIFAXAN) PO SCH (08:29)
[2023-05-23] MEDS: PANTOPRAZOLE 40MG TAB (PROTONIX) PO SCH (08:29)
[2023-05-23] MEDS: SUCRALFATE 1 GM TAB PO SCH ×2 (08:29→12:33)
[2023-05-23] MEDS: MIDODRINE 5 MG TAB PO SCH ×2 (08:30→12:34)
[2023-05-23] MEDS: oxyBUTYnin 5 MG TAB PO SCH (08:30)
[2023-05-23] MEDS ORDERED: CALCIUM GLUCONATE 1,000 MG in D5W MINI-BAG PLUS 100 ML IV ONE (08:30)
[2023-05-23] MEDS: LINEZOLID 600MG TABLET (ZYVOX) PO SCH (08:30)
[2023-05-23] MEDS: MAGIC MOUTHWASH SUSPENSION BTL SSP SCH ×2 (08:31→12:34)
[2023-05-23] MEDS: LACTULOSE 20GM/30ML SYRUP UDC PO SCH (08:37)
[2023-05-23 08:38] VITALS: BP 110/58
[2023-05-23] MEDS: atenoloL 50 MG TAB PO SCH (08:38)
[2023-05-23] MEDS: SOD POLYSTYRENE SULFONATE SUSP 15GM 60ML UD PO SCH (08:38)
[2023-05-23] MEDS ORDERED: LINE1TAB6 PO (10:56)
[2023-05-23] MEDS ORDERED: CARA1TAB6 PO (11:00)
[2023-05-23] MEDS ORDERED: SELF1KIT MC (11:01)
[2023-05-23 11:55] VITALS: BP 141/79; TEMP 98.2; O2SAT 96
[2023-05-23 12:10] VITALS: BP 126/65; TEMP 97.5; O2SAT 96
[2023-05-23 12:40] VITALS: BP 125/66; TEMP 97.5; O2SAT 96
[2023-05-23 13:40] VITALS: BP 137/82; TEMP 97.5; O2SAT 97
[2023-05-23 13:49] LABS: CALCIUM LEVEL 7.7 MG/DL (8.3-10.6); CREATININE FOR GFR 1.33 MG/DL (0.70-1.30); GLOMERULAR FILTRATION RATE 57.1 (>49); POTASSIUM SERUM 4.4 MMOL/L (3.5-5.1)
[2023-05-23 14:52] LABS: CALCIUM LEVEL 7.8 MG/DL (8.3-10.6); CREATININE FOR GFR 1.4 MG/DL (0.70-1.30); GLOMERULAR FILTRATION RATE 53.8 (>49); POTASSIUM SERUM 4.5 MMOL/L (3.5-5.1)
[2023-05-23] MEDS ORDERED: OXYC-517 PO (15:53)
[2023-05-23] MEDS ORDERED: OXYB5TAB11 PO (16:28)
== END 2023-05-23 16:39 | disposition home or self-care (01) | DRG 919 ==
LOC: M ED 20:21 → EDBD 20:21 → EEVIPCON 23:35 → M ED INP 23:35 → ENRESERV 23:50 → M PCU 05-13 01:59 → M MS5PR 05-13 12:37
PROVIDERS: ADMIT Internal Medicine; ATTEND General Practice
PROC: 0W9G3ZZ Drainage of Peritoneal Cavity, Percutaneous Approach (ICD-10-PCS; principal; 2023-05-14 15:00)
PROC: 0WPGX0Z Removal of Drainage Device from Peritoneal Cavity, External Approach (ICD-10-PCS; 2023-05-22)
DX: T85.71XA Infection and inflammatory reaction due to peritoneal dialysis catheter, initial encounter (principal); K65.0 Generalized (acute) peritonitis; K76.6 Portal hypertension; N17.9 Acute kidney failure, unspecified; I85.10 Secondary esophageal varices without bleeding; E87.1 Hypo-osmolality and hyponatremia; D68.9 Coagulation defect, unspecified; K70.31 Alcoholic cirrhosis of liver with ascites; K40.90 Unilateral inguinal hernia, without obstruction or gangrene, not specified as recurrent; I10 Essential (primary) hypertension; E87.5 Hyperkalemia; R00.0 Tachycardia, unspecified; D69.59 Other secondary thrombocytopenia; D63.8 Anemia in other chronic diseases classified elsewhere; E83.51 Hypocalcemia; K70.11 Alcoholic hepatitis with ascites; I45.6 Pre-excitation syndrome; Z87.891 Personal history of nicotine dependence; B95.62 Methicillin resistant Staphylococcus aureus infection as the cause of diseases classified elsewhere; Z91.119 Patient's noncompliance with dietary regimen due to unspecified reason; Z79.899 Other long term (current) drug therapy; F12.90 Cannabis use, unspecified, uncomplicated; M25.811 Other specified joint disorders, right shoulder; Y84.1 Kidney dialysis as the cause of abnormal reaction of the patient, or of later complication, without mention of misadventure at the time of the procedure

== ENCOUNTER → 2023-08-02 | Outpatient (CLI) | payer MEDICARE, MEDICAID ==
[~2023-08-02] MED LIST changes: +CARA1TAB6 PO; +LINE1TAB6 PO; +OXYC-517 PO; +SELF1KIT MC
[2023-08-02 16:04] LABS: BASO # 0.1 10^3/uL (0.0-0.2); BASO % 0.9 % (0.0-1.0); EOS # 0.1 10^3/uL (0.0-0.5); EOS % 2.2 % (0.0-3.0); HEMATOCRIT 39.2 % (42.0-52.0); HEMOGLOBIN 13.2 g/dl (13.5-17.5); LYMPH # 0.9 10^3/uL (1.5-5.0); LYMPH % 13.7 % (24.0-44.0); MEAN CORPUSCULAR HEMOGLOBIN 29.9 pg (27.0-33.0); MEAN CORPUSCULAR HGB CONC 33.7 g/dl (32.0-36.5); MEAN CORPUSCULAR VOLUME 88.9 fl (80.0-96.0); MONO # 0.5 10^3/uL (0.0-0.8); MONO % 7.9 % (2.0-8.0); NEUTROPHILS # 4.9 10^3/uL (1.5-8.5); PLATELET COUNT, AUTOMATED 111 10^3/uL (150-450); RED BLOOD COUNT 4.41 10^6/uL (4.30-6.10); WHITE BLOOD COUNT 6.5 10^3/uL (4.0-10.0)
[2023-08-02 16:33] LABS: ALBUMIN 3.1 G/DL (3.2-5.2); ALKALINE PHOSPHATASE 218 U/L (46-116); ALT/SGPT 34 U/L (7.0-40); AST/SGOT 43 U/L (<34); BILIRUBIN,TOTAL 1.4 MG/DL (0.3-1.2); BLOOD UREA NITROGEN 20 MG/DL (9-23); CALCIUM LEVEL 8.6 MG/DL (8.3-10.6); CARBON DIOXIDE LEVEL 28 MMOL/L (20-31); CHLORIDE LEVEL 103 MMOL/L (98-107); CREATININE FOR GFR 1.06 MG/DL (0.70-1.30); GLOMERULAR FILTRATION RATE > 60.0 (>49); GLUCOSE, FASTING 102 MG/DL (74-106); POTASSIUM SERUM 4.4 MMOL/L (3.5-5.1); SODIUM LEVEL 136 MMOL/L (136-145); TOTAL PROTEIN 6.6 G/DL (5.7-8.2)
== END ==
LOC: M PLALAB 12:51
PROVIDERS: ATTEND Internal Medicine Infectious Disease
DX: K70.31 Alcoholic cirrhosis of liver with ascites (principal); B18.2 Chronic viral hepatitis C

== ENCOUNTER 2023-10-03 13:21 | Emergency (ER) | payer MEDICARE, MEDICAID ==
[~2023-10-03] VITALS: Ht 190.5 cm; Wt 102.7 kg
[~2023-10-03 13:21] MED LIST changes: -ASPI-161 PO; +ASPI-615 PO; -OXYB5TAB11 PO; +OXYB5TAB14 PO
[2023-10-03 13:39] VITALS: TEMP 98.7
[2023-10-03 14:16] LABS: C REACTIVE PROTEIN QUANTITATIV < 0.40 MG/DL (<1.0)
[2023-10-03] MEDS: dexAMETHasone 20MG/5ML VIAL IV ONE (14:17)
[2023-10-03] MEDS: KETOROLAC 30 MG/ML 1ML VIAL IV ONE (14:17)
[2023-10-03] MEDS: CYCLOBENZAPRINE 10MG TABLET PO ONE (14:17)
[2023-10-03 14:19] LABS: ALBUMIN 3.5 G/DL (3.2-5.2); ALKALINE PHOSPHATASE 126 U/L (46-116); ALT/SGPT 35 U/L (7.0-40); AST/SGOT 42 U/L (<34); BILIRUBIN,TOTAL 2.7 MG/DL (0.3-1.2); BLOOD UREA NITROGEN 28 MG/DL (9-23); CALCIUM LEVEL 9.2 MG/DL (8.3-10.6); CARBON DIOXIDE LEVEL 22 MMOL/L (20-31); CHLORIDE LEVEL 106 MMOL/L (98-107); CREATININE FOR GFR 1.23 MG/DL (0.70-1.30); GLOMERULAR FILTRATION RATE > 60.0 (>49); GLUCOSE, FASTING 102 MG/DL (74-106); MAGNESIUM LEVEL 1.6 MG/DL (1.8-2.4); POTASSIUM SERUM 4.4 MMOL/L (3.5-5.1); SODIUM LEVEL 135 MMOL/L (136-145); TOTAL PROTEIN 6.7 G/DL (5.7-8.2)
[2023-10-03 14:29] LABS: BASO # 0.1 10^3/uL (0.0-0.2); BASO % 0.8 % (0.0-1.0); EOS # 0.1 10^3/uL (0.0-0.5); EOS % 1.1 % (0.0-3.0); HEMATOCRIT 42.7 % (42.0-52.0); HEMOGLOBIN 15.2 g/dl (13.5-17.5); LYMPH # 0.8 10^3/uL (1.5-5.0); LYMPH % 13.1 % (24.0-44.0); MEAN CORPUSCULAR HEMOGLOBIN 30.2 pg (27.0-33.0); MEAN CORPUSCULAR HGB CONC 35.6 g/dl (32.0-36.5); MEAN CORPUSCULAR VOLUME 84.9 fl (80.0-96.0); MONO # 0.5 10^3/uL (0.0-0.8); MONO % 8.1 % (2.0-8.0); NEUTROPHILS # 4.8 10^3/uL (1.5-8.5); NEUTROPHILS % 76.6 % (36.0-66.0); RED BLOOD COUNT 5.03 10^6/uL (4.30-6.10); WHITE BLOOD COUNT 6.3 10^3/uL (4.0-10.0)
[2023-10-03 14:32] LABS: INR 1.14; PROTHROMBIN TIME 14.2 SECONDS (12.5-14.5)
[2023-10-03] MEDS: MAG SULF 1GM/100ML (MAG RUN) 1 GM in IV 1 EA IV ONE (14:59)
[2023-10-03 15:02] LABS: PLATELET COUNT, AUTOMATED 98 10^3/uL (150-450)
[2023-10-03] MEDS: GABAPENTIN 300 MG CAP PO ONE (16:25)
[2023-10-03] MEDS: MORPHINE 4 MG/ML 1ML VIAL IV ONE ×2 (16:25→20:35)
[2023-10-03] MEDS ORDERED: NEUR300C PO (20:11)
[2023-10-03] MEDS ORDERED: OXYC1TAB23 PO (20:11)
[2023-10-03 20:30] VITALS: BP 132/65; O2SAT 94
== END 2023-10-03 20:47 | disposition home or self-care (01) ==
LOC: EDBD 13:21 → M ED 13:21
DX: M51.26 Other intervertebral disc displacement, lumbar region (principal); M51.36 Other intervertebral disc degeneration, lumbar region; M48.061 Spinal stenosis, lumbar region without neurogenic claudication; M50.30 Other cervical disc degeneration, unspecified cervical region; M25.78 Osteophyte, vertebrae; I10 Essential (primary) hypertension; K21.9 Gastro-esophageal reflux disease without esophagitis; K74.4 Secondary biliary cirrhosis; Z79.82 Long term (current) use of aspirin; Z79.52 Long term (current) use of systemic steroids; Z79.891 Long term (current) use of opiate analgesic; Z79.810 Long term (current) use of selective estrogen receptor modulators (SERMs); Z79.899 Other long term (current) drug therapy
CPT/HCPCS: 70450; 72125; 72131; 72148; 72192; 80053; 83735; 85025; 85049; 85055; 85610; 86140; 96365; 96366; 96375; 99284; J1100; J1885; J3475

== ENCOUNTER → 2023-10-25 | Outpatient (REF) | payer MEDICARE, MEDICAID ==
[~2023-10-25] MED LIST changes: +NEUR300C PO; +OXYC1TAB23 PO
[2023-10-25 18:17] LABS: AMORPHOUS SEDIMENT SMALL (NEGATIVE); APPEARANCE, URINE TURBID (CLEAR); BACTERIA, URINE AUTO NEGATIVE (NEGATIVE); BILIRUBIN, URINE AUTO NEGATIVE (NEGATIVE); BLOOD, URINE BLOOD 3+ (NEGATIVE); CALCIUM OXALATE CRYSTALS SMALL; COLOR, URINE AMBER (YELLOW); GLUCOSE, URINE (UA) AUTO NEGATIVE (NEGATIVE); KETONE, URINE AUTO NEGATIVE (NEGATIVE); LEUKOCYTE ESTERASE, URINE AUTO 2+ (NEGATIVE); MUCUS, URINE SMALL (NEGATIVE); NITRITE, URINE AUTO NEGATIVE (NEGATIVE); PROTEIN, URINE AUTO 1+ mg/dL (NEGATIVE); RBC, URINE AUTO TNTC /HPF (0-3); SPECIFIC GRAVITY URINE AUTO 1.021 (1.002-1.035); SQUAMOUS EPITHELIAL CELL UR AU 3 /HPF (0-6); UROBILINOGEN, URINE AUTO 0.2 mg/dL (0.0-2.0); WBC, URINE AUTO 53 /HPF (0-3)
== END ==
LOC: M SMT 16:53
PROVIDERS: ATTEND Physician Assistant
DX: R30.0 Dysuria (principal)

== ENCOUNTER → 2023-12-31 | Outpatient (CLI) | payer MEDICARE, MEDICAID | LOC: M RAD 06:33 | PROVIDERS: ATTEND Internal Medicine Gastroenterology | DX: K70.31 Alcoholic cirrhosis of liver with ascites (principal) ==

== ENCOUNTER → 2024-01-04 | Outpatient (CLI) | payer MEDICARE, MEDICAID ==
[2024-01-04 12:44] LABS: BASO # 0.1 10^3/uL (0.0-0.2); EOS # 0.1 10^3/uL (0.0-0.5); EOS % 2.7 % (0.0-3.0); HEMATOCRIT 40.2 % (42.0-52.0); HEMOGLOBIN 13.9 g/dl (13.5-17.5); LYMPH # 0.7 10^3/uL (1.5-5.0); LYMPH % 14.6 % (24.0-44.0); MEAN CORPUSCULAR HEMOGLOBIN 31.7 pg (27.0-33.0); MEAN CORPUSCULAR HGB CONC 34.6 g/dl (32.0-36.5); MEAN CORPUSCULAR VOLUME 91.6 fl (80.0-96.0); MONO # 0.5 10^3/uL (0.0-0.8); MONO % 9.4 % (2.0-8.0); NEUTROPHILS # 3.5 10^3/uL (1.5-8.5); NEUTROPHILS % 72.1 % (36.0-66.0); RED BLOOD COUNT 4.39 10^6/uL (4.30-6.10); WHITE BLOOD COUNT 4.8 10^3/uL (4.0-10.0)
[2024-01-04 12:59] LABS: INR 1.13; PROTHROMBIN TIME 14.2 SECONDS (12.5-14.5)
[2024-01-04 13:08] LABS: PLATELET COUNT, AUTOMATED 66 10^3/uL (150-450)
[2024-01-04 13:16] LABS: ALBUMIN 3.8 G/DL (3.2-5.2); ALKALINE PHOSPHATASE 156 U/L (46-116); ALT/SGPT 48 U/L (7.0-40); AST/SGOT 52 U/L (<34); BILIRUBIN,DIRECT 0.8 MG/DL (<0.4); BILIRUBIN,TOTAL 1.8 MG/DL (0.3-1.2); BLOOD UREA NITROGEN 24 MG/DL (9-23); CREATININE FOR GFR 1.28 MG/DL (0.70-1.30); GLOMERULAR FILTRATION RATE 59.5 (>49); TOTAL PROTEIN 6.5 G/DL (5.7-8.2)
== END ==
LOC: M LAB 12:12
PROVIDERS: ATTEND Internal Medicine Gastroenterology
DX: K70.31 Alcoholic cirrhosis of liver with ascites (principal)

== ENCOUNTER → 2024-01-16 | Outpatient (REF) | payer MEDICARE, MEDICAID ==
[2024-01-16 18:15] LABS: APPEARANCE, URINE CLEAR (CLEAR); BACTERIA, URINE AUTO 1+ (NEGATIVE); BILIRUBIN, URINE AUTO NEGATIVE (NEGATIVE); BLOOD, URINE BLOOD NEGATIVE (NEGATIVE); COLOR, URINE YELLOW (YELLOW); GLUCOSE, URINE (UA) AUTO NEGATIVE (NEGATIVE); KETONE, URINE AUTO NEGATIVE (NEGATIVE); LEUKOCYTE ESTERASE, URINE AUTO TRACE (NEGATIVE); NITRITE, URINE AUTO NEGATIVE (NEGATIVE); PROTEIN, URINE AUTO NEGATIVE (NEGATIVE); RBC, URINE AUTO 0 /HPF (0-3); SPECIFIC GRAVITY URINE AUTO 1.009 (1.002-1.035); SQUAMOUS EPITHELIAL CELL UR AU 0 /HPF (0-6); UROBILINOGEN, URINE AUTO 0.2 mg/dL (0.0-2.0); WBC, URINE AUTO 7 /HPF (0-3)
== END ==
LOC: M SMT 17:00
PROVIDERS: ATTEND Physician Assistant
DX: R32 Unspecified urinary incontinence (principal)

== ENCOUNTER → 2024-01-16 | Outpatient (CLI) | payer MEDICARE, MEDICAID ==
[~2024-01-16] MED LIST changes: +PROHANCE 279.3MG/ML 15ML VIAL ONE; +PROHANCE 279.3MG/ML 5ML VIAL ONE
== END ==
LOC: M PLAIMG 09:06
PROVIDERS: ATTEND Internal Medicine Gastroenterology
DX: D37.6 Neoplasm of uncertain behavior of liver, gallbladder and bile ducts (principal); K70.31 Alcoholic cirrhosis of liver with ascites; B18.2 Chronic viral hepatitis C

== ENCOUNTER → 2024-01-24 | Outpatient (CLI) | payer MEDICARE, MEDICAID ==
[~2024-01-24] MED LIST changes: +ISOVUE-370 76% 100ML VIAL As Ordered ONE; -PROHANCE 279.3MG/ML 15ML VIAL ONE; -PROHANCE 279.3MG/ML 5ML VIAL ONE
== END ==
LOC: M RAD 17:16
PROVIDERS: ATTEND Family Medicine Addiction Medicine
DX: R16.0 Hepatomegaly, not elsewhere classified (principal); K76.6 Portal hypertension; K70.31 Alcoholic cirrhosis of liver with ascites
CPT/HCPCS: 36415; 74170; 81256; 83550; Q9967

== ENCOUNTER → 2024-01-24 | Outpatient (CLI) | payer MEDICAID, MEDICARE ==
[~2024-01-24] MED LIST changes: -ISOVUE-370 76% 100ML VIAL As Ordered ONE
[2024-01-24 09:38] LABS: PERCENT SATURATION 22.2 % (19.7-50.0)
== END ==
LOC: M LAB 08:19
PROVIDERS: ATTEND Internal Medicine Gastroenterology
DX: K70.31 Alcoholic cirrhosis of liver with ascites (principal)

== ENCOUNTER 2024-03-31 09:08 | Day surgery (SDC) | payer MEDICARE, MEDICAID ==
[~2024-03-31] VITALS: Ht 193 cm; Wt 107.0 kg
[~2024-03-31 09:08] MED LIST changes: +GABA-1172 PO; +MAGN400T35 PO; +NS 1,000 ML IV ONE
[2024-03-31] MEDS ORDERED: propofoL 200 MG/20 ML VIAL As Ordered ONE (10:14)
[2024-03-31 11:20] VITALS: BP 117/70; O2SAT 97
== END 2024-03-31 11:27 | disposition home or self-care (01) ==
LOC: M OPP 09:08
PROVIDERS: ATTEND Internal Medicine Gastroenterology
DX: K74.60 Unspecified cirrhosis of liver (principal); I85.10 Secondary esophageal varices without bleeding; K31.89 Other diseases of stomach and duodenum; K76.6 Portal hypertension

== ENCOUNTER → 2024-04-10 | Outpatient (REF) | payer MEDICARE, MEDICAID ==
[~2024-04-10] MED LIST changes: -NS 1,000 ML IV ONE
[2024-04-10 18:31] LABS: APPEARANCE, URINE HAZY (CLEAR); BACTERIA, URINE AUTO 1+ (NEGATIVE); BILIRUBIN, URINE AUTO NEGATIVE (NEGATIVE); BLOOD, URINE BLOOD NEGATIVE (NEGATIVE); COLOR, URINE YELLOW (YELLOW); GLUCOSE, URINE (UA) AUTO NEGATIVE (NEGATIVE); KETONE, URINE AUTO NEGATIVE (NEGATIVE); LEUKOCYTE ESTERASE, URINE AUTO 3+ (NEGATIVE); NITRITE, URINE AUTO POSITIVE (NEGATIVE); PROTEIN, URINE AUTO NEGATIVE (NEGATIVE); RBC, URINE AUTO 6 /HPF (0-3); SQUAMOUS EPITHELIAL CELL UR AU 2 /HPF (0-6); UROBILINOGEN, URINE AUTO 0.2 mg/dL (0.0-2.0); WBC, URINE AUTO 98 /HPF (0-3)
== END ==
LOC: M SMT 17:09
PROVIDERS: ATTEND Physician Assistant
DX: R30.0 Dysuria (principal)

== ENCOUNTER → 2024-05-08 | Outpatient (REF) | payer MEDICARE, MEDICAID ==
[2024-05-08 18:20] LABS: APPEARANCE, URINE MANUAL HAZY (CLEAR); COLOR, URINE MANUAL YELLOW (YELLOW)
[2024-05-08 18:21] LABS: BILIRUBIN, URINE MANUAL NEGATIVE (NEGATIVE); BLOOD URINE MANUAL POSITIVE (NEGATIVE); GLUCOSE, URINE (UA) MANUAL NEGATIVE (NEGATIVE); KETONE, URINE MANUAL 1+ mg/dL (NEGATIVE); LEUKOCYTE ESTERASE, URINE MAN POSITIVE (NEGATIVE); NITRITE, URINE MANUAL POSITIVE (NEGATIVE); PROTEIN, URINE MANUAL 1+ mg/dL (NEGATIVE); UROBILINOGEN, URINE MANUAL NORMAL (NORMAL)
[2024-05-08 18:46] LABS: WBC, URINE 15-20 /hpf (0-3)
[2024-05-08 18:47] LABS: BACTERIA, URINE LARGE AMOUNT; MUCUS, URINE SMALL AMOUNT (NEGATIVE); RENAL EPITHELIAL CELLS, URINE SMALL AMOUNT /hpf; SQUAMOUS EPITHELIAL CELL URINE SMALL AMOUNT /hpf (SMALL AMT); TRANSITIONAL EPI CELLS, URINE MOD AMOUNT /hpf
[2024-05-08 18:48] LABS: HYALINE CAST, URINE 0-1 /lpf (0-1)
== END ==
LOC: M SMT 17:45
PROVIDERS: ATTEND Physician Assistant
DX: R30.0 Dysuria (principal)

== ENCOUNTER → 2024-08-08 | Outpatient (CLI) | payer MEDICARE, MEDICAID ==
[~2024-08-08] MED LIST changes: +PROHANCE 279.3MG/ML 15ML VIAL ONE; +PROHANCE 279.3MG/ML 5ML VIAL ONE
[2024-08-08 14:53] LABS: BASO # 0.1 10^3/uL (0.0-0.2); BASO % 0.8 % (0.0-1.0); EOS # 0.1 10^3/uL (0.0-0.5); EOS % 1.4 % (0.0-3.0); HEMATOCRIT 44.4 % (42.0-52.0); LYMPH # 0.7 10^3/uL (1.5-5.0); LYMPH % 10.7 % (24.0-44.0); MEAN CORPUSCULAR HEMOGLOBIN 31.3 pg (27.0-33.0); MEAN CORPUSCULAR HGB CONC 33.8 g/dl (32.0-36.5); MEAN CORPUSCULAR VOLUME 92.7 fl (80.0-96.0); MONO # 0.5 10^3/uL (0.0-0.8); MONO % 7.6 % (2.0-8.0); NEUTROPHILS % 79.2 % (36.0-66.0); RED BLOOD COUNT 4.79 10^6/uL (4.30-6.10); WHITE BLOOD COUNT 6.3 10^3/uL (4.0-10.0)
[2024-08-08 15:04] LABS: ALBUMIN 3.6 G/DL (3.2-5.2); ALKALINE PHOSPHATASE 155 U/L (40-129); ALT/SGPT 36 U/L (7.0-40); AST/SGOT 36 U/L (<34); BILIRUBIN,DIRECT 0.5 MG/DL (<0.4); BILIRUBIN,TOTAL 1.2 MG/DL (0.3-1.2); BLOOD UREA NITROGEN 23 MG/DL (9-23); CREATININE FOR GFR 1.11 MG/DL (0.70-1.30); GLOMERULAR FILTRATION RATE > 60.0 (>49); TOTAL PROTEIN 6.8 G/DL (5.7-8.2)
[2024-08-08 15:11] LABS: PLATELET COUNT, AUTOMATED 73 10^3/uL (150-450)
[2024-08-08 15:14] LABS: INR 1.12; PROTHROMBIN TIME 14.7 SECONDS (12.5-14.5)
== END ==
LOC: M PLAIMG 12:10
PROVIDERS: ATTEND Internal Medicine Gastroenterology
DX: D37.6 Neoplasm of uncertain behavior of liver, gallbladder and bile ducts (principal); K70.31 Alcoholic cirrhosis of liver with ascites
CPT/HCPCS: 36415; 74183; 80076; 82105; 82565; 84520; 85025; 85049; 85055; 85610; A9576

== ENCOUNTER → 2024-08-29 | Outpatient (REF) | payer MEDICARE, MEDICAID ==
[~2024-08-29] MED LIST changes: -PROHANCE 279.3MG/ML 15ML VIAL ONE; -PROHANCE 279.3MG/ML 5ML VIAL ONE
[2024-08-29 18:47] LABS: APPEARANCE, URINE MANUAL HAZY (CLEAR); COLOR, URINE MANUAL YELLOW (YELLOW)
[2024-08-29 18:49] LABS: BILIRUBIN, URINE MANUAL NEGATIVE (NEGATIVE); GLUCOSE, URINE (UA) MANUAL NEGATIVE (NEGATIVE); KETONE, URINE MANUAL NEGATIVE (NEGATIVE); PROTEIN, URINE MANUAL TRACE mg/dL (NEGATIVE); UROBILINOGEN, URINE MANUAL NORMAL (NORMAL)
[2024-08-29 18:50] LABS: NITRITE, URINE MANUAL NEGATIVE (NEGATIVE)
[2024-08-29 18:53] LABS: LEUKOCYTE ESTERASE, URINE MAN POSITIVE (NEGATIVE)
[2024-08-29 18:54] LABS: BLOOD URINE MANUAL POSITIVE (NEGATIVE)
[2024-08-29 18:57] LABS: BACTERIA, URINE SMALL AMOUNT; HYALINE CAST, URINE 0-1 /lpf (0-1); SQUAMOUS EPITHELIAL CELL URINE SMALL AMOUNT /hpf (SMALL AMT)
[2024-08-29 18:58] LABS: MUCUS, URINE SMALL AMOUNT (NEGATIVE)
== END ==
LOC: M SMT 17:24
PROVIDERS: ATTEND Physician Assistant
DX: R39.9 Unspecified symptoms and signs involving the genitourinary system (principal)

== ENCOUNTER → 2024-10-24 | Outpatient (REF) | payer MEDICARE, MEDICAID ==
[~2024-10-24] MED LIST changes: +THERTAB52 PO
[2024-10-24 17:49] LABS: APPEARANCE, URINE HAZY (CLEAR); BACTERIA, URINE AUTO 1+ (NEGATIVE); BILIRUBIN, URINE AUTO NEGATIVE (NEGATIVE); BLOOD, URINE BLOOD 3+ (NEGATIVE); COLOR, URINE AMBER (YELLOW); GLUCOSE, URINE (UA) AUTO NEGATIVE (NEGATIVE); KETONE, URINE AUTO NEGATIVE (NEGATIVE); LEUKOCYTE ESTERASE, URINE AUTO 2+ (NEGATIVE); NITRITE, URINE AUTO NEGATIVE (NEGATIVE); PROTEIN, URINE AUTO 1+ mg/dL (NEGATIVE); RBC, URINE AUTO TNTC /HPF (0-3); SPECIFIC GRAVITY URINE AUTO 1.019 (1.002-1.035); SQUAMOUS EPITHELIAL CELL UR AU 4 /HPF (0-6); WBC, URINE AUTO 18 /HPF (0-3)
== END ==
LOC: M SMT 16:51
PROVIDERS: ATTEND Physician Assistant
DX: R39.9 Unspecified symptoms and signs involving the genitourinary system (principal)

== ENCOUNTER 2024-12-31 10:05 | Emergency (ER) | payer MEDICARE, MEDICAID ==
[~2024-12-31] VITALS: Ht 190.5 cm; Wt 115.0 kg
[2024-12-31 10:50] LABS: BASO # 0.0 10^3/uL (0.0-0.2); BASO % 0.1 % (0.0-1.0); EOS # 0.0 10^3/uL (0.0-0.5); EOS % 0.0 % (0.0-3.0); LYMPH # 0.3 10^3/uL (1.5-5.0); LYMPH % 4.0 % (24.0-44.0); MONO # 0.6 10^3/uL (0.0-0.8); MONO % 9.4 % (2.0-8.0); NEUTROPHILS # 5.9 10^3/uL (1.5-8.5); NEUTROPHILS % 86.2 % (36.0-66.0)
[2024-12-31 11:22] LABS: ALT/SGPT 32.0 U/L (7.0-40); AST/SGOT 33.0 U/L (<34); CALCIUM LEVEL 8.1 MG/DL (8.3-10.6); CARBON DIOXIDE LEVEL 21.0 MMOL/L (20-31); CHLORIDE LEVEL 98.0 MMOL/L (98-107); CREATININE FOR GFR 1.76 MG/DL (0.70-1.30); GLOMERULAR FILTRATION RATE 41.3 (>49); PLATELET COUNT, AUTOMATED 39 10^3/uL (150-450); POTASSIUM SERUM 3.8 MMOL/L (3.5-5.1); SODIUM LEVEL 131.0 MMOL/L (136-145)
[2024-12-31] MEDS ORDERED: OCTREOTIDE ACETATE 1,200 MCG in NS 238.8 ML IV SCH (12:40)
[2024-12-31] MEDS ORDERED: ISOVUE-370 76% 100 ML VIAL As Ordered ONE (12:51)
[2024-12-31] MEDS: ONDANSETRON 4MG 2ML VIAL IV ONE (13:09)
[2024-12-31] MEDS: MORPHINE 2 MG/ML 1 ML VIAL IV PRN (13:10)
[2024-12-31] MEDS: PANTOPRAZOLE 40MG VIAL IV ONE (13:12)
[2024-12-31] MEDS ORDERED: ONDA-282 SL (13:24)
[2024-12-31] MEDS ORDERED: SPIR1CAP INH (13:25)
[2024-12-31] MEDS ORDERED: HOME MED LIST COMPLETE! XX SCH (13:25)
[2024-12-31] MEDS: cefTRIAXone SOD 1 GM in DEXTROSE 5% (D5W) ADV/MINI-BAG 50 ML IV ONE (13:29)
[2024-12-31] MEDS: OCTREOTIDE ACETATE 100MCG/ML VIAL **IV ADMINISTRATION ONLY IV ONE (13:40)
[2024-12-31] MEDS: OCTREOTIDE ACETATE 1,200 MCG in NS 238.8 ML IV SCH (13:46)
[2024-12-31 13:47] LABS: KETONE, URINE AUTO RFX NEGATIVE (NEGATIVE); MUCUS, URINE RFX SMALL (NEGATIVE); RBC, URINE AUTO RFX 3 /HPF (0-3); SQUAM EPITHELIAL CELL UR AURFX 0 /HPF (0-6)
[2024-12-31 13:55] LABS: INR 1.14
[2024-12-31 14:00] LABS: LEUKOCYTE ESTERASE UR AUTO RFX 3+ (NEGATIVE); NITRITE, URINE AUTO RFX POSITIVE (NEGATIVE); WBC, URINE AUTO RFX 97 /HPF (0-3)
[2024-12-31] MEDS: NS (Normal Saline) 0.9% 1,000 ML IV SCH (15:01)
[2024-12-31] MEDS: ACETAMINOPHEN *IV* 500 MG in IV 1 EA IV ONE (16:06)
[2024-12-31] MEDS ORDERED: NS 500 ML IV ONE (17:15)
[2024-12-31 17:37] VITALS: BP 98/54; TEMP 97.9; O2SAT 95
== END 2024-12-31 17:53 | disposition left against medical advice (07) ==
LOC: EDBD 10:05 → M ED 10:05
DX: K92.2 Gastrointestinal hemorrhage, unspecified (principal); K70.31 Alcoholic cirrhosis of liver with ascites; R16.1 Splenomegaly, not elsewhere classified; I10 Essential (primary) hypertension; J44.9 Chronic obstructive pulmonary disease, unspecified; B19.20 Unspecified viral hepatitis C without hepatic coma; Z88.5 Allergy status to narcotic agent; Z79.82 Long term (current) use of aspirin; Z79.52 Long term (current) use of systemic steroids; Z79.83 Long term (current) use of bisphosphonates; Z79.899 Other long term (current) drug therapy
CPT/HCPCS: 71045; 71275; 74174; 80048; 80076; 81001; 82140; 83605; 83690; 85025; 85049; 85055; 85610; 85730; 86850; 86900; 86901; 87040; 87077; 87088; 87154; 87186; 87486; 87581; 87633; 87798; 93041; 96374; 96375; 96376; 99285; J0136; J0696; J2354; J2405; J2470; J2765; Q9967

== ENCOUNTER 2025-01-23 14:36 | Inpatient (IN) | payer MEDICARE, MEDICAID ==
[~2025-01-23] VITALS: Ht 190.5 cm; Wt 110.9 kg
[~2025-01-23 14:36] MED LIST changes: +ONDA-282 SL; +SPIR1CAP INH
[2025-01-23 15:29] LABS: BASO # 0.0 10^3/uL (0.0-0.2); BASO % 0.1 % (0.0-1.0); EOS # 0.0 10^3/uL (0.0-0.5); EOS % 0.1 % (0.0-3.0); LYMPH # 0.3 10^3/uL (1.5-5.0); LYMPH % 2.4 % (24.0-44.0); MONO # 0.8 10^3/uL (0.0-0.8); MONO % 7.7 % (2.0-8.0); NEUTROPHILS # 9.5 10^3/uL (1.5-8.5); NEUTROPHILS % 89.0 % (36.0-66.0)
[2025-01-23 15:32] LABS: PLATELET COUNT, AUTOMATED 34 10^3/uL (150-450)
[2025-01-23 15:39] LABS: ERYTHROCYTE SEDIMENTATION RATE 24 mm/hr (0-20)
[2025-01-23 15:42] LABS: INR 1.34
[2025-01-23 15:51] LABS: ALT/SGPT 32.0 U/L (7.0-40); AST/SGOT 36.0 U/L (<34); C REACTIVE PROTEIN QUANTITATIV 9.81 MG/DL (<1.0); CALCIUM LEVEL 7.9 MG/DL (8.3-10.6); CARBON DIOXIDE LEVEL 22.0 MMOL/L (20-31); CHLORIDE LEVEL 96.0 MMOL/L (98-107); CREATININE FOR GFR 2.04 MG/DL (0.70-1.30); GLOMERULAR FILTRATION RATE 34.6 (>49); POTASSIUM SERUM 3.8 MMOL/L (3.5-5.1); SODIUM LEVEL 130.0 MMOL/L (136-145)
[2025-01-23] MEDS: ONDANSETRON 4MG 2ML VIAL IV ONE ×2 (16:53→23:10)
[2025-01-23] MEDS: GASTROGRAFIN SOLUTION 30ML PO SCH (17:10)
[2025-01-23 19:11] LABS: KETONE, URINE AUTO RFX NEGATIVE (NEGATIVE); LEUKOCYTE ESTERASE UR AUTO RFX 1+ (NEGATIVE); NITRITE, URINE AUTO RFX NEGATIVE (NEGATIVE); RBC, URINE AUTO RFX 1 /HPF (0-3); SQUAM EPITHELIAL CELL UR AURFX 1 /HPF (0-6); WBC, URINE AUTO RFX 22 /HPF (0-3)
[2025-01-23] MEDS ORDERED: PROHANCE 279.3MG/ML 15ML VIAL As Ordered ONE (19:44)
[2025-01-23] MEDS ORDERED: PROHANCE 279.3MG/ML 5ML VIAL As Ordered ONE (19:44)
[2025-01-23] MEDS: IBUPROFEN 400 MG TAB PO ONE (20:28)
[2025-01-24] MEDS ORDERED: COLL1CAP PO (00:50)
[2025-01-24] MEDS ORDERED: HOME MED LIST COMPLETE! XX SCH (00:55)
[2025-01-24] MEDS: LACTULOSE 20 GM/30 ML SYRUP UDC PO ONE (00:57)
[2025-01-24] MEDS: cefTRIAXone SOD 1 GM in DEXTROSE 5% (D5W) ADV/MINI-BAG 50 ML IV SCH (00:57)
[2025-01-24] MEDS: NS (Normal Saline) 0.9% 1,000 ML IV SCH ×2 (01:44→11:28)
[2025-01-24 01:58] VITALS: BP 113/64; TEMP 97.3; O2SAT 98
[2025-01-24 02:30] LABS: AMPHETAMINES LEVEL URINE NEGATIVE (NEGATIVE); BARBITURATES URINE NEGATIVE (NEGATIVE); BENZODIAZEPINES URINE NEGATIVE (NEGATIVE); COCAINE METABOLITE URINE NEGATIVE (NEGATIVE); METHADONE URINE NEGATIVE (NEGATIVE); OPIATES URINE NEGATIVE (NEGATIVE)
[2025-01-24 02:31] LABS: PHENCYCLIDINE URINE NEGATIVE (NEGATIVE)
[2025-01-24 02:42] LABS: CANNABINOIDS URINE POSITIVE (NEGATIVE)
[2025-01-24] MEDS: ONDANSETRON 4MG 2ML VIAL IV PRN (04:51)
[2025-01-24] MEDS: ACETAMINOPHEN 325 MG TAB PO PRN (05:37)
[2025-01-24 06:46] VITALS: BP 97/57; TEMP 97.5; O2SAT 96
[2025-01-24 06:51] LABS: BASO # 0.0 10^3/uL (0.0-0.2); BASO % 0.2 % (0.0-1.0); EOS # 0.0 10^3/uL (0.0-0.5); EOS % 0.5 % (0.0-3.0); LYMPH # 0.3 10^3/uL (1.5-5.0); LYMPH % 4.3 % (24.0-44.0); MONO # 0.7 10^3/uL (0.0-0.8); MONO % 11.5 % (2.0-8.0); NEUTROPHILS # 5.4 10^3/uL (1.5-8.5); NEUTROPHILS % 83.2 % (36.0-66.0)
[2025-01-24 06:56] LABS: PLATELET COUNT, AUTOMATED 28 10^3/uL (150-450)
[2025-01-24 07:34] LABS: ALT/SGPT 30.0 U/L (7.0-40); AST/SGOT 28.0 U/L (<34); CALCIUM LEVEL 7.8 MG/DL (8.3-10.6); CARBON DIOXIDE LEVEL 24.0 MMOL/L (20-31); CHLORIDE LEVEL 98.0 MMOL/L (98-107); CREATININE FOR GFR 2.38 MG/DL (0.70-1.30); GLOMERULAR FILTRATION RATE 28.8 (>49); MAGNESIUM LEVEL 2.0 MG/DL (1.8-2.4); POTASSIUM SERUM 4.0 MMOL/L (3.5-5.1); SODIUM LEVEL 132.0 MMOL/L (136-145)
[2025-01-24] MEDS: LACTULOSE 20 GM/30 ML SYRUP UDC PO SCH (08:09)
[2025-01-24] MEDS: PANTOPRAZOLE 40MG VIAL IV SCH (08:09)
[2025-01-24] MEDS ORDERED: MIRALAX *UNIT DOSE* 17 GM PACKET PO SCH (09:00)
[2025-01-24] MEDS ORDERED: DOCUSATE SODIUM 100 MG CAPSULE PO SCH (09:00)
[2025-01-24 12:00] VITALS: BP_SYST 88; BP_SYST 96; BP_DIAS 88; BP_DIAS 96; TEMP 97.6; O2SAT 96
[2025-01-24] MEDS: MIDODRINE 5 MG TAB PO SCH (13:03)
[2025-01-24] MEDS: OCTREOTIDE ACETATE 100 MCG/ML VIAL **SC ADMINISTRATION ONLY SC SCH (14:22)
[2025-01-24] MEDS: MORPHINE 2 MG/ML 1 ML VIAL IV PRN (16:29)
[2025-01-24 20:37] VITALS: BP 118/65; TEMP 97.9; O2SAT 100
[2025-01-24] MEDS: cefTRIAXone SOD 2 GM in DEXTROSE 5% (D5W) ADV/MINI-BAG 50 ML IV SCH (22:44)
[2025-01-25] VITALS (7 sets, daily range): BP systolic 90–143; BP diastolic 50–76; TEMP 97.2–97.7; O2SAT 93–98
[2025-01-25] MEDS ORDERED: cefTRIAXone SOD 2 GM in DEXTROSE 5% (D5W) ADV/MINI-BAG 50 ML IV SCH
[2025-01-25] MEDS: ACETAMINOPHEN *IV* 1,000 MG in IV 1 EA IV ONE (03:34)
[2025-01-25] MEDS: TIOTROPIUM BROM 2.5MCG/ACTUATION 4GM INH INH SCH (07:30)
[2025-01-25 08:13] LABS: BASO # 0.0 10^3/uL (0.0-0.2); BASO % 0.2 % (0.0-1.0); EOS # 0.1 10^3/uL (0.0-0.5); EOS % 1.8 % (0.0-3.0); LYMPH # 0.3 10^3/uL (1.5-5.0); LYMPH % 5.7 % (24.0-44.0); MONO # 0.9 10^3/uL (0.0-0.8); MONO % 16.6 % (2.0-8.0); NEUTROPHILS # 4.1 10^3/uL (1.5-8.5); NEUTROPHILS % 75.0 % (36.0-66.0)
[2025-01-25 08:17] LABS: PLATELET COUNT, AUTOMATED 28 10^3/uL (150-450)
[2025-01-25 08:54] LABS: ALT/SGPT 22.0 U/L (7.0-40); AST/SGOT 20.0 U/L (<34); CALCIUM LEVEL 7.4 MG/DL (8.3-10.6); CARBON DIOXIDE LEVEL 24.0 MMOL/L (20-31); CHLORIDE LEVEL 97.0 MMOL/L (98-107); CREATININE FOR GFR 2.5 MG/DL (0.70-1.30); GLOMERULAR FILTRATION RATE 27.1 (>49); MAGNESIUM LEVEL 2.2 MG/DL (1.8-2.4); POTASSIUM SERUM 4.1 MMOL/L (3.5-5.1); SODIUM LEVEL 131.0 MMOL/L (136-145)
[2025-01-26 01:02] VITALS: BP 108/70; TEMP 97.5; O2SAT 95
[2025-01-26 01:35] VITALS: BP 126/74; TEMP 97.5; O2SAT 95
[2025-01-26 03:45] VITALS: BP 125/75; TEMP 97.3; O2SAT 97
[2025-01-26 05:55] VITALS: BP 123/73; TEMP 97.3; O2SAT 96
[2025-01-26 07:30] LABS: BASO # 0.0 10^3/uL (0.0-0.2); BASO % 0.2 % (0.0-1.0); EOS # 0.1 10^3/uL (0.0-0.5); EOS % 3.1 % (0.0-3.0); LYMPH # 0.4 10^3/uL (1.5-5.0); LYMPH % 9.2 % (24.0-44.0); MONO # 0.7 10^3/uL (0.0-0.8); MONO % 15.8 % (2.0-8.0); NEUTROPHILS # 3.3 10^3/uL (1.5-8.5); NEUTROPHILS % 71.3 % (36.0-66.0)
[2025-01-26 07:38] LABS: PLATELET COUNT, AUTOMATED 33 10^3/uL (150-450)
[2025-01-26 07:46] LABS: ALT/SGPT 17.0 U/L (7.0-40); AST/SGOT 16.0 U/L (<34); CALCIUM LEVEL 7.6 MG/DL (8.3-10.6); CARBON DIOXIDE LEVEL 23.0 MMOL/L (20-31); CHLORIDE LEVEL 104.0 MMOL/L (98-107); CREATININE FOR GFR 1.97 MG/DL (0.70-1.30); GLOMERULAR FILTRATION RATE 36.1 (>49); MAGNESIUM LEVEL 2.4 MG/DL (1.8-2.4); POTASSIUM SERUM 4.1 MMOL/L (3.5-5.1); SODIUM LEVEL 137.0 MMOL/L (136-145)
[2025-01-26 12:00] VITALS: BP 99/67; TEMP 97.6; O2SAT 98
[2025-01-26 19:41] VITALS: BP 123/71; TEMP 97.2; O2SAT 98
[2025-01-27 05:08] VITALS: BP 112/53; TEMP 97.5; O2SAT 97
[2025-01-27 07:56] LABS: BASO # 0.0 10^3/uL (0.0-0.2); BASO % 0.5 % (0.0-1.0); EOS # 0.1 10^3/uL (0.0-0.5); EOS % 2.8 % (0.0-3.0); LYMPH # 0.5 10^3/uL (1.5-5.0); LYMPH % 11.1 % (24.0-44.0); MONO # 0.7 10^3/uL (0.0-0.8); MONO % 17.0 % (2.0-8.0); NEUTROPHILS # 2.9 10^3/uL (1.5-8.5); NEUTROPHILS % 67.9 % (36.0-66.0)
[2025-01-27 07:58] LABS: PLATELET COUNT, AUTOMATED 41 10^3/uL (150-450)
[2025-01-27 08:22] LABS: ALT/SGPT 21.0 U/L (7.0-40); AST/SGOT 25.0 U/L (<34); CALCIUM LEVEL 7.8 MG/DL (8.3-10.6); CARBON DIOXIDE LEVEL 23.0 MMOL/L (20-31); CHLORIDE LEVEL 105.0 MMOL/L (98-107); CREATININE FOR GFR 1.49 MG/DL (0.70-1.30); GLOMERULAR FILTRATION RATE 50.5 (>49); MAGNESIUM LEVEL 2.4 MG/DL (1.8-2.4); POTASSIUM SERUM 4.0 MMOL/L (3.5-5.1); SODIUM LEVEL 139.0 MMOL/L (136-145)
[2025-01-27 12:00] VITALS: BP 97/57; TEMP 97.6; O2SAT 98
[2025-01-27 12:08] VITALS: BP 140/66
[2025-01-27] MEDS ORDERED: LEVO1TAB40 PO (12:38)
== END 2025-01-27 15:27 | disposition home or self-care (01) | DRG 699 ==
LOC: M ED 14:36 → M ED INP 22:46 → EEVIPCON 22:46 → M MS5PR 01-24 01:52
PROVIDERS: ADMIT Internal Medicine; ATTEND General Practice
PROC: 30233J1 Transfusion of Nonautologous Serum Albumin into Peripheral Vein, Percutaneous Approach (ICD-10-PCS; principal; 2025-01-25)
DX: T83.511A Infection and inflammatory reaction due to indwelling urethral catheter, initial encounter (principal); R78.81 Bacteremia; R18.8 Other ascites; I85.10 Secondary esophageal varices without bleeding; E87.1 Hypo-osmolality and hyponatremia; K76.6 Portal hypertension; N17.9 Acute kidney failure, unspecified; I77.4 Celiac artery compression syndrome; Y84.6 Urinary catheterization as the cause of abnormal reaction of the patient, or of later complication, without mention of misadventure at the time of the procedure; K74.60 Unspecified cirrhosis of liver; I12.9 Hypertensive chronic kidney disease with stage 1 through stage 4 chronic kidney disease, or unspecified chronic kidney disease; R33.9 Retention of urine, unspecified; E87.8 Other disorders of electrolyte and fluid balance, not elsewhere classified; K52.9 Noninfective gastroenteritis and colitis, unspecified; N40.1 Benign prostatic hyperplasia with lower urinary tract symptoms; R11.2 Nausea with vomiting, unspecified; N18.32 Chronic kidney disease, stage 3b; B18.2 Chronic viral hepatitis C; I45.6 Pre-excitation syndrome; B96.20 Unspecified Escherichia coli [E. coli] as the cause of diseases classified elsewhere; K59.04 Chronic idiopathic constipation; D69.6 Thrombocytopenia, unspecified; R16.1 Splenomegaly, not elsewhere classified; M47.816 Spondylosis without myelopathy or radiculopathy, lumbar region; M48.061 Spinal stenosis, lumbar region without neurogenic claudication; F12.188 Cannabis abuse with other cannabis-induced disorder; N39.0 Urinary tract infection, site not specified; J44.9 Chronic obstructive pulmonary disease, unspecified; K21.9 Gastro-esophageal reflux disease without esophagitis; Z88.5 Allergy status to narcotic agent; Z79.82 Long term (current) use of aspirin; Z79.899 Other long term (current) drug therapy; Z87.891 Personal history of nicotine dependence

== ENCOUNTER → 2025-03-12 | Outpatient (REF) | payer MEDICARE, MEDICAID ==
[~2025-03-12] MED LIST changes: +COLL1CAP PO; +LEVO1TAB40 PO
[2025-03-12 20:11] LABS: APPEARANCE, URINE MANUAL CLOUDY (CLEAR)
[2025-03-12 20:12] LABS: COLOR, URINE MANUAL RED (YELLOW); GLUCOSE, URINE (UA) MANUAL NEGATIVE (NEGATIVE); PH,URINE MAN 5.0 UNITS (5.0 - 7.0); PROTEIN, URINE MANUAL 2+ mg/dL (NEGATIVE); SPECIFIC GRAVITY,URINE MANUAL 1.020 (1.002-1.035)
[2025-03-12 20:13] LABS: BILIRUBIN, URINE MANUAL NEGATIVE (NEGATIVE); BLOOD URINE MANUAL POSITIVE (NEGATIVE); KETONE, URINE MANUAL NEGATIVE (NEGATIVE); LEUKOCYTE ESTERASE, URINE MAN POSITIVE (NEGATIVE); NITRITE, URINE MANUAL NEGATIVE (NEGATIVE); UROBILINOGEN, URINE MANUAL NORMAL (NORMAL)
[2025-03-12 20:15] LABS: BACTERIA, URINE NONE SEEN; HYALINE CAST, URINE NONE SEEN /lpf (0-1); RBC, URINE TNTC /hpf (0-3); SQUAMOUS EPITHELIAL CELL URINE NONE SEEN /hpf (SMALL AMT)
== END ==
LOC: M SMT 19:32
PROVIDERS: ATTEND Physician Assistant
DX: R33.9 Retention of urine, unspecified (principal)

== ENCOUNTER → 2025-04-09 | Outpatient (REF) | payer MEDICARE, MEDICAID ==
[2025-04-09 14:22] LABS: APPEARANCE, URINE MANUAL TURBID (CLEAR); COLOR, URINE MANUAL RED (YELLOW)
[2025-04-09 14:25] LABS: GLUCOSE, URINE (UA) MANUAL OBSCURED mg/dL (NEGATIVE); PH,URINE MAN 6.0 UNITS (5.0 - 7.0); PROTEIN, URINE MANUAL 2+ mg/dL (NEGATIVE); SPECIFIC GRAVITY,URINE MANUAL 1.020 (1.002-1.035)
[2025-04-09 14:26] LABS: BILIRUBIN, URINE MANUAL 2+ (NEGATIVE); BLOOD URINE MANUAL POSITIVE (NEGATIVE); KETONE, URINE MANUAL NEGATIVE (NEGATIVE); LEUKOCYTE ESTERASE, URINE MAN POSITIVE (NEGATIVE); NITRITE, URINE MANUAL POSITIVE (NEGATIVE); UROBILINOGEN, URINE MANUAL 1 MG mg/dl (NORMAL)
[2025-04-09 14:33] LABS: RBC, URINE TNTC /hpf (0-3); SQUAMOUS EPITHELIAL CELL URINE SMALL AMOUNT /hpf (SMALL AMT)
[2025-04-09 14:34] LABS: BACTERIA, URINE MOD AMOUNT; MUCUS, URINE SMALL AMOUNT (NEGATIVE); YEAST, URINE MOD AMOUNT
[2025-04-09 14:35] LABS: HYALINE CAST, URINE NONE SEEN /lpf (0-1)
== END ==
LOC: M SMT 13:12
PROVIDERS: ATTEND Physician Assistant
DX: R39.9 Unspecified symptoms and signs involving the genitourinary system (principal)

== ENCOUNTER → 2025-04-15 | Outpatient (REF) | payer MEDICARE, MEDICAID ==
[2025-04-15 14:28] LABS: BASO # 0.1 10^3/uL (0.0-0.2); BASO % 0.9 % (0.0-1.0); EOS # 0.1 10^3/uL (0.0-0.5); EOS % 2.4 % (0.0-3.0); LYMPH # 0.7 10^3/uL (1.5-5.0); LYMPH % 13.3 % (24.0-44.0); MONO # 0.4 10^3/uL (0.0-0.8); MONO % 7.7 % (2.0-8.0); NEUTROPHILS # 4.1 10^3/uL (1.5-8.5); NEUTROPHILS % 75.3 % (36.0-66.0)
[2025-04-15 14:43] LABS: PLATELET COUNT, AUTOMATED 71 10^3/uL (150-450)
[2025-04-15 15:02] LABS: ALT/SGPT 36.0 U/L (7.0-40); AST/SGOT 40.0 U/L (<34); CALCIUM LEVEL 9.3 MG/DL (8.3-10.6); CARBON DIOXIDE LEVEL 28.0 MMOL/L (20-31); CHLORIDE LEVEL 100.0 MMOL/L (98-107); CREATININE FOR GFR 1.39 MG/DL (0.70-1.30); GLOMERULAR FILTRATION RATE 54.9 (>49); POTASSIUM SERUM 4.4 MMOL/L (3.5-5.1); SODIUM LEVEL 139.0 MMOL/L (136-145)
== END ==
LOC: M LAB REF 13:58
PROVIDERS: ATTEND Family Medicine Addiction Medicine
DX: K74.60 Unspecified cirrhosis of liver (principal)

== ENCOUNTER → 2025-06-04 | Outpatient (REF) | payer MEDICARE, MEDICAID ==
[2025-06-04 17:52] LABS: APPEARANCE, URINE MANUAL TURBID (CLEAR); COLOR, URINE MANUAL RED (YELLOW); PH,URINE MAN 6.0 UNITS (5.0 - 7.0)
[2025-06-04 17:53] LABS: GLUCOSE, URINE (UA) MANUAL NEGATIVE (NEGATIVE); KETONE, URINE MANUAL 1+ mg/dL (NEGATIVE); PROTEIN, URINE MANUAL 2+ mg/dL (NEGATIVE); SPECIFIC GRAVITY,URINE MANUAL 1.015 (1.002-1.035); UROBILINOGEN, URINE MANUAL NORMAL (NORMAL)
[2025-06-04 17:54] LABS: BILIRUBIN, URINE MANUAL 2+ (NEGATIVE); BLOOD URINE MANUAL POSITIVE (NEGATIVE); LEUKOCYTE ESTERASE, URINE MAN POSITIVE (NEGATIVE); NITRITE, URINE MANUAL POSITIVE (NEGATIVE)
[2025-06-04 18:19] LABS: RBC, URINE TNTC /hpf (0-3); SQUAMOUS EPITHELIAL CELL URINE LARGE AMOUNT /hpf (SMALL AMT); WBC, URINE TNTC /hpf (0-3)
[2025-06-04 18:20] LABS: BACTERIA, URINE SMALL AMOUNT
[2025-06-04 18:21] LABS: HYALINE CAST, URINE NONE SEEN /lpf (0-1); TRANSITIONAL EPI CELLS, URINE SMALL AMOUNT /hpf
[2025-06-04 18:22] LABS: MUCUS, URINE SMALL AMOUNT (NEGATIVE)
== END ==
LOC: M SMT 16:46
PROVIDERS: ATTEND Physician Assistant
DX: N39.0 Urinary tract infection, site not specified (principal)